=== PATIENT | female | born 1950 | race Caucasian/White ===

== ENCOUNTER → 2017-06-09 | Outpatient (CLI) | payer MEDICARE, MEDICAID, SELFPAY | PROVIDERS: Visit Provider Nurse Practitioner | DX: E78.5 Hyperlipidemia, unspecified (principal) | CPT/HCPCS: 36415; 80053; 80061 ==

== ENCOUNTER → 2017-09-16 09:47 | Outpatient (CLI) | payer MEDICARE, MEDICAID, SELFPAY ==
--- NOTE | 2017-09-16 09:55 | MM_ITS ---
MM Dig screening mamm BI w/CAD CAD Screening ORDERING PHYSICIAN : Kinza Bennett PATIENT AGE: 67 years GENDER: Female COMPARISON: Previous mammograms: April 2010, August 2011 digital mammogram comparisons. Also 2008 in 2008 film screen study INDICATION: 67-year-old. No hormones no new complaints noncontributory family history. TECHNIQUE: Standard CC and MLO images were obtained. R2 CAD reviewed. FINDINGS: RIGHT BREAST:] new Small 6 mm transverse x 7.8 mm length mm nodular density likely located at 5:30 o'clock position inferiorly on the MLO view. And just medial to central line on cc view. Recommend spot view cc 90 and MLO view of this area as well is ultrasound. LEFT BREAST:Of breast itself Stable with no significant new findings. Follow-up in one year. Slight Enlarged axillary lymph nodes bilaterally since 2012, most notable on left: . requires clinical correlation of boyd sites here and elsewhere. For example left axilla a elongated 'peanut shaped'left axillary node measures up to 2.7 cm length today. Whereas in 2012 and measured 1.8 cm in length. However Similar configuration fatty hilum. . A larger 2.9 cm length node is seen deeper at the left axilla on today's study but but appears to maintain a fatty hilum with upper normal thickness cortex . The right axilla the visualized node measures only 16 mm length but but has increased in size from 13 mm length on prior 2012 study. Slight progression of axillary nodes over time may merely reflect benign features but warrant clinical correlation. It would suggest ultrasound survey axillary nodes since the patient is returning. IMPRESSION: 1. Right breast.: Small new nodular density appears to be 5:30 position right breast. Warrant spot views and ultrasound 2. Bilateral breast ultrasound recommended to specifically include survey and cortical measurements of the moderate enlarging axillary lymph nodes versus 2012 mammogram 3.. Left breast itself is stable, with no new areas of concern at the breast itself otherwise seen. Only the larger axillary nodes observed BI-RADS Category: 0 Need Additional Imaging Evaluaiton. RECOMMENDED FOLLOW-UP: IMM - IMMEDIATE FOLLOW-UP RECOMMENDED Spot views right breast, along with bilateral breast ultrasound,. Particular attention axillary nodes to be included (A letter has been sent to the patient regarding results of the study.) In
--- NOTE | 2017-09-16 09:56 | XR_ITS ---
XR DEXA axial skeleton HISTORY: ITS.REASON: OSTEOPENIA ORDERING PHYSICIAN: Kinza Bennett PATIENT AGE: 67 years COMPARISON: None FINDINGS: The L1 L4 density has a T score of 2.2 The BMD measured at the left femoral neck is 0.914 g/cm squared with a T score of -0.9 . This is considered normal according to the World Health Organization criteria. Fracture risk is low. IMPRESSION: Normal bone density. Recommend follow-up exam August 2019
== END ==
PROVIDERS: Family Provider Family Medicine; PCP Family Medicine; Visit Provider Family Medicine
DX: Z12.31 Encounter for screening mammogram for malignant neoplasm of breast (principal); M85.89 Other specified disorders of bone density and structure, multiple sites
CPT/HCPCS: 77067; 77080

== ENCOUNTER → 2017-10-01 12:42 | Outpatient (CLI) | payer MEDICARE, MEDICAID, SELFPAY | PROVIDERS: Family Provider Family Medicine; PCP Family Medicine; Visit Provider Family Medicine | DX: R92.8 Other abnormal and inconclusive findings on diagnostic imaging of breast (principal) | CPT/HCPCS: 77065 ==

== ENCOUNTER → 2017-10-06 10:17 | Outpatient (CLI) | payer MEDICARE, MEDICAID, SELFPAY ==
--- NOTE | 2017-10-01 12:45 | MM_ITS ---
... Exam 1: MM Dig mamm DX unilat RT CAD, --Performed October 01, 2017. ... Exam 2.:.... Bilateral breast ultrasound --performed October 06, 2017 ... US breast RT complete, US breast LT complete... ORDERING PHYSICIAN : Kinza Bennett PATIENT AGE: 67 years GENDER: Female INDICATION: New small density right breast as seen on recent September 2017 screening mammogram Bilateral breast ultrasound performed due to more prominent axillary lymph nodes bilaterally COMPARISON: Previous mammograms: September 17 2011 and October 01, 2017 TECHNIQUE: . Spot view cc and MLO view with Full breast 90 degrees viewPerformed October 01, 2017. RIGHT BREAST DIAGNOSTIC MAMMOGRAM:. Spot views: We again see a small round density towards 5-5 30 position of the right breast. It measures up to 5 mm x 6 mm size. . A small stable punctate benign-appearing calcification is seen at the inferior margin of this this subtle ovoid density. On ultrasound was as a subsequent performed on 10/06/2017-reveal a small cyst appears to account for this ovoid density described above. Also on mammography there is a slight second tiny area of nodularity extending anterior from this feature described above yielding snowman shaped. This additional satellite density was only questionably seen on subsequent ultrasound. Given this and Given that the overall this area slightly more prominent on mammography than ultrasound,, and with this tiny calcification at its inferior margin,--given these features would suggest follow-up right mammogram with right breast ultrasound in 6 months.... The axilla region not included on today's right breast images is monitored by Dr. Sparrow ====IMPRESSION: A 6 mm ovoid area at 5:00 right breast most likely due to a cyst as seen on ultrasound subsequent performed on 10/06/2017 . Question slight additional t tiny additional bilobed area of nodularity extending anteriorly from this density on mammography that was only question seen on subsequent ultrasound. Would suggest follow-up right mammogram and right breast ultrasound 6 months BILATERAL BREAST ULTRASOUND Including Axillary Survey: Procedure:. ultrasound survey imaging entire right and left breast, including axillary survey performed ==RIGHT BREAST ULTRASOUND.... Including axillary survey There is a small debris filled cyst with slight irregular margin at 5:00..... This measures up to 5.2 mm size on ultrasound. On one of the images there is question of a small tiny vague cystic area seen just adjacent, which may account for its slight bilobed appearance on mammography. Survey right axilla demonstrates few benign axillary lymph nodes largest measuring 2.1 cm length. With normal appearing thin cortex.& Normal Fatty hilum at these visualized, image nodes. ==LEFT BREAST ULTRASOUND... Including axilla survey No cyst or solid nodule seen within the left breast itself. No areas of concern at the breast. The recent screening mammogram showed interval enlargement of axillary nodes here versus 2012 in 2009 The largest axillary lymph node visualized on today's measures up to 3.2 cm in length 1.2 cm AP. I am slightly concerned that the cortex measures 5.4 mm. This is slightly generous but there is a fatty hilum. I would note that larger axillary nodes of versus 2012 2009 2007 mammogram. This is most evident on the left.. This is a nonspecific finding but with this I would suggest at least CXR to correlate. Palpation of other areas including neck, supraclavicular and groin to evaluate for any abnormal adenopathy, along with palpation of abdomen to check spleen suggested. ...... IMPRESSION / SUMMARY...... Mammography & ultrasound: 1. DIAGNOSTIC RIGHT MAMMOGRAM performed on
== END ==
PROVIDERS: Family Provider Family Medicine; PCP Family Medicine; Visit Provider Family Medicine
DX: R92.8 Other abnormal and inconclusive findings on diagnostic imaging of breast (principal)
CPT/HCPCS: 76641; 77065

== ENCOUNTER → 2017-10-27 15:49 | Outpatient (POV) | payer MEDICARE, MEDICAID, SELFPAY | PROVIDERS: Family Provider Family Medicine; PCP Family Medicine | DX: Z00.00 Encounter for general adult medical examination without abnormal findings (principal) ==

== ENCOUNTER → 2018-01-04 07:27 | Outpatient (CLI) | payer MEDICARE, MEDICAID, SELFPAY ==
[2018-01-04 07:33] LABS: Microscopic, Urine URINE MICROSCOPIC (MICROSCOPIC)
[2018-01-04 08:17] LABS: Basophils # 0.2 K/mm3 (0-0.2); Basophils % 0.8 % (0.1-2.0); Eosinophils # 0.4 K/mm3 (0.0-0.4); Hematocrit 38.6 % (37.0-47.0); Hemoglobin 12.3 g/dL (12.2-16.2); Lymphocytes # 14.1 K/mm3 (0.7-4.5); Lymphocytes % 73.5 K/mm3 (10-50); Mean Corpuscular Hemoglobin 29.4 pg (27.0-31.2); Mean Platelet Volume 7.4 fl (7.4-10.4); Monocytes # 0.4 K/mm3 (0.1-1.0); Neutrophils # 4.2 K/mm3 (1.8-7.8); Neutrophils % 21.7 % (37.0-80.0); Platelet Count 169 K/mm3 (142-424); Red Cell Distribution Width 14.5 % (11.5-17.5); White Blood Count 19.2 K/mm3 (4.8-10.8)
[2018-01-04 08:33] LABS: MANUAL DIFFERENTIAL MANUAL DIFFERENTIAL (MANUAL DIFF)
[2018-01-04 08:57] LABS: Appearance,Urine CLEAR (Clear); Bilirubin,Urine Negative (Negative); Blood, Urine TRACE-L (Negative); Color,Urine YELLOW (Yellow); Glucose,Urine (UA) 2+ (Negative); Ketones,Urine Negative (Negative); Leukocyte Esterase,Urine Negative (Negative); Nitrate,Urine Negative (Negative); Protein,Urine 3+ (Negative); Specific Gravity, Urine 1.025 (1.005-1.030); Urobilinogen,Urine 0.2 EU/dl (0.2)
[2018-01-04 09:00] LABS: Creatinine,Urine Random 73 mg/dL (20-320); Total Protein,Urine Random 213.3 mg/dL (0.0-11.9)
[2018-01-04 10:03] LABS: Bacteria,Urine Trace /lpf; RBC,Urine Occasional #/hpf (0-3)
[2018-01-04 10:15] LABS: Albumin Level 2.8 gm/dL (3.4-5.0); Blood Urea Nitrogen 38 mg/dL (7-18); Calcium 7.9 mg/dL (8.5-10.1); Carbon Dioxide 26 mmol/L (21.0-32.0); Chloride 105 mmol/L (98-107); Creatinine,Serum 1.66 mg/dL (0.55-1.02); Estimated Glomerular Filt Rate 31 ml/min (>60); GFR (African American) 37 ML/MIN (>60); Glucose 279 mg/dL (74-106); Phosphorous 2.6 mg/dL (2.4-4.9); Sodium 140 mmol/L (136-145)
[2018-01-04 14:13] LABS: Eosinophils % 2 % (0-3); Lymphocytes % 69 % (10-50); Monocytes % 5 % (2-9); Neutrophils % 22 % (42-76); Platelet Estimate Normal; RBC Morphology Normal; Total Cells Counted 100
[2018-01-06 09:10] LABS: Parathyroid Hormone Intact 71 pg/mL (15-65); Vitamin D 25 Hydroxy 12.8 ng/mL (30.0-100.0)
== END ==
PROVIDERS: Visit Provider Internal Medicine Nephrology
DX: N18.3 Chronic kidney disease, stage 3 (moderate) (principal); R80.9 Proteinuria, unspecified; N25.81 Secondary hyperparathyroidism of renal origin
CPT/HCPCS: 36415; 80069; 81001; 82570; 82652; 83970; 84155; 85007; 85025

== ENCOUNTER → 2018-05-18 07:37 | Outpatient (CLI) | payer MEDICARE, MEDICAID, SELFPAY ==
[2018-05-18 08:08] LABS: Basophils # 0.1 K/mm3 (0-0.2); Basophils % 0.8 % (0.1-2.0); Eosinophils # 0.5 K/mm3 (0.0-0.4); Eosinophils % 3.4 % (0.1-12.0); Hematocrit 37.9 % (37.0-47.0); Lymphocytes # 10.6 K/mm3 (0.7-4.5); Lymphocytes % 70.1 % (10-50); Mean Corpuscular HGB Conc 31.7 g/dL (31.8-35.4); Mean Corpuscular Hemoglobin 30.2 pg (27.0-31.2); Mean Corpuscular Volume 95.3 fl (81-99); Mean Platelet Volume 7.1 fl (7.4-10.4); Monocytes # 0.3 K/mm3 (0.1-1.0); Monocytes % 1.8 % (1.7-9.3); Neutrophils # 3.6 K/mm3 (1.8-7.8); Platelet Count 150 K/mm3 (142-424); Red Blood Count 3.98 M/mm3 (4.20-5.40); Red Cell Distribution Width 14.8 % (11.5-17.5); White Blood Count 15.1 K/mm3 (4.8-10.8)
[2018-05-18 08:18] LABS: MANUAL DIFFERENTIAL MANUAL DIFFERENTIAL (MANUAL DIFF)
[2018-05-18 09:40] LABS: Lymphocytes % 61 % (10-50); Monocytes % 2 % (2-9); Neutrophils % 27 % (42-76); Platelet Estimate Normal; Total Cells Counted 100
== END ==
PROVIDERS: Visit Provider Internal Medicine Hematology & Oncology
DX: C91.10 Chronic lymphocytic leukemia of B-cell type not having achieved remission (principal)
CPT/HCPCS: 36415; 85007; 85025

== ENCOUNTER → 2018-07-14 07:15 | Outpatient (CLI) | payer MEDICARE, MEDICAID, SELFPAY ==
[2018-07-14 13:36] LABS: Alanine Aminotransferase 55 U/L (12-78); Albumin Level 3.1 gm/dL (3.4-5.0); Alkaline Phosphatase 73 U/L (46-116); Aspartate Amino Transferase 25 U/L (15-37); Bilirubin,Direct 0.1 mg/dL (0.0-0.2); Bilirubin,Indirect 0.3 mg/dL (0.0-0.9); Bilirubin,Total 0.4 mg/dL (0.2-1.0); Chol/HDL Ratio 2.7 (1-3.5); Cholesterol 118 mg/dL (140-200); HDL Cholesterol 43 mg/dL (29-89); LDL Cholesterol 48 mg/dL (0-130); Triglycerides 135 mg/dL (30-200); VLDL Cholesterol 27 mg/dL (0-40)
== END ==
PROVIDERS: Visit Provider Nurse Practitioner
DX: E78.5 Hyperlipidemia, unspecified (principal)
CPT/HCPCS: 36415; 80061; 80076

== ENCOUNTER → 2018-09-13 07:22 | Outpatient (CLI) | payer MEDICARE, MEDICAID, SELFPAY ==
[2018-09-13 07:26] LABS: Microscopic, Urine URINE MICROSCOPIC (MICROSCOPIC)
[2018-09-13 07:52] LABS: Basophils # 0.2 K/mm3 (0-0.2); Basophils % 0.9 % (0.1-2.0); Eosinophils # 0.5 K/mm3 (0.0-0.4); Eosinophils % 2.9 % (0.1-12.0); Hematocrit 40.8 % (37.0-47.0); Hemoglobin 12.9 g/dL (12.2-16.2); Lymphocytes # 12.7 K/mm3 (0.7-4.5); Lymphocytes % 72.4 % (10-50); Mean Corpuscular HGB Conc 31.5 g/dL (31.8-35.4); Mean Corpuscular Hemoglobin 29.6 pg (27.0-31.2); Mean Corpuscular Volume 93.9 fl (81-99); Mean Platelet Volume 7.2 fl (7.4-10.4); Monocytes # 0.3 K/mm3 (0.1-1.0); Monocytes % 1.6 % (1.7-9.3); Neutrophils # 3.9 K/mm3 (1.8-7.8); Neutrophils % 22.2 % (37.0-80.0); Platelet Count 158 K/mm3 (142-424); Red Blood Count 4.35 M/mm3 (4.20-5.40); Red Cell Distribution Width 14.9 % (11.5-17.5); White Blood Count 17.6 K/mm3 (4.8-10.8)
[2018-09-13 08:07] LABS: MANUAL DIFFERENTIAL MANUAL DIFFERENTIAL (MANUAL DIFF)
[2018-09-13 08:18] LABS: Appearance,Urine CLEAR (Clear); Bilirubin,Urine Negative (Negative); Blood, Urine Negative (Negative); Color,Urine YELLOW (Yellow); Glucose,Urine (UA) Negative (Negative); Ketones,Urine Negative (Negative); Leukocyte Esterase,Urine Negative (Negative); Nitrate,Urine Negative (Negative); Protein,Urine 2+ (Negative); Urobilinogen,Urine 0.2 EU/dl (0.2)
[2018-09-13 08:27] LABS: Creatinine,Urine Random 96 mg/dL (20-320); Total Protein,Urine Random 86.1 mg/dL (0.0-11.9)
[2018-09-13 09:01] LABS: Bacteria,Urine Trace /lpf; Mucus,Urine 1+ /lpf; RBC,Urine Occasional #/hpf (0-3); WBC,Urine Occasional #/hpf (0-3)
[2018-09-13 09:27] LABS: Albumin Level 3.2 gm/dL (3.4-5.0); Anion Gap 11.8 mEq/L (5-15); Blood Urea Nitrogen 36 mg/dL (7-18); Carbon Dioxide 29 mmol/L (21.0-32.0); Chloride 109 mmol/L (98-107); Creatinine,Serum 1.69 mg/dL (0.55-1.02); Estimated Glomerular Filt Rate 30 ml/min (>60); GFR (African American) 36 ML/MIN (>60); Glucose 147 mg/dL (74-106); Phosphorous 4.1 mg/dL (2.4-4.9); Potassium 4.8 mmoL/L (3.5-5.1); Sodium 145 mmol/L (136-145)
[2018-09-13 10:48] LABS: Eosinophils % 1 % (0-3); Lymphocytes % 68 % (10-50); Monocytes % 2 % (2-9); Neutrophils % 20 % (42-76); Platelet Estimate Normal; Total Cells Counted 100
[2018-09-14 08:45] LABS: Vitamin D 25 Hydroxy 24.9 ng/mL (30.0-100.0)
[2018-09-15 12:57] LABS: Parathyroid Hormone Intact 67 pg/mL (15-65)
== END ==
PROVIDERS: Visit Provider Internal Medicine Nephrology
DX: N25.81 Secondary hyperparathyroidism of renal origin (principal); R80.9 Proteinuria, unspecified; N18.9 Chronic kidney disease, unspecified
CPT/HCPCS: 36415; 80069; 81001; 82570; 82652; 83970; 84155; 85007; 85025

== ENCOUNTER → 2018-11-24 07:42 | Outpatient (CLI) | payer MEDICARE, MEDICAID, SELFPAY ==
[2018-11-24 08:10] LABS: Basophils # 0.1 K/mm3 (0-0.2); Basophils % 0.7 % (0.1-2.0); Eosinophils # 0.5 K/mm3 (0.0-0.4); Eosinophils % 2.7 % (0.1-12.0); Hematocrit 37.3 % (37.0-47.0); Lymphocytes # 11.5 K/mm3 (0.7-4.5); Lymphocytes % 69.7 % (10-50); Mean Corpuscular HGB Conc 32.2 g/dL (31.8-35.4); Mean Corpuscular Volume 90.1 fl (81-99); Monocytes # 0.4 K/mm3 (0.1-1.0); Monocytes % 2.4 % (1.7-9.3); Neutrophils % 24.4 % (37.0-80.0); Platelet Count 175 K/mm3 (142-424); Red Blood Count 4.14 M/mm3 (4.20-5.40); Red Cell Distribution Width 14.6 % (11.5-17.5); White Blood Count 16.4 K/mm3 (4.8-10.8)
[2018-11-24 08:18] LABS: MANUAL DIFFERENTIAL MANUAL DIFFERENTIAL (MANUAL DIFF)
[2018-11-24 12:54] LABS: Eosinophils % 1 % (0-3); Lymphocytes % 67 % (10-50); Monocytes % 3 % (2-9); Neutrophils % 29 % (42-76); Total Cells Counted 100
[2018-11-24 12:55] LABS: Platelet Estimate Normal; RBC Morphology Normal
== END ==
PROVIDERS: Visit Provider Internal Medicine Hematology & Oncology
DX: C91.90 Lymphoid leukemia, unspecified not having achieved remission (principal)
CPT/HCPCS: 36415; 85007; 85025

== ENCOUNTER → 2019-02-15 07:14 | Outpatient (CLI) | payer MEDICARE, MEDICAID, SELFPAY ==
[2019-02-15 07:16] LABS: Microscopic, Urine URINE MICROSCOPIC (MICROSCOPIC)
[2019-02-15 07:30] LABS: Appearance,Urine CLEAR (Clear); Bilirubin,Urine Negative (Negative); Blood, Urine TRACE-L (Negative); Color,Urine YELLOW (Yellow); Glucose,Urine (UA) Negative (Negative); Ketones,Urine Negative (Negative); Leukocyte Esterase,Urine Negative (Negative); Nitrate,Urine Negative (Negative); Protein,Urine 2+ (Negative); Specific Gravity, Urine 1.025 (1.005-1.030); Urobilinogen,Urine 0.2 EU/dl (0.2)
[2019-02-15 07:39] LABS: Bacteria,Urine Trace /lpf; Creatinine,Urine Random 93 mg/dL (20-320); RBC,Urine Occasional #/hpf (0-3); Total Protein,Urine Random 82.1 mg/dL (0.0-11.9)
[2019-02-15 09:29] LABS: Albumin Level 3.4 gm/dL (3.4-5.0); Anion Gap 11.3 mEq/L (5-15); Blood Urea Nitrogen 38 mg/dL (7-18); Calcium 9.1 mg/dL (8.5-10.1); Carbon Dioxide 29 mmol/L (21.0-32.0); Chloride 108 mmol/L (98-107); Creatinine,Serum 1.78 mg/dL (0.55-1.02); Estimated Glomerular Filt Rate 28 ml/min (>60); GFR (African American) 34 ML/MIN (>60); Glucose 176 mg/dL (74-106); Potassium 4.3 mmoL/L (3.5-5.1); Sodium 144 mmol/L (136-145)
== END ==
PROVIDERS: Visit Provider Internal Medicine Nephrology
DX: R80.9 Proteinuria, unspecified (principal); N18.3 Chronic kidney disease, stage 3 (moderate)
CPT/HCPCS: 36415; 80069; 81001; 82570; 84155

== ENCOUNTER → 2019-03-08 12:17 | Outpatient (POV) | payer MEDICARE, MEDICAID, SELFPAY | DX: Z00.00 Encounter for general adult medical examination without abnormal findings (principal) ==

== ENCOUNTER → 2019-05-26 07:34 | Outpatient (CLI) | payer MEDICARE, MEDICAID, SELFPAY ==
[2019-05-26 07:54] LABS: Basophils # 0.1 K/mm3 (0-0.2); Basophils % 0.8 % (0.1-2.0); Eosinophils # 0.4 K/mm3 (0.0-0.4); Eosinophils % 2.3 % (0.1-12.0); Hemoglobin 12.8 g/dL (12.2-16.2); Lymphocytes # 11.4 K/mm3 (0.7-4.5); Lymphocytes % 68.5 % (10-50); Mean Corpuscular HGB Conc 30.6 g/dL (31.8-35.4); Mean Corpuscular Volume 97.8 fl (81-99); Mean Platelet Volume 7.9 fl (7.4-10.4); Monocytes # 0.3 K/mm3 (0.1-1.0); Monocytes % 1.8 % (1.7-9.3); Neutrophils # 4.5 K/mm3 (1.8-7.8); Neutrophils % 26.6 % (37.0-80.0); Platelet Count 145 K/mm3 (142-424); Red Blood Count 4.29 M/mm3 (4.20-5.40); White Blood Count 16.7 K/mm3 (4.8-10.8)
[2019-05-26 08:04] LABS: MANUAL DIFFERENTIAL MANUAL DIFFERENTIAL (MANUAL DIFF)
[2019-05-26 09:10] LABS: Alanine Aminotransferase 80 U/L (12-78); Albumin Level 3.2 gm/dL (3.4-5.0); Albumin/Globulin Ratio 1.3 (1.1-1.8); Alkaline Phosphatase 83 U/L (46-116); Anion Gap 14.7 mEq/L (5-15); Aspartate Amino Transferase 63 U/L (15-37); Bilirubin,Total 0.3 mg/dL (0.2-1.0); Blood Urea Nitrogen 39 mg/dL (7-18); Calcium 8.7 mg/dL (8.5-10.1); Carbon Dioxide 27 mmol/L (21.0-32.0); Chloride 108 mmol/L (98-107); Creatinine,Serum 1.89 mg/dL (0.55-1.02); Estimated Glomerular Filt Rate 26 ml/min (>60); GFR (African American) 32 ML/MIN (>60); Globulin 2.5 gm/dl (1.3-3.2); Glucose 176 mg/dL (74-106); Potassium 5.7 mmoL/L (3.5-5.1); Sodium 144 mmol/L (136-145); Total Protein,Serum 5.7 gm/dL (6.4-8.2)
[2019-05-26 09:32] LABS: Lymphocytes % 62 % (10-50); Monocytes % 7 % (2-9); Neutrophils % 26 % (42-76); Total Cells Counted 100
[2019-05-26 09:33] LABS: Acanthocytes 1+; Anisocytosis 1+; Hypochromasia 1+; Platelet Estimate Normal; Poikilocytosis 1+; Stomatocytes 1+
== END ==
PROVIDERS: Visit Provider Internal Medicine Hematology & Oncology
DX: C91.90 Lymphoid leukemia, unspecified not having achieved remission (principal)
CPT/HCPCS: 36415; 80053; 85007; 85025

== ENCOUNTER → 2020-07-16 07:40 | Outpatient (CLI) | payer MEDICARE, MEDICAID, SELFPAY ==
[2020-07-16 07:45] LABS: Microscopic, Urine URINE MICROSCOPIC (MICROSCOPIC)
[2020-07-16 09:05] LABS: Appearance,Urine CLEAR (Clear); Bilirubin,Urine Negative (Negative); Blood, Urine TRACE-L (Negative); Color,Urine YELLOW (Yellow); Glucose,Urine (UA) Negative (Negative); Ketones,Urine Negative (Negative); Leukocyte Esterase,Urine Negative (Negative); Nitrate,Urine Negative (Negative); PH,Urine 5.5 (5.0-8.5); Protein,Urine 1+ (Negative); Urobilinogen,Urine 0.2 EU/dl (0.2)
[2020-07-16 09:14] LABS: Creatinine,Urine Random 67 mg/dL (Not Estab.)
[2020-07-16 09:23] LABS: Basophils # 0.2 K/mm3 (0-0.2); Eosinophils # 0.4 K/mm3 (0.0-0.4); Eosinophils % 1.8 % (0.1-12.0); Hematocrit 42.5 % (37.0-47.0); Hemoglobin 13.6 g/dL (12.2-16.2); Lymphocytes # 19.1 K/mm3 (0.7-4.5); Lymphocytes % 78.4 % (10-50); Mean Corpuscular HGB Conc 32.1 g/dL (31.8-35.4); Mean Corpuscular Volume 96.8 fl (81-99); Mean Platelet Volume 8.1 fl (7.4-10.4); Monocytes # 0.4 K/mm3 (0.1-1.0); Monocytes % 1.7 % (1.7-9.3); Neutrophils # 4.2 K/mm3 (1.8-7.8); Neutrophils % 17.2 % (37.0-80.0); Platelet Count 158 K/mm3 (142-424); Red Cell Distribution Width 15.4 % (11.5-17.5); White Blood Count 24.4 K/mm3 (4.8-10.8)
[2020-07-16 09:26] LABS: MANUAL DIFFERENTIAL MANUAL DIFFERENTIAL (MANUAL DIFF)
[2020-07-16 09:53] LABS: Albumin Level 3.9 g/dl (3.5-5.0); Blood Urea Nitrogen 39 mg/dl (7-17); Calcium 9.3 mg/dl (8.4-10.2); Carbon Dioxide 28 mmol/L (22.0-30.0); Chloride 104 mmol/L (98-107); Estimated Glomerular Filt Rate 28 ml/min (>60); GFR (African American) 34 ML/MIN (>60); Glucose 84 mg/dl (74-100); Phosphorous 4.9 mg/dl (2.5-4.5); Sodium 140 mmol/L (136-145)
[2020-07-16 10:07] LABS: Intact Parathyroid Hormone 105.7 pg/mL (7.5-53.5)
[2020-07-16 10:11] LABS: 25-OH Vitamin D, Total 35.6 ng/mL (30-100)
[2020-07-16 11:45] LABS: Lymphocytes % 69 % (10-50); Monocytes % 10 % (2-9); Neutrophils % 20 % (42-76); Platelet Estimate Normal; RBC Morphology Normal; Total Cells Counted 100
== END ==
PROVIDERS: Visit Provider Internal Medicine Nephrology
DX: N18.4 Chronic kidney disease, stage 4 (severe) (principal)
CPT/HCPCS: 36415; 80069; 81001; 82306; 82570; 83970; 84155; 85007; 85025

== ENCOUNTER → 2020-11-18 10:36 | Outpatient (CLI) | payer MEDICARE, MEDICAID, SELFPAY ==
[2020-11-18 11:25] LABS: Creatinine,Urine Random 76 mg/dL (Not Estab.)
[2020-11-18 11:51] LABS: Albumin Level 3.7 g/dl (3.5-5.0); Anion Gap 8.4 mEq/L (5-15); Blood Urea Nitrogen 46 mg/dl (7-17); Calcium 8.6 mg/dl (8.4-10.2); Carbon Dioxide 27 mmol/L (22.0-30.0); Chloride 110 mmol/L (98-107); Estimated Glomerular Filt Rate 26 ml/min (>60); GFR (African American) 32 ML/MIN (>60); Glucose 159 mg/dl (74-100); Phosphorous 3.9 mg/dl (2.5-4.5); Potassium 4.4 mmoL/L (3.5-5.1); Sodium 141 mmol/L (136-145)
== END ==
PROVIDERS: Visit Provider Internal Medicine Nephrology
DX: N18.4 Chronic kidney disease, stage 4 (severe) (principal)
CPT/HCPCS: 36415; 80069; 82306; 82570; 84155

== ENCOUNTER → 2020-11-25 11:55 | Outpatient (POV) | payer MEDICARE, MEDICAID, SELFPAY | PROVIDERS: Visit Provider Internal Medicine Nephrology | DX: Z00.00 Encounter for general adult medical examination without abnormal findings (principal) ==

== ENCOUNTER → 2021-01-08 09:22 | Outpatient (CLI) | payer MEDICARE, MEDICAID, SELFPAY ==
[2021-01-08 09:43] LABS: Eosinophils # 0.7 K/mm3 (0.0-0.4)
[2021-01-08 09:50] LABS: MANUAL DIFFERENTIAL MANUAL DIFFERENTIAL (MANUAL DIFF)
[2021-01-08 09:59] LABS: Basophils % 2.9 % (0.1-2.0); Eosinophils % 2.6 % (0.1-12.0); Hematocrit 36.5 % (37.0-47.0); Hemoglobin 11.9 g/dL (12.2-16.2); Lymphocytes # 21.3 K/mm3 (0.7-4.5); Lymphocytes % 76.2 % (10-50); Mean Corpuscular HGB Conc 32.6 g/dL (31.8-35.4); Mean Corpuscular Hemoglobin 30.5 pg (27.0-31.2); Mean Corpuscular Volume 93.7 fl (81-99); Mean Platelet Volume 7.6 fl (7.4-10.4); Monocytes # 0.4 K/mm3 (0.1-1.0); Monocytes % 1.4 % (1.7-9.3); Neutrophils # 4.7 K/mm3 (1.8-7.8); Neutrophils % 16.9 % (37.0-80.0); Platelet Count 149 K/mm3 (142-424)
[2021-01-08 10:00] LABS: Basophils # 0.8 K/mm3 (0-0.2)
[2021-01-08 10:25] LABS: Eosinophils % 2 % (0-3); Lymphocytes % 81 % (10-50); Monocytes % 1 % (2-9); Neutrophils % 12 % (42-76); Total Cells Counted 100
[2021-01-08 10:26] LABS: Platelet Estimate Normal
[2021-01-08 10:27] LABS: RBC Morphology Normal
== END ==
PROVIDERS: Visit Provider Internal Medicine Hematology & Oncology
DX: C91.10 Chronic lymphocytic leukemia of B-cell type not having achieved remission (principal)
CPT/HCPCS: 36415; 85007; 85025

== ENCOUNTER 2021-01-29 09:16 | Emergency (ER) | payer MEDICARE, MEDICAID, SELFPAY ==
[2021-01-29 10:03] VITALS: BP 143/67; PULSE 82; RESP 19; TEMP 36.8; O2SAT 98; BMI 32.5
--- NOTE | 2021-01-29 10:06 | HMH.EDUTC ---
[facility] [place] Clinical Impression: UTI (urinary tract infection) Qualifiers: Urinary tract infection type: site unspecified Hematuria presence: with hematuria Qualified Code(s): N39.0 - Urinary tract infection, site not specified; R31.9 - Hematuria, unspecified Disposition: Home, Self-Care Condition on Discharge: Good Instructions: DI for Urinary Tract Infection (UTI), Cefdinir Additional Instructions: *Increase fluids. Water not Soda or Tea *Start antibiotic immediately and be sure to take as ordered for the FULL length of time although you should start to see improvement over the next 48 hours *Be SURE to follow up anytime for new or worsening symptoms with your family doctor. AND in 48 hours for urine culture results with your family doctor, if you do not have a doctor then you may call back to the [facility] for urine culture results and further treatment. We do recommend that you choose and establish care with a Primary Care Physician. AND follow up with them in 10-14 days to repeat UA to ensure infection is resolved and blood no longer present *Be sure to let your PCP know that we sent urine cultures from the [facility] so they can follow up to ensure that you area the on the correct antibiotic Call your doctor office and make appointment for 48 hours (2 days from today) to follow up and get the results of your urine culture and further treatment Prescriptions: Cefdinir [Omnicef 300mg Capsule] 300 mg PO BID #14 cap Transmission Status: Pending to [id number] Referrals: Kinza Bennett [Primary Care Provider] - As needed Time of Disposition: 10:17 Medical Decision Making - Dirk Inquiry Pt receiving controlled substance: No Dirk was queried for this patient: No Vital Signs: 01/29/21 10:03 Temperature 98.2 F Temperature Source Oral Pulse Rate [Left] 82 Respiratory Rate 19 Blood Pressure [Right Arm] 143/67 H Blood Pressure Mean [Right Arm] 92 02 Sat by Pulse Oximetry 98 - Lab Data Lab results reviewed: Yes: I reviewed the patient's lab results. Orders (Tests/Meds): ORDERS Category Date Time Status Urine Culture Stat Micro 01/29/21 10:06 Ordered Medical Decision Narrative: Medication dosed per pharmacy [facility] [place] - General Stated complaint: possible uti Time Seen by Provider: 01/29/21 10:07 Mode of Arrival: Ambulatory Source of Information: Patient Limitations: No Limitations Description of Symptoms (Recalled from Triage Doc. by RN): pt c/o urinary frequency since yesterday. pt thinks she has a uti. HEENT Symptoms (Recalled from RN notes): No Resp Symptoms (Recalled from RN notes): No Skin Symptoms (Recalled from RN notes): No MS Symptoms (Recalled from RN notes): No Functional Status (Recalled from RN notes): na - History of Present Illness Provider Complaint: Patient states that she has been having feeling of urgency and frequency since yesterday States that she feels like she may have a UTI again States that she had UTI in December and took Cipro but doesnt feel like it cleared it all the way - Related Data Home Medications Medication Instructions Recorded Confirmed Doxazosin Mesylate [Doxazosin 1mg 1 mg PO DAILY 11/23/17 04/24/18 Tab] Insulin Aspart [Novolog Flexpen] 10 - 14 units SQ TID 11/23/17 11/29/17 Metoprolol Succinate 25 mg PO BID 11/23/17 04/24/18 Pravastatin Sodium 80 mg PO DAILY 11/23/17 04/24/18 calcitrioL [Calcitriol 0.25mcg 0.25 mg PO WEEKLY 11/23/17 04/24/18 Capsule] lisinopriL [Lisinopril 30mg Tablet] 30 mg PO BID 11/23/17 04/24/18 Ezetimibe [Zetia] 10 mg PO HS 04/24/18 04/24/18 Insulin Degludec [Tresiba 32 unit SQ BID 04/24/18 04/24/18 Flextouch U-100] Previous Rx's Medication Instructions Recorded prednisoLONE acetate [Pred Forte 1 - 2 drops EYE-BOTH QID #1 04/24/18 1% opth solution 5mL] drops.susp Cefdinir [Omnicef 300mg Capsule] 300 mg PO BID #14 cap 01/29/21 Allergies Allergy/AdvReac Type Severity Reaction Status Date / Time
[2021-01-29 10:23] VITALS: BP 140/72; PULSE 88; RESP 19; TEMP 36.8
[2021-01-29 12:05] LABS: Apearance,Urine Clear (Clear); Bilirubin,Urine Negative (Negative); Blood, Urine 3+ (Negative); Color,Urine Yellow (Yellow); Glucose,Urine (UA) Negative (Negative); Ketones,Urine Negative (Negative); PH,Urine 5.5 (5.0-8.5); Protein,Urine 1+ (Negative); Specific Gravity, Urine 1.025 (1.005-1.030)
[2021-01-29 12:06] LABS: UTC Leukocyte Esterase,Urine 2+ (Negative); UTC Nitrate,Urine Negative (Negative); Urobilinogen,Urine 0.2 EU/dl (0.2)
== END 2021-01-29 10:26 | disposition home or self-care (01) ==
PROVIDERS: Emergency Provider Nurse Practitioner; PCP Family Medicine
DX: N30.01 Acute cystitis with hematuria (principal); B95.61 Methicillin susceptible Staphylococcus aureus infection as the cause of diseases classified elsewhere; E10.9 Type 1 diabetes mellitus without complications; I10 Essential (primary) hypertension; E78.5 Hyperlipidemia, unspecified; Z79.899 Other long term (current) drug therapy
CPT/HCPCS: G0463; 81003; 87086; 87088; 87186; 99202

== ENCOUNTER → 2021-04-21 09:59 | Outpatient (CLI) | payer MEDICARE, MEDICAID, SELFPAY ==
[2021-04-21 10:30] LABS: Creatinine,Urine Random 93 mg/dL (Not Estab.)
[2021-04-21 11:06] LABS: Albumin Level 3.5 g/dl (3.5-5.0); Anion Gap 12.6 mEq/L (5-15); Blood Urea Nitrogen 37 mg/dl (7-17); Calcium 8.6 mg/dl (8.4-10.2); Carbon Dioxide 26 mmol/L (22.0-30.0); Chloride 109 mmol/L (98-107); Estimated Glomerular Filt Rate 32 ml/min (>60); GFR (African American) 38 ML/MIN (>60); Glucose 128 mg/dl (74-100); Phosphorous 3.6 mg/dl (2.5-4.5); Potassium 4.6 mmoL/L (3.5-5.1); Sodium 143 mmol/L (136-145)
[2021-04-21 11:19] LABS: Microalbumin/Creatinine Ratio 994.4
== END ==
PROVIDERS: Visit Provider Internal Medicine Nephrology
DX: N18.4 Chronic kidney disease, stage 4 (severe) (principal)
CPT/HCPCS: 36415; 80069; 82043; 82570

== ENCOUNTER → 2021-05-26 11:04 | Outpatient (POV) | payer MEDICARE, MEDICAID, SELFPAY | PROVIDERS: Visit Provider Internal Medicine Nephrology | DX: Z00.00 Encounter for general adult medical examination without abnormal findings (principal) ==

== ENCOUNTER → 2021-07-08 10:15 | Outpatient (CLI) | payer MEDICARE, MEDICAID, SELFPAY ==
[2021-07-08 10:41] LABS: Basophils # 0.5 K/mm3 (0-0.2); Basophils % 1.8 % (0.1-2.0); Eosinophils # 0.5 K/mm3 (0.0-0.4); Eosinophils % 1.8 % (0.1-12.0); Hematocrit 38.6 % (37.0-47.0); Hemoglobin 12.2 g/dL (12.2-16.2); Lymphocytes # 21.5 K/mm3 (0.7-4.5); Mean Corpuscular HGB Conc 31.6 g/dL (31.8-35.4); Mean Corpuscular Hemoglobin 31.3 pg (27.0-31.2); Mean Corpuscular Volume 99.1 fl (81-99); Monocytes # 0.4 K/mm3 (0.1-1.0); Monocytes % 1.5 % (1.7-9.3); Platelet Count 145 K/mm3 (142-424); Red Cell Distribution Width 16.2 % (11.5-17.5); White Blood Count 27.9 K/mm3 (4.8-10.8)
[2021-07-08 11:01] LABS: MANUAL DIFFERENTIAL MANUAL DIFFERENTIAL (MANUAL DIFF)
[2021-07-08 13:23] LABS: Eosinophils % 2 % (0-3); Lymphocytes % 80 % (10-50); Neutrophils % 18 % (42-76); Platelet Estimate Normal; RBC Morphology Normal; Total Cells Counted 100
== END ==
PROVIDERS: Visit Provider Internal Medicine Hematology & Oncology
DX: C91.10 Chronic lymphocytic leukemia of B-cell type not having achieved remission (principal)
CPT/HCPCS: 36415; 85007; 85025

== ENCOUNTER 2021-09-12 09:15 | Emergency (ER) | payer MEDICARE, MEDICAID, SELFPAY ==
[2021-09-12 10:20] VITALS: BP 157/63; PULSE 78; RESP 18; TEMP 36.6; O2SAT 95; BMI 37.0
--- NOTE | 2021-09-12 10:39 | HMH.EDUTC ---
[facility] [place] Clinical Impression: UTI (urinary tract infection) Qualifiers: Urinary tract infection type: site unspecified Hematuria presence: with hematuria Qualified Code(s): N39.0 - Urinary tract infection, site not specified Chronic renal failure, stage 3 (moderate) Qualifiers: Chronic kidney disease stage 3 subtype: unspecified whether 3a or 3b Qualified Code(s): N18.30 - Chronic kidney disease, stage 3 unspecified Diabetes Qualifiers: Diabetes mellitus type: type 2 Diabetes mellitus mcc insulin use: unspecified mcc insulin use status Diabetes mellitus complication status: with kidney complications Diabetes mellitus complication detail: with chronic kidney disease Chronic kidney disease stage: stage 3 (moderate) Chronic kidney disease stage 3 subtype: unspecified whether 3a or 3b Qualified Code(s): E11.22 - Type 2 diabetes mellitus with diabetic chronic kidney disease Disposition: Home, Self-Care Condition on Discharge: Good Instructions: Urinary Tract Infection, Urine Culture, DI for Urinary Tract Infection (UTI) Additional Instructions: Drink plenty of fluids. Take tylenol or ibuprofen for pain or fever. Take the medications as directed. Follow up with your regular doctor. GO TO THE ER FOR ANY WORSENING SYMPTOMS We will culture the urine. That will tell what bacteria is causing your infection and which antibiotics will treat it best. Sometimes the first antibiotic we prescribe turns out to not work against different bacteria. So, make sure you follow up within 3 days if you are not getting better. Prescriptions: Ciprofloxacin HCl [Cipro 250mg Tab] 250 mg PO BID 7 Days #14 tab Transmission Status: Received by [id number] Referrals: Kinza Bennett [Primary Care Provider] - Time of Disposition: 11:06 Medical Decision Making - Medical Records Medical records reviewed: No: I reviewed the patient's medical records. - Dirk Inquiry Pt receiving controlled substance: No Vital Signs: 09/12/21 10:20 09/12/21 11:12 Temperature 97.8 F 97.8 F Temperature Source Oral Pulse Rate 78 Pulse Rate [Right Brachial] 78 Respiratory Rate 18 18 Blood Pressure 157/63 H Blood Pressure [Right Arm] 157/63 H Blood Pressure Mean [Right Arm] 94 Blood Pressure Source [Right Arm] Automatic Cuff Blood Pressure Position [Right Arm] Sitting 02 Sat by Pulse Oximetry 95 Oxygen Delivery Method Room Air - Lab Data Lab results reviewed: Yes: I reviewed the patient's lab results. Lab Results 09/12/21 10:46: Urine Color Yellow, Urine Appearance Clear, Urine pH 5.5, Ur Specific [place] 1.030, Urine Protein 1+, Urine Glucose (UA) 100, Urine Ketones Negative, Urine Blood Trace, Urine Nitrate Negative, Urine Bilirubin Negative, Urine Urobilinogen 0.2, Ur Leukocyte Esterase Trace Orders (Tests/Meds): ORDERS Category Date Time Status Urine Culture Stat Micro 09/12/21 10:30 Results [facility] [place] - General Stated complaint: possible uti Time Seen by Provider: 09/12/21 10:39 Mode of Arrival: Ambulatory Source of Information: Patient Limitations: No Limitations Description of Symptoms (Recalled from Triage Doc. by RN): PATIENT C/O URINARY FREQUENCY AND PRESSURE AT END OF URINATION X 5 DAYS HEENT Symptoms (Recalled from RN notes): No Resp Symptoms (Recalled from RN notes): No Skin Symptoms (Recalled from RN notes): No MS Symptoms (Recalled from RN notes): No Functional Status (Recalled from RN notes): WNL - History of Present Illness Provider Complaint: She c/o dysuria for the past 3 days. She has a history of getting uti's occasionally. 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 - Related Data Home Medications Medication Instructions Recorded Confirmed Doxazosin Mesylate [Doxazosin 1mg 1 mg PO DAILY 11/23/17 04/24/18 Tab] Insulin Aspart [Novolog Flexpen] 10 - 14 units SQ TID 11/23/17 11/29/17 Metoprolol Succinate 25 mg PO BID 11/23/17 09/12/21 Pravastatin Sodiu
[2021-09-12 11:12] VITALS: BP 157/63; PULSE 78; RESP 18; TEMP 36.6; O2SAT 95
[2021-09-12 14:23] LABS: Apearance,Urine Clear (Clear); Bilirubin,Urine Negative (Negative); Blood, Urine Trace (Negative); Color,Urine Yellow (Yellow); Glucose,Urine (UA) 100 (Negative); Ketones,Urine Negative (Negative); PH,Urine 5.5 (5.0-8.5); Protein,Urine 1+ (Negative); Urobilinogen,Urine 0.2 EU/dl (0.2)
[2021-09-12 14:24] LABS: UTC Leukocyte Esterase,Urine Trace (Negative); UTC Nitrate,Urine Negative (Negative)
== END 2021-09-12 11:17 | disposition home or self-care (01) ==
PROVIDERS: Emergency Provider Nurse Practitioner Family; PCP Family Medicine
DX: N30.00 Acute cystitis without hematuria (principal); N18.30 Chronic kidney disease, stage 3 unspecified; E11.22 Type 2 diabetes mellitus with diabetic chronic kidney disease; I10 Essential (primary) hypertension; E78.5 Hyperlipidemia, unspecified
CPT/HCPCS: 81003; 87086; 87088; 87186; 99213; G0463

== ENCOUNTER → 2021-12-31 09:29 | Outpatient (CLI) | payer MEDICARE, MEDICAID, SELFPAY ==
[2021-12-31 09:57] LABS: Basophils # 0.3 K/mm3 (0-0.2); Basophils % 1.2 % (0.1-2.0); Eosinophils # 0.3 K/mm3 (0.0-0.4); Eosinophils % 1.5 % (0.1-12.0); Hematocrit 36.3 % (37.0-47.0); Hemoglobin 11.3 g/dL (12.2-16.2); Lymphocytes # 16.2 K/mm3 (0.7-4.5); Lymphocytes % 77.4 % (10-50); Mean Corpuscular HGB Conc 31.2 g/dL (31.8-35.4); Mean Corpuscular Hemoglobin 32.7 pg (27.0-31.2); Mean Corpuscular Volume 104.8 fl (81-99); Mean Platelet Volume 8.3 fl (7.4-10.4); Monocytes # 0.3 K/mm3 (0.1-1.0); Monocytes % 1.5 % (1.7-9.3); Neutrophils # 3.9 K/mm3 (1.8-7.8); Neutrophils % 18.4 % (37.0-80.0); Platelet Count 128 K/mm3 (142-424); Red Blood Count 3.46 M/mm3 (4.20-5.40); Red Cell Distribution Width 16.6 % (11.5-17.5); White Blood Count 20.9 K/mm3 (4.8-10.8)
[2021-12-31 09:59] LABS: MANUAL DIFFERENTIAL MANUAL DIFFERENTIAL (MANUAL DIFF)
[2021-12-31 10:12] LABS: Lymphocytes % 78 % (10-50); Macrocytosis 1+; Monocytes % 2 % (2-9); Neutrophils % 20 % (42-76); Total Cells Counted 100
[2021-12-31 10:13] LABS: Anisocytosis 1+; Hypochromasia 1+; Platelet Estimate Normal
[2021-12-31 10:22] LABS: Albumin Level 3.3 g/dl (3.5-5.0); Anion Gap 10.3 mEq/L (5-15); Blood Urea Nitrogen 42 mg/dl (7-17); Calcium 8.6 mg/dl (8.4-10.2); Carbon Dioxide 26 mmol/L (22.0-30.0); Chloride 112 mmol/L (98-107); Estimated Glomerular Filt Rate 26 ml/min (>60); GFR (African American) 32 ML/MIN (>60); Glucose 145 mg/dl (74-100); Phosphorous 4.6 mg/dl (2.5-4.5); Potassium 5.3 mmoL/L (3.5-5.1); Sodium 143 mmol/L (136-145)
[2021-12-31 10:33] LABS: Intact Parathyroid Hormone 211.4 pg/mL (7.5-53.5)
[2021-12-31 10:36] LABS: 25-OH Vitamin D, Total 37.2 ng/mL (30-100)
[2021-12-31 10:49] LABS: Creatinine,Urine Random 112 mg/dL (Not Estab.)
== END ==
PROVIDERS: PCP Internal Medicine Hematology & Oncology; Visit Provider Internal Medicine Nephrology
DX: N18.32 Chronic kidney disease, stage 3b (principal); C91.10 Chronic lymphocytic leukemia of B-cell type not having achieved remission
CPT/HCPCS: 36415; 80069; 82043; 82306; 82570; 83970; 85007; 85025

== ENCOUNTER → 2022-01-05 10:39 | Outpatient (POV) | payer MEDICARE, MEDICAID, SELFPAY | PROVIDERS: Visit Provider Internal Medicine Nephrology | DX: Z00.00 Encounter for general adult medical examination without abnormal findings (principal) ==

== ENCOUNTER → 2022-02-17 08:00 | Outpatient (CLI) | payer MEDICARE, MEDICAID, SELFPAY ==
[2022-02-17 09:24] LABS: Alanine Aminotransferase 35 U/L (12-78); Albumin Level 3.3 g/dl (3.5-5.0); Albumin/Globulin Ratio 1.7 (1.1-1.8); Alkaline Phosphatase 69 U/L (38-126); Anion Gap 8.7 mEq/L (5-15); Aspartate Amino Transferase 31 U/L (14-36); Blood Urea Nitrogen 48 mg/dl (7-17); Calcium 8.8 mg/dl (8.4-10.2); Carbon Dioxide 25 mmol/L (22.0-30.0); Chloride 113 mmol/L (98-107); Chol/HDL Ratio 4.7 (1-3.5); Cholesterol 142 mg/dl (140-200); Estimated Glomerular Filt Rate 28 ml/min (>60); GFR (African American) 33 ML/MIN (>60); Globulin 1.9 g/dL (1.3-3.2); Glucose 85 mg/dl (74-100); HDL Cholesterol 30 mg/dl (40-60); Potassium 4.7 mmoL/L (3.5-5.1); Sodium 142 mmol/L (136-145); Total Protein,Serum 5.2 g/dl (6.3-8.2); Triglycerides 360 mg/dl (30-150); VLDL Cholesterol 72 mg/dL (0-40)
[2022-02-17 09:25] LABS: Hemoglobin A1C 8.3 % (4.0-6.0)
[2022-02-17 09:31] LABS: Bilirubin,Total < 0.1 mg/dl (0.2-1.3)
[2022-02-17 09:54] LABS: Thyroid Stimulating Hormone 5.17 uIU/mL (0.465-4.68)
[2022-02-19 01:56] LABS: Direct LDL Cholesterol 22 mg/dL (100-129)
== END ==
PROVIDERS: PCP Family Medicine; Visit Provider Internal Medicine Endocrinology, Diabetes & Metabolism
DX: E10.65 Type 1 diabetes mellitus with hyperglycemia (principal); Z79.4 Long term (current) use of insulin
CPT/HCPCS: 36415; 80053; 80061; 83036; 84443

== ENCOUNTER → 2022-05-07 10:14 | Outpatient (CLI) | payer MEDICARE, MEDICAID, SELFPAY ==
[2022-05-07 11:53] LABS: Iron 121 ug/dL (37-170)
[2022-05-07 12:04] LABS: Total Iron Binding Capacity 317 ug/dL (265-497)
[2022-05-07 12:19] LABS: Vitamin B12 > 1000 pg/mL (239-931)
[2022-05-07 12:29] LABS: Ferritin 117 ng/ml (11.1-264)
[2022-05-08 18:09] LABS: Haptoglobin 160 mg/dL (42-346)
[2022-05-10 09:26] LABS: Methylmalonic Acid 310 nmol/L (0-378)
== END ==
PROVIDERS: PCP Family Medicine; Visit Provider Internal Medicine Hematology & Oncology
DX: C91.10 Chronic lymphocytic leukemia of B-cell type not having achieved remission (principal)
CPT/HCPCS: 36415; 82131; 82607; 82728; 83010; 83540; 83550; 86880

== ENCOUNTER → 2022-07-22 12:09 | Outpatient (CLI) | payer MEDICARE, MEDICAID, SELFPAY ==
[2022-07-22 12:41] LABS: Basophils # 0.2 K/mm3 (0-0.2); Basophils % 0.9 % (0.1-2.0); Eosinophils # 0.3 K/mm3 (0.0-0.4); Eosinophils % 1.4 % (0.1-12.0); Hematocrit 25.9 % (37.0-47.0); Hemoglobin 8.5 g/dL (12.2-16.2); Lymphocytes # 17.9 K/mm3 (0.7-4.5); Lymphocytes % 77.3 % (10-50); Mean Corpuscular HGB Conc 32.7 g/dL (31.8-35.4); Mean Corpuscular Hemoglobin 34.6 pg (27.0-31.2); Mean Corpuscular Volume 105.8 fl (81-99); Mean Platelet Volume 8.8 fl (7.4-10.4); Monocytes # 0.3 K/mm3 (0.1-1.0); Monocytes % 1.3 % (1.7-9.3); Neutrophils # 4.4 K/mm3 (1.8-7.8); Platelet Count 175 K/mm3 (142-424); Red Blood Count 2.44 M/mm3 (4.20-5.40); White Blood Count 23.2 K/mm3 (4.8-10.8)
[2022-07-22 12:44] LABS: Red Cell Distribution Width 25.6 % (11.5-17.5)
[2022-07-22 12:46] LABS: MANUAL DIFFERENTIAL MANUAL DIFFERENTIAL (MANUAL DIFF)
[2022-07-22 12:57] LABS: Anisocytosis 1+; Eosinophils % 1 % (0-3); Hypochromasia 1+; Lymphocytes % 73 % (10-50); Macrocytosis 1+; Monocytes % 2 % (2-9); Neutrophils % 24 % (42-76); Ovalocytes 1+; Platelet Estimate Normal; Total Cells Counted 100
[2022-07-22 13:13] LABS: Albumin Level 3.6 g/dl (3.5-5.0); Anion Gap 8.9 mEq/L (5-15); Blood Urea Nitrogen 49 mg/dl (7-17); Calcium 9.1 mg/dl (8.4-10.2); Carbon Dioxide 24 mmol/L (22.0-30.0); Chloride 112 mmol/L (98-107); Estimated Glomerular Filt Rate 22 ml/min (>60); GFR (African American) 27 ML/MIN (>60); Glucose 153 mg/dl (74-100); Phosphorous 4.4 mg/dl (2.5-4.5); Potassium 4.9 mmoL/L (3.5-5.1); Sodium 140 mmol/L (136-145)
[2022-07-22 13:26] LABS: Intact Parathyroid Hormone 80.1 pg/mL (7.5-53.5)
[2022-07-22 13:27] LABS: 25-OH Vitamin D, Total 36.5 ng/mL (30-100)
== END ==
PROVIDERS: PCP Family Medicine; Visit Provider Internal Medicine Nephrology
DX: N18.4 Chronic kidney disease, stage 4 (severe) (principal); I10 Essential (primary) hypertension; N25.0 Renal osteodystrophy; E21.3 Hyperparathyroidism, unspecified; R80.9 Proteinuria, unspecified
CPT/HCPCS: 36415; 80069; 82306; 83970; 85007; 85025

== ENCOUNTER → 2022-08-06 10:53 | Outpatient (CLI) | payer MEDICARE, MEDICAID, SELFPAY ==
[2022-08-06 11:01] LABS: Microscopic, Urine URINE MICROSCOPIC (MICROSCOPIC)
[2022-08-06 11:39] LABS: Basophils # 0.1 K/mm3 (0-0.2); Basophils % 0.9 % (0.1-2.0); Eosinophils # 0.2 K/mm3 (0.0-0.4); Eosinophils % 1.6 % (0.1-12.0); Hematocrit 30.6 % (37.0-47.0); Hemoglobin 9.9 g/dL (12.2-16.2); Lymphocytes # 8.5 K/mm3 (0.7-4.5); Lymphocytes % 67.3 % (10-50); Mean Corpuscular HGB Conc 32.2 g/dL (31.8-35.4); Mean Corpuscular Hemoglobin 33.2 pg (27.0-31.2); Mean Platelet Volume 8.6 fl (7.4-10.4); Monocytes # 0.2 K/mm3 (0.1-1.0); Monocytes % 1.5 % (1.7-9.3); Neutrophils # 3.6 K/mm3 (1.8-7.8); Neutrophils % 28.7 % (37.0-80.0); Platelet Count 174 K/mm3 (142-424); Red Blood Count 2.97 M/mm3 (4.20-5.40); Red Cell Distribution Width 24.5 % (11.5-17.5); White Blood Count 12.6 K/mm3 (4.8-10.8)
[2022-08-06 11:44] LABS: MANUAL DIFFERENTIAL MANUAL DIFFERENTIAL (MANUAL DIFF)
[2022-08-06 12:09] LABS: Appearance,Urine CLEAR (Clear); Bilirubin,Urine Negative (Negative); Blood, Urine 3+ (Negative); Color,Urine YELLOW (Yellow); Glucose,Urine (UA) Negative (Negative); Ketones,Urine Negative (Negative); Leukocyte Esterase,Urine TRACE (Negative); Nitrate,Urine Negative (Negative); Protein,Urine 2+ (Negative); Urobilinogen,Urine 0.2 EU/dl (0.2)
[2022-08-06 12:33] LABS: Creatinine,Urine Random 93 mg/dL (Not Estab.)
[2022-08-06 12:34] LABS: Albumin Level 3.5 g/dl (3.5-5.0); Chloride 111 mmol/L (98-107); Potassium 5.4 mmoL/L (3.5-5.1); Sodium 140 mmol/L (136-145)
[2022-08-06 12:36] LABS: Blood Urea Nitrogen 62 mg/dl (7-17); Estimated Glomerular Filt Rate 24 ml/min (>60); GFR (African American) 30 ML/MIN (>60)
[2022-08-06 12:37] LABS: Anion Gap 13.4 mEq/L (5-15); Calcium 8.2 mg/dl (8.4-10.2); Carbon Dioxide 21 mmol/L (22.0-30.0); Glucose 191 mg/dl (74-100); Phosphorous 4.7 mg/dl (2.5-4.5)
[2022-08-06 13:06] LABS: Bacteria,Urine 1+ /lpf; RBC,Urine 20-50 #/hpf (0-3)
[2022-08-06 19:30] LABS: Eosinophils % 2 % (0-3); Lymphocytes % 68 % (10-50); Monocytes % 1 % (2-9); Neutrophils % 26 % (42-76); Total Cells Counted 100
[2022-08-06 19:31] LABS: Anisocytosis 2+; Macrocytosis 1+; Microcytosis 1+; Platelet Estimate Normal
[2022-08-06 19:32] LABS: Poikilocytosis 2+; Polychromasia 1+; Schistocytes 1+; Stomatocytes 1+
== END ==
PROVIDERS: PCP Family Medicine; Visit Provider Internal Medicine Nephrology
DX: N18.4 Chronic kidney disease, stage 4 (severe) (principal); B96.29 Other Escherichia coli [E. coli] as the cause of diseases classified elsewhere; R82.90 Unspecified abnormal findings in urine
CPT/HCPCS: 36415; 80069; 81001; 82570; 84155; 85007; 85025; 87086; 87088; 87186

== ENCOUNTER → 2022-09-02 10:42 | Outpatient (CLI) | payer MEDICARE, MEDICAID, SELFPAY ==
[2022-09-02 11:34] LABS: Basophils # 0.1 K/mm3 (0-0.2); Basophils % 1.6 % (0.1-2.0); Eosinophils # 0.1 K/mm3 (0.0-0.4); Hematocrit 29.5 % (37.0-47.0); Hemoglobin 9.1 g/dL (12.2-16.2); Lymphocytes # 3.8 K/mm3 (0.7-4.5); Lymphocytes % 67.4 % (10-50); Mean Corpuscular HGB Conc 30.8 g/dL (31.8-35.4); Mean Corpuscular Hemoglobin 33.3 pg (27.0-31.2); Mean Corpuscular Volume 108.3 fl (81-99); Mean Platelet Volume 8.8 fl (7.4-10.4); Monocytes # 0.2 K/mm3 (0.1-1.0); Monocytes % 4.1 % (1.7-9.3); Neutrophils # 1.4 K/mm3 (1.8-7.8); Neutrophils % 25.8 % (37.0-80.0); Platelet Count 173 K/mm3 (142-424); Red Blood Count 2.73 M/mm3 (4.20-5.40); Red Cell Distribution Width 21.7 % (11.5-17.5); White Blood Count 5.6 K/mm3 (4.8-10.8)
[2022-09-02 11:36] LABS: MANUAL DIFFERENTIAL MANUAL DIFFERENTIAL (MANUAL DIFF)
[2022-09-02 13:59] LABS: Lymphocytes % 64 % (10-50); Monocytes % 6 % (2-9); Neutrophils % 30 % (42-76); Total Cells Counted 50
[2022-09-02 14:01] LABS: Anisocytosis 1+; Macrocytosis 2+; Platelet Estimate Normal
== END ==
PROVIDERS: PCP Family Medicine; Visit Provider Internal Medicine Hematology & Oncology
DX: C91.10 Chronic lymphocytic leukemia of B-cell type not having achieved remission (principal)
CPT/HCPCS: 36415; 85007; 85025

== ENCOUNTER → 2023-02-19 10:25 | Outpatient (CLI) | payer MEDICARE, MEDICAID, SELFPAY ==
[2023-02-19 10:55] LABS: Basophils % 0.9 % (0.1-2.0); Eosinophils # 0.1 K/mm3 (0.0-0.4); Eosinophils % 2.9 % (0.1-12.0); Hematocrit 37.4 % (37.0-47.0); Hemoglobin 12.5 g/dL (12.2-16.2); Lymphocytes # 1.2 K/mm3 (0.7-4.5); Lymphocytes % 24.2 % (10-50); Mean Corpuscular HGB Conc 33.3 g/dL (31.8-35.4); Mean Corpuscular Hemoglobin 31.6 pg (27.0-31.2); Mean Corpuscular Volume 95.1 fl (81-99); Mean Platelet Volume 9.9 fl (7.4-10.4); Monocytes # 0.3 K/mm3 (0.1-1.0); Monocytes % 5.2 % (1.7-9.3); Neutrophils # 3.3 K/mm3 (1.8-7.8); Neutrophils % 66.9 % (37.0-80.0); Platelet Count 136 K/mm3 (142-424); Red Blood Count 3.94 M/mm3 (4.20-5.40); Red Cell Distribution Width 14.7 % (11.5-17.5); White Blood Count 4.9 K/mm3 (4.8-10.8)
[2023-02-19 11:26] LABS: Albumin Level 3.2 g/dl (3.5-5.0); Anion Gap 13.5 mEq/L (5-15); Blood Urea Nitrogen 55 mg/dl (7-17); Calcium 8.2 mg/dl (8.4-10.2); Carbon Dioxide 22 mmol/L (22.0-30.0); Chloride 108 mmol/L (98-107); Estimated Glomerular Filt Rate 23 ml/min (>60); GFR (African American) 28 ML/MIN (>60); Glucose 214 mg/dl (74-100); Phosphorous 4.3 mg/dl (2.5-4.5); Potassium 4.5 mmoL/L (3.5-5.1); Sodium 139 mmol/L (136-145)
[2023-02-19 11:38] LABS: Creatinine,Urine Random 104 mg/dL (Not Estab.); Intact Parathyroid Hormone 204.1 pg/mL (7.5-53.5)
[2023-02-19 11:43] LABS: 25-OH Vitamin D, Total 36.7 ng/mL (30-100)
[2023-02-19 19:27] LABS: Microalbumin/Creatinine Ratio 1169.3
== END ==
PROVIDERS: PCP Family Medicine; Visit Provider Internal Medicine Nephrology
DX: N18.4 Chronic kidney disease, stage 4 (severe) (principal); N25.0 Renal osteodystrophy; I10 Essential (primary) hypertension; R80.1 Persistent proteinuria, unspecified
CPT/HCPCS: 36415; 80069; 82043; 82306; 82570; 83970; 85025

== ENCOUNTER 2023-05-18 13:00 | Outpatient (RCR) | payer MEDICARE, MEDICAID, SELFPAY | END 2023-06-23 14:08 | disposition home or self-care (01) | LOC: PT 13:00 | PROVIDERS: PCP Family Medicine; Visit Provider Family Medicine | DX: M54.32 Sciatica, left side (principal) | CPT/HCPCS: 97010; 97014; 97110; 97140; 97163; G0283 ==

== ENCOUNTER 2023-07-23 08:20 | Outpatient (CLI) | payer MEDICARE, MEDICAID, SELFPAY ==
[2023-07-23 09:09] LABS: Creatinine,Urine Random 125 mg/dL (Not Estab.)
[2023-07-23 09:42] LABS: Alanine Aminotransferase 36 U/L (12-78); Albumin Level 3.1 g/dl (3.5-5.0); Albumin/Globulin Ratio 1.7 (1.1-1.8); Alkaline Phosphatase 63 U/L (38-126); Anion Gap 9.2 mEq/L (5-15); Aspartate Amino Transferase 37 U/L (14-36); Bilirubin,Total 0.5 mg/dl (0.2-1.3); Blood Urea Nitrogen 42 mg/dl (7-17); Calcium 8.3 mg/dl (8.4-10.2); Carbon Dioxide 25 mmol/L (22.0-30.0); Chloride 112 mmol/L (98-107); Chol/HDL Ratio 3.4 (1-3.5); Cholesterol 122 mg/dl (140-200); Estimated Glomerular Filt Rate 23 ml/min (>60); GFR (African American) 28 ML/MIN (>60); Globulin 1.8 g/dL (1.3-3.2); Glucose 132 mg/dl (74-100); HDL Cholesterol 36 mg/dl (40-60); Potassium 4.2 mmoL/L (3.5-5.1); Sodium 142 mmol/L (136-145); Total Protein,Serum 4.9 g/dl (6.3-8.2); Triglycerides 170 mg/dl (30-150); VLDL Cholesterol 34 mg/dL (0-40)
[2023-07-23 09:53] LABS: Direct LDL Cholesterol 51.55 mg/dL (100-129)
[2023-07-23 11:29] LABS: Microalbumin/Creatinine Ratio 1841.1
== END 2023-07-23 23:59 ==
LOC: LAB 08:21
PROVIDERS: PCP Family Medicine; Visit Provider Internal Medicine Endocrinology, Diabetes & Metabolism
DX: E10.65 Type 1 diabetes mellitus with hyperglycemia (principal)
CPT/HCPCS: 36415; 80053; 80061; 82043; 82570; 84443

== ENCOUNTER 2023-08-26 10:52 | Outpatient (CLI) | payer MEDICARE, MEDICAID, SELFPAY ==
[2023-08-26 11:02] LABS: Microscopic, Urine URINE MICROSCOPIC (MICROSCOPIC)
[2023-08-26 11:23] LABS: Hematocrit 36.5 % (37.0-47.0); Hemoglobin 11.8 g/dL (12.2-16.2); Mean Corpuscular HGB Conc 32.2 g/dL (31.8-35.4); Mean Corpuscular Hemoglobin 33.4 pg (27.0-31.2); Mean Corpuscular Volume 103.6 fl (81-99); Platelet Count 171 K/mm3 (142-424); Red Blood Count 3.52 M/mm3 (4.20-5.40); Red Cell Distribution Width 14.3 % (11.5-17.5); White Blood Count 5.9 K/mm3 (4.8-10.8)
[2023-08-26 11:27] LABS: Appearance,Urine CLEAR (Clear); Bilirubin,Urine Negative (Negative); Blood, Urine Negative (Negative); Color,Urine YELLOW (Yellow); Glucose,Urine (UA) Negative (Negative); Ketones,Urine Negative (Negative); Leukocyte Esterase,Urine TRACE (Negative); Nitrate,Urine Negative (Negative); Protein,Urine 2+ (Negative); Specific Gravity, Urine >= 1.030 (1.005-1.030); Urobilinogen,Urine 0.2 EU/dl (0.2)
[2023-08-26 11:44] LABS: Creatinine,Urine Random 113 mg/dL (Not Estab.)
[2023-08-26 11:56] LABS: Chloride 110 mmol/L (98-107); Potassium 4.3 mmoL/L (3.5-5.1); Sodium 135 mmol/L (136-145)
[2023-08-26 11:58] LABS: Blood Urea Nitrogen 59 mg/dl (7-17); Estimated Glomerular Filt Rate 20 ml/min (>60); GFR (African American) 24 ML/MIN (>60)
[2023-08-26 11:59] LABS: Anion Gap 4.3 mEq/L (5-15); Calcium 8.4 mg/dl (8.4-10.2); Carbon Dioxide 25 mmol/L (22.0-30.0); Glucose 142 mg/dl (74-100); Phosphorous 5.4 mg/dl (2.5-4.5)
[2023-08-26 13:55] LABS: Bacteria,Urine 1+ /lpf
== END 2023-08-26 23:59 ==
PROVIDERS: PCP Family Medicine; Visit Provider Internal Medicine Nephrology
DX: N18.4 Chronic kidney disease, stage 4 (severe) (principal); R82.90 Unspecified abnormal findings in urine; B96.89 Other specified bacterial agents as the cause of diseases classified elsewhere
CPT/HCPCS: 36415; 80069; 81001; 82570; 84155; 85014; 85018; 85048; 85049; 87086

== ENCOUNTER 2023-08-30 16:08 | Outpatient (POV) | payer MEDICARE, MEDICAID, SELFPAY | END 2023-08-30 23:59 | disposition home or self-care (01) | LOC: SC 16:09 | PROVIDERS: Visit Provider Internal Medicine Nephrology | DX: Z00.00 Encounter for general adult medical examination without abnormal findings (principal) ==

== ENCOUNTER 2023-10-27 10:20 | Outpatient (CLI) | payer MEDICARE, MEDICAID, SELFPAY ==
[2023-10-27 10:27] LABS: Microscopic, Urine URINE MICROSCOPIC (MICROSCOPIC)
[2023-10-27 10:52] LABS: Hematocrit 35.4 % (37.0-47.0); Hemoglobin 11.3 g/dL (12.2-16.2); Mean Corpuscular HGB Conc 31.9 g/dL (31.8-35.4); Mean Corpuscular Hemoglobin 31.8 pg (27.0-31.2); Mean Corpuscular Volume 99.7 fl (81-99); Platelet Count 143 K/mm3 (142-424); Red Blood Count 3.55 M/mm3 (4.20-5.40); Red Cell Distribution Width 15.1 % (11.5-17.5); White Blood Count 8.1 K/mm3 (4.8-10.8)
[2023-10-27 10:56] LABS: Appearance,Urine CLEAR (Clear); Bilirubin,Urine Negative (Negative); Blood, Urine Negative (Negative); Color,Urine YELLOW (Yellow); Glucose,Urine (UA) Negative (Negative); Ketones,Urine Negative (Negative); Leukocyte Esterase,Urine Negative (Negative); Nitrate,Urine Negative (Negative); Protein,Urine 2+ (Negative); Specific Gravity, Urine >= 1.030 (1.005-1.030); Urobilinogen,Urine 0.2 EU/dl (0.2)
[2023-10-27 11:10] LABS: Creatinine,Urine Random 122 mg/dL (Not Estab.)
[2023-10-27 11:16] LABS: Bacteria,Urine Trace /lpf
[2023-10-27 12:05] LABS: Intact Parathyroid Hormone 139.3 pg/mL (7.5-53.5)
[2023-10-27 12:51] LABS: Albumin Level 3.2 g/dl (3.5-5.0); Anion Gap 12.2 mEq/L (5-15); Blood Urea Nitrogen 48 mg/dl (7-17); Calcium 8.4 mg/dl (8.4-10.2); Carbon Dioxide 24 mmol/L (22.0-30.0); Chloride 110 mmol/L (98-107); Estimated Glomerular Filt Rate 21 ml/min (>60); GFR (African American) 25 ML/MIN (>60); Glucose 71 mg/dl (74-100); Phosphorous 4.4 mg/dl (2.5-4.5); Potassium 4.2 mmoL/L (3.5-5.1); Sodium 142 mmol/L (136-145)
== END 2023-10-27 23:59 | disposition home or self-care (01) ==
LOC: LAB 10:21
PROVIDERS: PCP Family Medicine; Visit Provider Internal Medicine Nephrology
DX: N18.4 Chronic kidney disease, stage 4 (severe) (principal)
CPT/HCPCS: 36415; 80069; 81001; 82306; 82570; 83970; 84156; 85014; 85018; 85048; 85049

== ENCOUNTER 2023-11-01 15:32 | Outpatient (POV) | payer MEDICARE, MEDICAID, SELFPAY | END 2023-11-01 23:59 | disposition home or self-care (01) | LOC: SC 15:33 | PROVIDERS: Visit Provider Internal Medicine Nephrology | DX: Z00.00 Encounter for general adult medical examination without abnormal findings (principal) ==

== ENCOUNTER 2024-01-17 10:09 | Outpatient (CLI) | payer MEDICARE, MEDICAID, SELFPAY ==
[2024-01-17 10:20] LABS: Microscopic, Urine URINE MICROSCOPIC (MICROSCOPIC)
[2024-01-17 10:51] LABS: Appearance,Urine SL CLOUDY (Clear); Bilirubin,Urine Negative (Negative); Blood, Urine Negative (Negative); Color,Urine YELLOW (Yellow); Glucose,Urine (UA) Negative (Negative); Ketones,Urine TRACE (Negative); Leukocyte Esterase,Urine 1+ (Negative); Nitrate,Urine POSITIVE (Negative); Protein,Urine 3+ (Negative); Specific Gravity, Urine >= 1.030 (1.005-1.030); Urobilinogen,Urine 0.2 EU/dl (0.2)
[2024-01-17 11:03] LABS: Hematocrit 33.8 % (37.0-47.0); Hemoglobin 10.7 g/dL (12.2-16.2); Mean Corpuscular HGB Conc 31.7 g/dL (31.8-35.4); Mean Corpuscular Volume 100.9 fl (81-99); Platelet Count 156 K/mm3 (142-424); Red Blood Count 3.35 M/mm3 (4.20-5.40); Red Cell Distribution Width 15.6 % (11.5-17.5); White Blood Count 5.3 K/mm3 (4.8-10.8)
[2024-01-17 11:27] LABS: Anion Gap 10.4 mEq/L (5-15); Blood Urea Nitrogen 55 mg/dl (7-17); Calcium 8.4 mg/dl (8.4-10.2); Carbon Dioxide 22 mmol/L (22.0-30.0); Chloride 112 mmol/L (98-107); Estimated Glomerular Filt Rate 17 ml/min (>60); GFR (African American) 21 ML/MIN (>60); Glucose 166 mg/dl (74-100); Phosphorous 4.3 mg/dl (2.5-4.5); Potassium 4.4 mmoL/L (3.5-5.1); Sodium 140 mmol/L (136-145)
[2024-01-17 11:36] LABS: WBC,Urine 20-50 #/hpf (0-3)
[2024-01-17 11:37] LABS: Amorphous Sediment,Urine 1+ /lpf; Bacteria,Urine 4+ /lpf
[2024-01-17 11:39] LABS: Creatinine,Urine Random 166 mg/dL (Not Estab.)
== END 2024-01-17 23:59 | disposition home or self-care (01) ==
LOC: LAB 10:10
PROVIDERS: PCP Family Medicine; Visit Provider Internal Medicine Nephrology
DX: N18.4 Chronic kidney disease, stage 4 (severe) (principal); N39.0 Urinary tract infection, site not specified; B96.20 Unspecified Escherichia coli [E. coli] as the cause of diseases classified elsewhere
CPT/HCPCS: 36415; 80069; 81001; 82570; 84156; 85014; 85018; 85048; 85049; 87086; 87088; 87186

== ENCOUNTER 2024-01-18 13:00 | Outpatient (RCR) | payer MEDICARE, MEDICAID, SELFPAY | END 2024-02-08 14:50 | disposition home or self-care (01) | LOC: PT 13:00 | PROVIDERS: Visit Provider Podiatrist Foot & Ankle Surgery | DX: M79.672 Pain in left foot (principal); M25.675 Stiffness of left foot, not elsewhere classified | CPT/HCPCS: 97014; 97110; 97140; 97163; 97164; 97530; G0283 ==

== ENCOUNTER 2024-01-21 08:27 | Outpatient (POV) | payer MEDICARE, MEDICAID, SELFPAY | END 2024-01-21 23:59 | disposition home or self-care (01) | LOC: SC 08:28 | PROVIDERS: Visit Provider Internal Medicine Nephrology | DX: Z00.00 Encounter for general adult medical examination without abnormal findings (principal) ==

== ENCOUNTER 2025-03-29 08:20 | Outpatient (CLI) | payer MEDICARE, MEDICAID, SELFPAY ==
--- NOTE | 2025-03-29 | US_ITS ---
PROCEDURE: US TRANSVAGINAL CLINICAL INDICATION: POST-MENAPAUSEL COMPARISON: No exams were available for comparison FINDINGS: Transvaginal sonographic images of the pelvis were obtained. UTERUS: 8.4cm x 4.1cm retroverted and axial with a combined endometrial thickness of 22.4mm. There is a hyperechoic area that appears like endometrium at the fundus with the uterus measuring up to 22 mm in thickness. There is a fibroid measuring 3.7 cm x 3.9 cm x 3.9 cm. LEFT OVARY: Not visualized RIGHT OVARY: Not visualized There is a small amount of fluid in the right adnexa. Both ovaries are not visualized and likely atrophic. There is a moderate amount of fluid in the cul-de-sac. IMPRESSION: 1. The uterus is retroverted and axial making it difficult to see the endometrium. 2. There is an area that appears to be endometrium measuring up to 22 mm in thickness and would suggest a gynecology consult and endometrial sampling given the patient's age. 3. There is a 3.9 cm fibroid within the uterus. 4. The ovaries were not visualized and are likely atrophic. 5. There is a small amount of free fluid in the right adnexa and a moderate amount of free fluid in the cul-de-sac. Dictated by: Mickey Cordova MD 03/30/2025 05:25 Mickey Cordova MD in OV 03/30/2025 05:25
== END 2025-03-29 23:59 | disposition home or self-care (01) ==
LOC: RAD 08:21
PROVIDERS: PCP Family Medicine; Visit Provider Family Medicine
DX: D25.9 Leiomyoma of uterus, unspecified (principal); N85.4 Malposition of uterus; R93.89 Abnormal findings on diagnostic imaging of other specified body structures
CPT/HCPCS: 76830

== ENCOUNTER 2025-05-11 17:19 | Emergency (ER) | payer MEDICARE, MEDICAID, SELFPAY ==
--- OUTSIDE RECORDS SUMMARY | 2024-10-19 08:30 | XMS_ITS ---
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 :1950 A ge:74 Y S ex:Female Date:10/19/2024 Address:[address] [place] [address] Pcp:Kinza Bennett MD Subjective: * Chief Complaints: * 1 . NEPH FOLLOW UP. * Medical History: Objective: * Vitals: Assessment: Plan: * Treatment: * * Electronic signature of ANUSHA SANCHEZ MD on 05/11/2025 at 05:31 PM EST Sign off status: Pending * Provider: Laurie SANCHEZ M.D., F.A.C.P. Date: 0 10/19/2024 Generated for Khari yun/Queta/Corysmitting on: 1 07/11/2024 05:31 PM EST
--- OUTSIDE RECORDS SUMMARY | 2025-03-15 03:00 | XMS_ITS ---
Author Organization [facility] [place] [address] Care Team Providers Care Anesthesiology Technologist Name Role Phone Kinza Bennett MD Primary Care Provider MAZIN Mckeon Unavailable [phone] REASON FOR VISIT NEPH 2 MO FU- NEEDS WELLNESS Encounters Encounter Location Date Provider Diagnosis [facility] [place] [address] [address] 03/15/2025 MAZIN SANCHEZ Plan Of Treatment Next Appt Details Provider Name:MAZIN RAPP, 05/16/2025 02:15:00 PM, [address], [place], [address], Progress Notes * BELINDA BORRERONEDOB:1950 (75 yo F)Acc No.[id number]:03/15/2025 Patient: Salina SHAHNICHELLE Provider: Laurie SANCHEZ M.D., F.A.C.P. :1950 A ge:75 Y S ex:Female Date:03/15/2025 Address:[address] [place], [place] [id number] Pcp:Kinza Bennett MD Subjective: * Chief Complaints: * 1 . NEPH 2 MO FU- NEEDS WELLNESS. * Medical History: Objective: * Vitals: Assessment: Plan: * Treatment: * * Electronic signature of ANUSHA SANCHEZ MD on 05/11/2025 at 05:31 PM EST Sign off status: Pending * Provider: Laurie SANCHEZ M.D., F.A.C.P. Date: 0 03/15/2025 Generated for Khari yun/Queta/Kings on: 1 07/11/2024 05:31 PM EST
--- OUTSIDE RECORDS SUMMARY | 2025-03-15 13:08 | XMS_ITS | Continuity of Care Document ---
Author Organization [facility] Phone Care Team Providers Care Electroencephalograph Technician Name Role Phone RUPINDER SANDERS Primary Care MARYJANE MAYORGA Unavailable CORIN HUMPHREYS Surgeon MARYJANE MAYORGA Admitting MARYJANE MAYORGA Primary Attending ALLERGIES AND ADVERSE REACTIONS ALLERGIES AND ADVERSE REACTIONS Code System Allergy Substance Adverse Reaction Date Reaction (Severity) Comment Status Reported By Updated By No Known Allergies [id number] on December 08, 2024 1:23:09 PM [facility] FAMILY HISTORY RELATION: Father Status: Cause of : Unknown Age at : Unknown SNOMED-CT Diagnosis Age At Onset Information not available RELATION: Mother Status: Cause of : Unknown Age at : Unknown SNOMED-CT Diagnosis Age At Onset [id number] Chronic obstructive pulmonary di sease RELATION: Brother Status: LIVING SNOMED-CT Diagnosis Age At Onset [id number] CVA (cerebrovascular accident) d uring surgery RESULTS Patient: GISSELL STEWARD Date of : [birth year] 50 9 LABORATORY RESULTS Information is not available LABORATORY NARRATIVE RESULTS Information is not available RADIOLOGY RESULTS ORDER 100: TUNNEL CATH REMOV AL IN IR (LOINC: 17250-4) ORDER DATE: March 13, 2025 12:20:00 PM UT PERFORMING LAB: [address] [id number] Final Result Date: March 13, 2025 8:20:54 PM [facility] (TECH: [id number]) [address] [address] (Phone) IMAGING REPORT Name: NICHELLE BORRERO : 1950 Age: 75 Years Patient Type: Outpatient Sex: F Exam Description: TUNNEL CATH REMOVAL IN IR Exam Reason: Z97.8 presence of other specified devices Order Date/Time: 03/13/2025 10:38:38 AM Dictated By: Corin Humphreys MD Ordering Physician: MARYJANE MAYORGA Attending Physician: MARYJANE MAYORGA PROCEDURE: REMOVAL OF TUNNELED CATHETER ATTENDING PHYSICIAN: Dr. Corin Humphreys MD PHYSICIAN PSYCHIATRIC CLINICIAN: Pedro Luis Valencia PA-C Procedure was performed by Pedro Luis Valencia PA-C under the supervision of Dr. Corin Humphreys MD. INDICATION: Functioning graft, dialysis catheter no longer needed COMPLICATIONS: None PROCEDURE: The patient was identified. A formal time out was performed. The existing catheter was identified and the overlying bandages were removed. The sutures securing the catheter to the skin were no longer within the skin. The catheter and skin were cleaned and sterilized with ChloraPrep applicator. The skin and tunneled site was anesthetized with 1% lidocaine to the level of the cuff. The cuff and catheter were removed without complications via blunt dissection using curved Neetu forceps. A sterile dressing was applied. Hemostasis was obtained with direct pressure at the insertion site in the right IJ above the clavicle. PAGE 1 OF 2 Name: NICHELLE BORRERO : 1950 Age: 75 Years Patient Type: Outpatient Sex: F Exam Description: TUNNEL CATH REMOVAL IN IR Exam Reason: Z97.8 presence of other specified devices Order Date/Time: 03/13/2025 10:38:38 AM The patient tolerated the procedure well. There were no immediate postprocedural complications. IMPRESSION: Successful removal of existing tunneled right jugular venous dialysis catheter. Reviewed, Interpreted and Dictated by Corin Humphreys MD Transcribed by BARBI Avery Authenticated and Electronically signed by: Corin Humphreys MD 03/13/2025 04:20 PM EDT PAGE 2 OF 2 PATHOLOGY NARRATIVE RESULTS Information is not available MICROBIOLOGY RESULTS No Micro Labs/Results Exist for Patient BLOOD ADMIN RESULTS Information is not available MEDICATIONS HOME MEDICATIONS Status RXNORM NDC Medication Dose Route Frequency Dates Comments Reported By Updated By Drug Treatment Unknown DISCHARGE MEDICATIONS Status RXNORM NDC Medication Dose Route Frequency Dates Dis pense Data Comments Physician Updated By No Discharge Medication Info rmation Available INPATIENT MEDICATIONS Status RXNORM NDC Medication Dose Route Frequency Rat e Quantity Dates Indication Dispense Data Comments [facility]ician [facility] [id number] lidocaine (XYLOCAINE) 1% SOLN 20.0 ML IV PUSH ONE TIME ONLY Start: 2024 11:28: 00 AM [facility] End: 2024 11:28: 00 AM [facility] TIERRA WESLEY DO INTERFAC ED on 2024 11:27:00 AM [facility] SOCIAL HISTORY SOCIAL HISTORY - Smoking Status SNOMED-CT Social History Element Description Effective Dates Offered Cessation Comment Updated By [id number] Historical Tobacco smoking status Never Smoked [id number] on December 08, 2024 1:37:33 PM [facility] SOCIAL HISTORY - Gender Sex: Female SOCIAL HISTORY - Status : status i nformation is not available Intention in Next Year: intention information is not available SOCIAL HISTORY - Assessments Code System Description Status Date Value of Assessment Updated By Comment Assessment Information is no t available SOCIAL HISTORY - [place] Affiliation [place] information is not av ailable SOCIAL HISTORY - Legal Sex Legal Sex information is not available SOCIAL HISTORY - Sexual Behavior Sexual Orientation Gender Identity SNOMED-CT Description SNO MED -CT Description Activity Level No of Partners Partner Type UpdatedBy Information is not available SOCIAL HISTORY - Occupation Occupation information is no t available VITAL SIGNS PATIENT VITAL SIGNS This section displays the mo st recent value for each vital sign as of March 15, 2025 6:08:46 PM UTC Loinc Code Vital Sign Activity Date Result Updated By [id number] Diastolic blood pressure Septemb er 2024 2:12:00 PM UTC 73.0 mm[Hg] 8867-4 Heart rate March 13 2:12:00 PM UTC 87 /min 57366-7 Oxygen saturation in Arterial blood by Pulse oximetry March 13, 2025 2:12:00 PM UTC 99.0 % 9279-1 Respiratory rate March 13 2:12:00 PM UTC 18 /min 8480-6 [facility]stolic [facility] 2:12:00 PM UTC 171.0 mm[Hg] PEDIATRIC GROWTH CHART - VITAL SIGNS This section displays Head C ircumference Percentile, Weight for Length Percentile and BMI Percentile Loinc Code Pediatric Measure Age (Months) Result Updat ed By No Pediatric Growth Chart Pe rcentile Information Available. HEALTH CONCERNS Problems Concern Status Health Concern problem infor mation not available. Smoking Status Status Years Used Consumed packs p er day Health Concern smoking histo ry information not available. Family History Concern Status Health Concern family histor y information not available. MEDICAL EQUIPMENT MEDICAL EQUIPMENT Device Status Quantity Dates Procedure Comments Updated By [facility] CHRONIC CATHETER KIT GRACIELA: Assigning Authority: FDA ACTIVE 1 Implanted: August 25, 2024 INSERTION DIALYSIS CATHETER [id number] on August 25, 2024 5:42:26 PM UTC [place] [employer] Vascular Graft GRACIELA: Assigning Authority: FDA ACTIVE 1 Implanted: February 05, 2025 [id number] on February 05, 2025 7:06:44 PM [place] ENCOUNTERS ENCOUNTER INFORMATION Reason for Visit TUNNELED CENTRAL GABRIELLE OUS Admission March 13, 2025 12:08:00 PM U TC [address] [address] Discharge March 13, 2025 4:08:00 PM UT C DISCHARGED TO HOME OR SELF CARE ENCOUNTER DIAGNOSES Notes information is not demario ilable. Code System Diagnosis Onset Date Diagnosis information is not available. ABSTRACT DIAGNOSES Code System Diagnosis Updated By Abatement Date Z97.8 ICD10 PRESENCE OF OTHE R SPECIFIED DEVICES [id number] on March 15, 2025 6:08:11 PM UT Z97.8 ICD10 PRESENCE OF OTHE R SPECIFIED DEVICES [id number] on March 15, 2025 6:08:11 PM UT CARE TEAM Care Electroencephalograph Technician Role RUPINDER SANDERS Primary Care MARYJANE MAYORGA Referring CORIN HUMPHREYS Surgeon MARYJANE MAYORGA Admitting MARYJANE MAYORGA Primary Attending CARE TEAM CARE field crop harvest contractor Role on Team Location Telecom Status Start Date End Dion e Updated By JULIANN COOMBS MD Surgeon normal March 13, 2025 12:08:00 PM UT March 13, 2025 4:08:00 PM UT [id number] on March 15, 2025 6:08:18 PM UT MARILYN Tesfaye MD PCP normal March 08, 2025 4:10:14 PM UT March 13, 2025 4:00:00 AM UT [id number] on March 15, 2025 6:08:18 PM UT TIERRA WESLEY DO Referring normal March 08, 2025 4:10:14 PM UT March 13, 2025 4:00:00 AM UT [id number] on March 15, 2025 6:08:18 PM [facility] TIERRA WESLEY DO Attending normal March 08, 2025 4:10:14 PM UT March 13, 2025 4:00:00 AM UT [id number] on March 15, 2025 6:08:18 PM [facility] TIERRA WESLEY DO Admitting normal March 08, 2025 4:10:14 PM [facility] March 13, 2025 4:00:00 AM UT [id number] on March 15, 2025 6:08:18 PM [facility]
--- OUTSIDE RECORDS SUMMARY | 2025-05-03 03:00 | XMS_ITS ---
Author Organization [facility] [place] [address] Care Team Providers Care Alarm Signal Operator Name Role Phone Kinza Bennett MD Primary Care Provider MAZIN Mckeon Unavailable [phone] Razia Bray [phone] REASON FOR VISIT NEPH FOLLOW UP Encounters Encounter Location Date Provider Diagnosis [facility] [place] [address] [place] [address] 05/03/2025 Razia Bray Plan Of Treatment Next Appt Details Provider Name:MAZIN RAPP, 05/16/2025 02:15:00 PM, [address], [place], [address], Progress Notes * BELINDA BORRERONEDOB:1950 (75 yo F)Acc No.[id number]:05/03/2025 Patient: Salina VELOZNICHELLE MYRES Provider: Prashanth Bray :1950 A ge:75 Y S ex:Female Date:05/03/2025 Address:[address] [place], [place] [id number] Pcp:Kinza Bennett MD Subjective: * Chief Complaints: * 1 . NEPH FOLLOW UP. * Medical History: Objective: * Vitals: Assessment: Plan: * Treatment: * * Electronic signature of DEANN Proctor on 05/11/2025 at 05:30 PM EST Sign off status: Pending * Provider: Prashanth Bray Date: 07/03/2024 Generated for Khari Haney/Kings on: 07/11/2024 05:30 PM EST
--- OUTSIDE RECORDS SUMMARY | 2025-05-11 17:31 | XMS_ITS | Encounter Summary ---
Author Organization Healthcare Address [address] [place] [address] Care Team Providers Care Skin Care Consultant Name Role Phone Kinza Bennett MD Primary Care Provider [phone] Encounter Details Date Type Department Care Team (Late st Contact Info) Description 09/05/2024 Lab Requisition [facility] Lab [address] [place] [address] Marilu Doe PA [address] [place], [place] [id number] Encounter for general adult medical examination without abnormal findings Social History Tobacco Use Types Packs/Day Years Used Date Smoking Tobacco: Never Passive Smoke Exposure: Never Smokeless Tobacco: Never Alcohol Use Standard Drinks/Week Comments Never 0 (1 standard drink = 0.6 oz pur e alcohol) PHQ-2 Answer Date Recorded Patient Health Questionnaire-2 Score 0 11/01/2023 Comments Unknown Sex and Gender Information Value Date Recorded Sex Assigned at Not on file Legal Sex Female 8:12 PM EDT Gender Identity Not on file Sexual Orientation Not on file documented as of this encounter Plan of Treatment Not on file documented as of this encounter Procedures Procedure Name Priority Date/Time Associated Diagnosis Comments TOTAL PROTEIN, PLEURAL FLUID Routine 09/05/2024 5:01 PM EDT Encounter for general adult medical examination without abnormal findings LACTATE DEHYDROGENASE, PLEURAL FLUID Routine 09/05/2024 5:01 PM EDT Encounter for general adult medical examination without abnormal findings GLUCOSE, PLEURAL FLUID Routine 09/05/2024 5:01 PM EDT Encounter for general adult medical examination without abnormal findings documented in this encounter Results * Total Protein, Pleural Fluid (09/05/2024 5:01 PM EDT) Total Protein, Fluid 1.2 g/dL 09/05/2024 10:12 PM EDT [facility] Pleural Fluid 09/05/2024 5:0 1 PM EDT 09/05/2024 7:55 PM EDT Narrative [facility] - 09/05/2024 10:12 PM EDT This test was developed and its performance characteristics determined by [facility]. The U.S. Food and Drug Administration has not approved or cleared this test. However, FDA clearance or approval is not currently required for clinical use. The results are not intended to be used as the sole means for clinical diagnosis or patient management decisions. us Marilu [facility] BODY FLUIDS AND STOOLS O RDERABLES Final Result [facility] [address] [place] [address] * Lactate Dehydrogenase, Pleural Fluid (09/05/2024 5:01 PM EDT) LDH, Fluid 224 U/L 09/05/2024 10:12 PM EDT [facility] Pleural Fluid 09/05/2024 5:0 1 PM EDT 09/05/2024 7:55 PM EDT [facility] - 09/05/2024 10:12 PM EDT No established reference interval. Results should be interpreted in comparison to the concentration in blood and in conjunction with the clinical context. Pleural fluid LDH and total protein measurements are used for differentiation of exudates and transudates. Light's criteria can be used to identify most pleural exudative effusions if one or more of the following criteria are present: (1) pleural kirwp-hi-hjjnm protein ratio of >0.5, (2) pleural bfuoa-cv-tepoy LDH ratio of >0.6, or (3) a pleural fluid LDH activity that is >2/3 the upper limit of a normal serum LDH activity. Light's criteria may misclassify ~25% of transudates as exudates in heart failure. These can be identified by calculating a jorbk-hv-yrthniq albumin gradient (>1.2 g/dL) and/or a nqywl-nf-hasyf protein gradient (>3.1 g/dL). us Marilu [facility] BODY FLUIDS AND STOOLS O RDERABLES Final Result Performing Organization Address [facility] de Phone Number [facility] [address] [place] [address] * Glucose, body fluid (09/05/2024 5:01 PM EDT) Glucose, Fluid 193 mg/dL 09/05/2024 10:12 PM EDT [facility] Pleural Fluid 09/05/2024 5:0 1 PM EDT 09/05/2024 7:55 PM EDT Narrative [facility] - 09/05/2024 10:12 PM EDT Pleural No established reference interval. Results should be interpreted in comparison to the concentration in blood and in conjunction with the clinical context. Normal pleural fluid glucose is similar to serum concentrations. Pleural fluid transudates and most exudates usually have glucose concentrations of >60 mg/dL. Pleural fluid exudates with glucose concentrations <60 mg/dL have been associated with conditions such as para-pneumonic effusion, tuberculosis, malignancy, empyema, and/or rheumatoid disease. us Marilu [facility] BODY FLUIDS AND STOOLS O RDERABLES Final Result Performing Organization Address [facility] de Phone Number [facility] [address] [place] [address] documented in this encounter Visit Diagnoses Diagnosis Encounter for general adult medical examination without abnormal findings documented in this encounter Additional Health Concerns Assessment Noted Time A fall risk assessment has been complete d for the patient 11/01/2023 3:41 PM EDT A Body Mass Index follow-up plan has been documented for the patient 01/31/2024 9:03 PM EDT documented as of this encounter Care Teams Skin Care Consultant Relationship Specialty Start Date End Date Kinza Bennett MD [address] [place] [address] [address] [place] [address] PCP - General 11/01/20 documented as of this encounter
--- OUTSIDE RECORDS SUMMARY | 2025-05-11 17:31 | XMS_ITS | Clinical Summary ---
Author Organization Healthcare Address [address] [place] [address] Care Team Providers Care Electric Distribution Checker Name Role Phone Kinza Bennett MD Primary Care Provider [phone] Allergies Active Allergy Reactions Criticality Noted Date Comments Atorvastatin Other - please docum ent in the comment field Low 08/21/2005 Ezetimibe Nausea 07/19/2020 Dapagliflozin Diarrhea Low 01/31/2024 Niacin Unknown - Patient st ates they do not know rxn details Low 09/18/2010 Pravastatin Other - please docum ent in the comment field Medium 06/02/2019 Medications calcium carbonate-vitami n D 600-400 MG-UNIT tablet Take 1 tablet by mouth 1 (one) time each day. 1 Active rosuvastatin (Crestor) 10 MG tablet Take 1 tablet (10 mg) by mouth 1 (one) time each day. 1 Active ezetimibe (Zetia) 10 MG tablet Take 1 tablet (10 mg) by mouth 1 (one) time each day. 1 Active fluticasone (Flonase) 50 MCG/ACT nasal spray Administer 1 spray into each nostril 1 (one) time each day. 1 Active insulin aspart (NovoLOG FLEXPEN) 100 UNIT/ML injection Take by mouth every 6 (six) hours. 1 Active Icosapent Ethyl (Vascepa) 1 g capsule Take by mouth every 6 (six) hours. 1 Active insulin degludec (Tresiba FlexTouch) 100 UNIT/ML injection Take by mouth every 6 (six) hours. 1 Active cholecalciferol (Vitamin D-3) 50 MCG (1999 UT) capsule Take 1 capsule (50 mcg) by mouth 1 (one) time each day. 1 Active Calquence 100 MG tablet 2 (two) times a day. 3 Active Fiasp FlexTouch 100 UNIT/ML injection 4 Active doxazosin (Cardura) 1 MG tabletIndication s:CKD (chronic kidney disease) stage 4, GFR 15-29 ml/min (CMS/HCC),Essent ial hypertension Take 1 tablet (1 mg) by mouth 2 (two) times a day. 180 tablet 3 4 Active lisinopril 20 MG tabletIndication s:Essential hypertension,Per sistent proteinuria Take 1.5 tablets (30 mg) by mouth 1 (one) time each day. 90 tablet 3 4 Active dapagliflozin (Farxiga) 5 MG tabletIndication s:Persistent proteinuria,CKD (chronic kidney disease) stage 4, GFR 15-29 ml/min (CMS/HCC) Take 1 tablet (5 mg) by mouth 1 (one) time each day. 90 tablet 3 4 Active Additional Information Patient not taking.Reported on 01/21/2024 Continuous Glucose [employer] ([employer] G7 [employer]) device USE DIRECTED 01/03/20 2 4 Active metoprolol tartrate (Lopressor) 25 MG tablet TAKE 1 TABLET TWICE A DAY 180 tablet 3 4 Active hydroCHLOROthiaz antonio (Microzide) 12.5 MG capsule TAKE 1 CAPSULE DAILY 90 capsule 3 4 Active Active Problems Problem Noted Date Diagnosed Date Mixed hyperlipidemia 07/25/2020 Overview (05/22/2021): Last Assessment & Plan: Continue statin and ezetimibe. She will have recent lipid panel faxed to us. Diabetes mellitus 07/19/2020 Hypertension 07/19/2020 CKD (chronic kidney disease) stage 4, GFR 15-29 ml/min 07/04/2020 Immunizations Immunization Administration Dates Next Due Hep A, Adult 02/08/2019,01/02/2019,06/01/2018 Influenza Vaccine, Quadrival ent, Adjuvanted 04/18/2021 Influenza, Unspecified 04/18/2021 Influenza, high-dose, quadrivalent 04/09,04/02/2022,04/18/2020,04/04,04/04/2019,03/24/2018,04/09/2017 ,04/09/2016,04/09/2016,03/18/2015 Influenza, injectable, quadrivalent 04/19/2014 Influenza, seasonal, injectable 04/15/2010,03/19,04/02/2008 Influenza, seasonal, injecta ble, preservative free 04/11/2013 Influenza, trivalent, adjuvanted 04/09/2017 Moderna COVID-19 Vaccine (Re d Cap) 12+ years 08/15/2020,07/18/2020 Pneumococcal Conjugate PCV 13 04/09/2016 Pneumococcal Polysaccharide PPV23 09/03/2017,06/2011,04/20/2007 Td (adult) 04/20/2007 Tdap 04/02/2022 Zoster, live 04/16/2014 Family History Medical History Relation Name Comments Heart disease Father COPD Mother Relation Name Status Comments Father Mother Social History Tobacco Use Types Packs/Day Years Used Date Smoking Tobacco: Never Passive Smoke Exposure: Never Smokeless Tobacco: Never Tobacco Cessation:Counseling Given: Not Answered Alcohol Use Standard Drinks/Week Comments Never 0 (1 standard drink = 0.6 oz pur e alcohol) PHQ-2 Answer Date Recorded Patient Health Questionnaire-2 Score 0 11/01/2023 Comments Unknown Sex and Gender Information Value Date Recorded Sex Assigned at Not on file Legal Sex Female 8:12 PM EDT Gender Identity Not on file Sexual Orientation Not on file Last Filed Vital Signs Vital Sign Reading Time Taken Comments Blood Pressure 156/73 01/21/2024 8:45 AM EDT Pulse 69 01/21/2024 8:45 AM EDT Temperature - - Respiratory Rate 16 11/01/2023 3:35 PM EDT Oxygen Saturation 96% 01/21/2024 8:45 AM EDT Inhaled Oxygen Concentration - - Weight 90.7 kg (200 lb) 01/21/2024 8:45 AM EDT Height 165.1 cm (5' 5 ) 11/25/2020 12:09 PM EDT Body Mass Index 33.28 11/25/2020 12:09 PM EDT Plan of Treatment Health Maintenance Due Date Last Done Comments [facility]-Bone Density Scan 1950 [facility]-Hepatitis C Screening 1950 [facility]-Medicare Annual Wellness (AWV) 1950 [facility]-/Child/Adol SDOH Screenings 1950 Diabetes: Dental Exam 01/25/1960 [facility]- SDOH Screenings 01/25/1968 [facility]-Adult SDOH Screenings 01/25/1968 CT Colonography 1995 Colonoscopy 1995 FIT-DNA 1995 FIT 1995 FOBT 1995 Sigmoidoscopy 1995 [facility]-Colorectal Cancer Screening 1995 [facility]-Zoster Vaccines (2 of 3) 06/11/2014 04/16/2014 [facility]-Diabetes: Hemoglobin A1C 08/07/2024 02/08/2024, 07/29/2023 [facility]-Depression Screening 10/31/2024 11/01/2023 [id number] Vaccine ( season) 2025 04/24/2025, 03/10/2022, 10/07/2021, Additional history exists [facility]-DTaP,Tdap,and Td Vaccines (2 - Td or Tdap) 04/02/2032 04/02/2022, 04/20/2007 [facility]-Pneumococcal Vaccine: 50+ Years Completed 09/03/2017, 04/09/2016, 06/21/2011, Additional history exists [facility]-Breast Cancer Screening Discontinued 12/24/2017, 0 12/24/2017 [facility]-Hepatitis A Vaccines Aged Out 019, 01/02/2019, 06/01/2018 No longer eligible based on patient's age to complete this topic [facility]-Obesity Intervention Completed 024, 11/01/2023, 08/30/2023 [facility]-Influenza Vaccine Completed 03/20/2025 , 04/11/2024, 04/09/2023, Additional history exists [facility]-RSV Vaccine: 60+ Years or Completed 04/12/2025 HPV Vaccines Aged Out No longer eligi ble based on patient's age to complete this topic [facility]-HIB Vaccines Aged Out No longer e ligible based on patient's age to complete this topic [facility]-IPV Vaccines Aged Out No longer e ligible based on patient's age to complete this topic [facility]-Rotavirus Vaccines Aged Out No lo nger eligible based on patient's age to complete this topic Insurance Care Teams Electric Distribution Checker Relationship Specialty Start Date End Date Kinza Bennett MD [address] [place] [address] [address] [place] [address] PCP - General 11/01/20
--- OUTSIDE RECORDS SUMMARY | 2025-05-11 17:31 | XMS_ITS | Encounter Summary ---
[facility] Organization [facility] Address [address] [place] [address] Care Team Providers Care Pediatric Physician Name Role Phone Kinza Bennett MD Primary Care Provider + Reason for Visit * Reason Onset Date Comments MEDICAL RECORDS 05/03/2025 Encounter Details Date Type Department Care Team (Late st Contact Info) Description 05/03/2025 Telephone [facility] [address] [address] Lester Fine MD [address] [facility] [address] [place] [address] MEDICAL RECORDS Social History Tobacco Use Types Packs/Day Years Used Date Smoking Tobacco: Never Smokeless Tobacco: Never Alcohol Use Standard Drinks/Week Comments No 0 (1 standard drink = 0.6 oz pur e alcohol) PHQ-2 Answer Date Recorded Retired Total Score 0 12/04/2019 Abuse Screen Answer Date Recorded Unsafe at Home or Work/School Not on file Feels Threatened by Someone? Not on file 04/2023 Does Anyone Keep You from Co ntacting Others or Doint Things Outside the Home? Not on file 03/31/2023 Physical Sign of Abuse Present Not on file 1 Housing Stability Answer Date Recorded Current Living Arrangements Not on file 03/21 Potentially Unsafe Housing Conditions Not on michelle e 03/31/2023 Family and Community Support Answer Dion e Recorded Help with Day-to-Day Activities Not on file 03/31/2023 Lonely or Isolated Not on file 03/31/2023 Employment Answer Date Recorded Do you want help finding or keeping work or a carlos b? Not on file 03/31/2023 Disabilities Answer Date Recorded Concentrating, Remembering, or Making Decisions Difficulty Not on file 03/31/2023 Doing Errands Independently Difficulty Not on fi le 03/31/2023 Education Answer Date Recorded Help with school or training? Not on file Preferred Language Not on file 03/31/2023 Comments No Sex and Gender Information Value Date Recorded Sex Assigned at Not on file Legal Sex Female 9:59 AM EST Gender Identity Not on file Sexual Orientation Not on file documented as of this encounter Miscellaneous Notes * Telephone Encounter - Ashleigh Villalba MA - 05/03/2025 1:35 PM EST Please see previous messages. This cannot be completed until patients appointment on 05/24/2025 dueto not being since in over a year. * Telephone Encounter - Belinda Sanchez RegSched Rep - 05/03/2025 1:25 PM EST [facility] received a fax that requires your attention. The document has been indexed to the patient???s chart for your review. Reason for sending: DIABETIC SUPPLIES- PATIENT REQUEST Documents Description: MEDICATION 05/01/25 Name of Sender: [employer] Date Indexed: 05/03/25 Notes (if needed): FAX BACK CATIE documented in this encounter Plan of Treatment Upcoming Encounters Date Type Department Care Team (Late st Contact Info) Description 05/24/2025 10:45 AM EST Office Visit [facility] [address] [phone] Jostin Collins MD [address] [id number] documented as of this encounter Visit Diagnoses Not on filedocumented in this encounter Care Teams Pediatric Physician Relationship Specialty Start Date End Date Kinza Bennett MD [address] [place] [id number] PCP - General Family Medicine 05/27/16 documented as of this encounter
--- OUTSIDE RECORDS SUMMARY | 2025-05-11 17:31 | XMS_ITS | Clinical Summary ---
Author Organization [employer] ([place], [place], [place], [place], [place]) Address [address] [place] [address] Care Team Providers Care Gum Puller Name Role Phone Suman Hankins MD Unavailable [phone] Kinza Bennett MD Primary Care Provider [phone] Allergies Active Allergy Reactions Criticality Noted Date Comments Atorvastatin Low 08/21/2005 Other reaction(s): Other Ezetimibe Nausea Only 07/19/2020 Niacin Low 09/18/2010 Other reaction(s): Unknown Pravastatin Other (See Comments) Medium 06/02/2019 Other reaction(s): Myalgias (Muscle Pain) Medications doxazosin (CARDURA) 1 MG tablet Take 2 tablets (2 mg total) by mouth 2 (two) times daily. 04/19/2022 Active metoprolol tartrate (LOPRESSOR) 25 MG tablet Take 1 tablet (25 mg total) by mouth 2 (two) times daily. 04/19/2022 Active rosuvastatin (CRESTOR) 10 MG tablet Take 1 tablet (10 mg total) by mouth nightly. 02/25/2022 Active acalabrutinib maleate 100 mg Tab Take 1 tablet (100 mg total) by mouth 2 (two) times daily. Active ezetimibe (ZETIA) 10 mg tablet Take 1 tablet (10 mg total) by mouth daily. 07/03/2023 Active Fiasp FlexTouch U-100 Insulin 100 unit/mL (3 mL) InPn Inject subcutaneous ly. 07/21/2023 Active sodium bicarbonate 650 mg tablet Take 1 tablet (650 mg total) by mouth 4 (four) times daily. 05/26/2024 Active colchicine (COLCRYS) 0.6 mg tablet Take 0.5 tablets (0.3 mg total) by mouth daily. Active torsemide (DEMADEX) 20 MG tablet Take 1 tablet (20 mg total) by mouth daily. Active Active Problems Problem Noted Date Diagnosed Date Leukemia 07/06/2022 Anemia 06/27/2022 Encounters Date Type Department Care Team Description 02/08/2025 Telephone [facility] - [address] [place] [phone] Lobo Moody RN calquence from Last 3 Months Family History Medical History Relation Name Comments Lung cancer Brother Relation Name Status Comments Brother Social History Tobacco Use Types Packs/Day Years Used Date Smoking Tobacco: Never Smokeless Tobacco: Never Tobacco Cessation:Counseling Given: Not Answered Alcohol Use Standard Drinks/Week Comments Never 0 (1 standard drink = 0.6 oz pur e alcohol) Family and Community Support Answer Dion e Recorded Help with Day to Day Activities Not on file 07/01/2023 Feeling Lonely or Isolated Not on file 07/01 Educational Attainment Answer Date Lester rded Speak language other than Lithuanian at home Not on file 07/01/2023 Want help with school or training Not on file 07/01/2023 Substance Use Answer Date Recorded Used prescription meds for non-medical reasons N ot on file 07/01/2023 Used illegal drugs past 12 months Not on file 07/01/2023 Comments No Sex and Gender Information Value Date Recorded Sex Assigned at Not on file Legal Sex Female 5:20 PM CDT Gender Identity Not on file Sexual Orientation Not on file Last Filed Vital Signs Vital Sign Reading Time Taken Comments Blood Pressure 125/68 01/11/2025 11:04 AM EDT Pulse 73 01/11/2025 11:04 AM EDT Temperature 36.3 C (97.3 F) 01/11/2025 11:04 AM EDT Respiratory Rate 18 01/11/2025 11:04 AM EDT Oxygen Saturation 95% 01/11/2025 11:04 AM EDT Inhaled Oxygen Concentration - - Weight 86.2 kg (190 lb) 11/06/2024 10:46 AM EDT Height 162.6 cm (5' 4 ) 01/11/2025 11:04 AM EDT Body Mass Index 32.61 11/06/2024 10:46 AM EDT Plan of Treatment Upcoming Encounters Date Type Department Care Team (Late st Contact Info) Description 05/31/2025 11:00 AM EST Office Visit [facility] - [address] [place] [address] Suman Hankins MD [address] [facility] [address] [place] [address] Health Maintenance Due Date Last Done Comments CT Colonography 1950 Colonoscopy 1950 Colorectal Cancer Screening 1950 DXA SCAN 1950 FOBT/FIT 1950 Fit-DNA (Cologuard) 1950 Sigmoidoscopy 1950 Depression Screening (12+) 1962 Hepatitis C Screening 01/25/1968 Medicare Initial AWV G0438 11/20/2002 Shingles Vaccine (Zoster) (2 of 2) 06/11/2014 04/16/2014 Falls Risk Screening 06/21/2024 Respiratory Syncytial Virus (RSV) Adult or (1 - 1-dose 75+ series) 2025 COVID-19 VACCINE (6 - 2024-2 6 season) 2025 03/10/2022, 10/07/2021, 02/20/2021, Additional history exists Influenza Vaccine (#1) 2025 3, 04/02/2022, 04/18/2021, Additional history exists Tobacco Cessation Counseling and Screening (12+) 01/11/2026 01/11/2025 DTAP/TDAP/TD VACCINES (3 - T d or Tdap) 04/02/2032 04/02/2022, 04/20/2007 Pneumococcal 50+ years Completed 8, 04/09/2016, 06/21/2011, Additional history exists Breast Cancer Screening Discontinued 12/24/2017 Insurance [place] MED[place]ARE PART A B Advance Directives For more information, please contact: [phone] * DNR - Limited Additional Intervention (Latest Code Status on File) Date Activated Date Inactivated Comments 06/27/2022 4:33 AM 06/28/2022 5:06 PM If no pulse: N O intervention If has pulse: NO Intubation. May use BiPAP/CPAP Call [employer] Care Teams Gum Puller Relationship Specialty Start Date End Date Kinza Bennett MD [address] [facility] [address] [place] [address] PCP - General Family Medicine 11/06/24 Suman Hankins MD [address] [facility] [address] [place] [address] Medical Oncologist Hematology and Oncology 05/13/22
--- OUTSIDE RECORDS SUMMARY | 2025-05-11 17:31 | XMS_ITS | Referral Summary ---
Author Organization [email or web address] ([place], [place], [place], [place], [place]) Address [address] [place] [address] Care Team Providers Care Anesthesiologist Name Role Phone Suman Hankins MD Unavailable [phone] Kinza Bennett MD Primary Care Provider [phone] Encounters Date Type Department Care Team Description 02/08/2025 Telephone [facility] - [address] [place] [address] Lobo Moody, GAMALIEL lamb from Last 3 Months Allergies Active Allergy Reactions Criticality Noted Date [...] Date Diagnosed Date Leukemia 07/06/2022 Anemia 06/27/2022 Social History Tobacco Use Types Packs/Day Years [...] Date Lester rded Speak language other than Honduran at home Not on file 07/01/2023 Want [...] Description 05/31/2025 11:00 AM EST Office Visit [facility] - [address] [place] [address] Suman Hankins MD [address] [facility] [address] [place] [address] Insurance [place] MED[place]ARE PART A B Advance Directives For more information, please contact: [phone] * DNR - Limited Additional Intervention (Latest Code Status on File) Date Activated Date Inactivated Comments 06/27/2022 4:33 AM 06/28/2022 5:06 PM If no pulse: N O intervention If has pulse: NO Intubation. May use BiPAP/CPAP Call [employer] Care Teams Anesthesiologist Relationship Specialty Start Date End Date Kinza Bennett MD [address] [facility] [address] [place] [address] PCP - General Family Medicine 11/06/24 Suman Hankins MD [address] [place] [address] Medical Oncologist Hematology and Oncology 05/13/22
--- OUTSIDE RECORDS SUMMARY | 2025-05-11 17:31 | XMS_ITS | Patient Health Record ---
Author Organization [facility] [place] Address [address] [place] [address] Care Team Providers Care Research Clerk Name Role Phone Kinza Bennett MD Primary Care Provider MAZIN Mckeon Unavailable [phone] MILTON, MARIBELL Unavailable [phone] Razia Bray Unavailable [phone] Jenni Barber Unavailable [phone] Results Component Value Reference Range Notes CBC With Differential/Platel et Reviewed date:07/12/2024 10:21:31 AM Interpretation: Performing Lab:[facility] [place], [address] [facility] [place], Phone - [phone], Director - Martha Notes/Report: WBC 6.7 3.4-10.8 x10E3/uL RBC 3.49 3.77-5.28 x10E6/uL Hemoglobin 10.5 11.1-15.9 g/dL Hematocrit 33.6 34.0-46.6 % MCV 96 79-97 fL MCH 30.1 26.6-33.0 pg MCHC 31.3 31.5-35.7 g/dL RDW 13.6 11.7-15.4 % Platelets 139 150-450 x10E3/uL Neutrophils 64 Not Estab. % Lymphs 25 Not Estab. % Monocytes 7 Not Estab. % Eos 3 Not Estab. % Basos 1 Not Estab. % Neutrophils (Absolute) 4.2 1.4-7.0 x10E3/uL Lymphs (Absolute) 1.7 0.7-3.1 x10E3/uL Monocytes(Absolute) 0.5 0.1-0.9 x10E3/uL Eos (Absolute) 0.2 0.0-0.4 x10E3/uL Baso (Absolute) 0.1 0.0-0.2 x10E3/uL Immature Granulocytes 0 Not Estab. % Immature Grans (Abs) 0.0 0.0-0.1 x10E3/uL Comp. Metabolic Panel (14) Reviewed date:07/12/2024 10:21:31 AM Interpretation: Performing Lab:[facility] [place], [address] [facility], Phone - [phone], Director - [facility] Notes/Report: Glucose 95 70-99 mg/dL BUN 51 8-27 mg/dL Creatinine 3.11 0.57-1.00 mg/dL eGFR 15 >59 mL/min/1.73 BUN/Creatinine Ratio 16 12-28 Sodium 145 134-144 mmol/L Potassium 4.4 3.5-5.2 mmol/L Chloride 108 96-106 mmol/L Carbon Dioxide, Total 24 20-29 mmol/L Calcium 8.5 8.7-10.3 mg/dL Protein, Total 4.8 6.0-8.5 g/dL Albumin 3.5 3.8-4.8 g/dL Globulin, Total 1.3 1.5-4.5 g/dL Bilirubin, Total 0.2 0.0-1.2 mg/dL Alkaline Phosphatase 67 44-121 IU/L AST (SGOT) 15 0-40 IU/L ALT (SGPT) 19 0-32 IU/L Comp. Metabolic Panel (14) Reviewed date:07/12/2024 10:08:14 AM Interpretation: Performing Lab:[facility] [place], [address] [facility], Phone - [phone], Director - [facility] Notes/Report: Glucose 156 70-99 mg/dL BUN 56 8-27 mg/dL Creatinine 3.86 0.57-1.00 mg/dL eGFR 12 >59 mL/min/1.73 BUN/Creatinine Ratio 15 12-28 Sodium 147 134-144 mmol/L Potassium 4.1 3.5-5.2 mmol/L Chloride 112 96-106 mmol/L Carbon Dioxide, Total 20 20-29 mmol/L Calcium 8.5 8.7-10.3 mg/dL Protein, Total 4.7 6.0-8.5 g/dL Albumin 3.3 3.8-4.8 g/dL Globulin, Total 1.4 1.5-4.5 g/dL Bilirubin, Total 0.2 0.0-1.2 mg/dL Alkaline Phosphatase 72 44-121 IU/L AST (SGOT) 20 0-40 IU/L ALT (SGPT) 24 0-32 IU/L CBC With Differential/Platel et Reviewed date:07/12/2024 10:08:14 AM Interpretation: Performing Lab:[facility] [place], [address] [facility], Phone - [phone], Director - Martha Notes/Report: WBC 9.5 3.4-10.8 x10E3/uL RBC 3.56 3.77-5.28 x10E6/uL Hemoglobin 10.8 11.1-15.9 g/dL Hematocrit 34.7 34.0-46.6 % MCV 98 79-97 fL MCH 30.3 26.6-33.0 pg MCHC 31.1 31.5-35.7 g/dL RDW 13.1 11.7-15.4 % Platelets 151 150-450 x10E3/uL Neutrophils 70 Not Estab. % Lymphs 21 Not Estab. % Monocytes 6 Not Estab. % Eos 2 Not Estab. % Basos 1 Not Estab. % Neutrophils (Absolute) 6.7 1.4-7.0 x10E3/uL Lymphs (Absolute) 2.0 0.7-3.1 x10E3/uL Monocytes(Absolute) 0.6 0.1-0.9 x10E3/uL Eos (Absolute) 0.2 0.0-0.4 x10E3/uL Baso (Absolute) 0.1 0.0-0.2 x10E3/uL Immature Granulocytes 0 Not Estab. % Immature Grans (Abs) 0.0 0.0-0.1 x10E3/uL Comp. Metabolic Panel (14) Reviewed date:08/03/2024 08:39:18 AM Interpretation: Performing Lab:[facility] [place], [address] [facility], [place], Phone - [phone], Director - Martha Notes/Report: Glucose 107 70-99 mg/dL BUN 72 8-27 mg/dL Creatinine 4.76 0.57-1.00 mg/dL eGFR 9 >59 mL/min/1.73 BUN/Creatinine Ratio 15 12-28 Sodium 147 134-144 mmol/L Potassium 4.0 3.5-5.2 mmol/L Chloride 110 96-106 mmol/L Carbon Dioxide, Total 23 20-29 mmol/L Calcium 8.4 8.7-10.3 mg/dL Protein, Total 4.8 6.0-8.5 g/dL Albumin 3.1 3.8-4.8 g/dL Globulin, Total 1.7 1.5-4.5 g/dL Bilirubin, Total 0.2 0.0-1.2 mg/dL Alkaline Phosphatase 73 44-121 IU/L AST (SGOT) 20 0-40 IU/L ALT (SGPT) 26 0-32 IU/L CBC With Differential/Platel et Reviewed date:08/03/2024 08:35:03 AM Interpretation: Performing Lab:[facility] [place], [address] [facility] [place] [place], Phone - [phone], Director - Martha Notes/Report: WBC 6.7 3.4-10.8 x10E3/uL RBC 3.38 3.77-5.28 x10E6/uL Hemoglobin 10.1 11.1-15.9 g/dL Hematocrit 33.3 34.0-46.6 % MCV 99 79-97 fL MCH 29.9 26.6-33.0 pg MCHC 30.3 31.5-35.7 g/dL RDW 13.2 11.7-15.4 % Platelets 160 150-450 x10E3/uL Neutrophils 61 Not Estab. % Lymphs 28 Not Estab. % Monocytes 6 Not Estab. % Eos 4 Not Estab. % Basos 1 Not Estab. % Neutrophils (Absolute) 4.1 1.4-7.0 x10E3/uL Lymphs (Absolute) 1.9 0.7-3.1 x10E3/uL Monocytes(Absolute) 0.4 0.1-0.9 x10E3/uL Eos (Absolute) 0.3 0.0-0.4 x10E3/uL Baso (Absolute) 0.1 0.0-0.2 x10E3/uL Immature Granulocytes 0 Not Estab. % Immature Grans (Abs) 0.0 0.0-0.1 x10E3/uL Hemoglobin A1c Reviewed date:08/02/2024 01:46:40 PM Interpretation: Performing Lab:[facility] [address], Phone - [phone], Director - [facility] Notes/Report: Hemoglobin A1c 6.9 4.8-5.6 % . Prediabetes: 5.7 - 6.4 Diabetes: >6.4 Glycemic control for adults with diabetes: <7.0 Anti-GBM Antibodies Reviewed date:07/12/2024 10:09:46 AM Interpretation: Performing Lab:[facility] [address], Phone - [phone], Director - [facility] Notes/Report: and Drug Administration. by [facility]. It has not been cleared or approved by the Food was developed and its performance characteristics determined Test(s) 997006-Pdgp-Xudfqxl Ab by IFA (RDL) Anti-GBM Antibodies <0.2 0.0-0.9 units HOMA 12 Plus Profile (RDL) Reviewed date:07/12/2024 10:09:46 AM Interpretation: Performing Lab:[facility] [address], Phone - [phone], Director - [facility] Notes/Report: and Drug Administration. by [facility]. It has not been cleared or approved by the Food was developed and its performance characteristics determined Test(s) 005768-Jcal-Aszjqdq Ab by IFA (RDL) and Drug Administration. by [facility]. It has not been cleared or approved by the Food was developed and its performance characteristics determined Test(s) 543407-Ovcc-Yodqibw Ab by IFA (RDL) Anti-Nuclear Ab by IFA (RDL) Negative Negative Anti-Ro (SS-A) Ab (RDL) <20 <20 Units ANCA Profile Reviewed date:07/12/2024 10:09:46 AM Interpretation: Performing Lab:[facility] [address], Phone - [phone], Director - [facility] Notes/Report: Test(s) 906145-Tcsa-Cogcfiu Ab by IFA (RDL) was developed and its performance characteristics determined by [facility]. It has not been cleared or approved by the Food and Drug Administration. Anti-MPO Antibodies <0.2 0.0-0.9 units Anti-PR3 Antibodies <0.2 0.0-0.9 units Cytoplasmic (C-ANCA) <1:20 Neg:<1:20 titer Perinuclear (P-ANCA) <1:20 Neg:<1:20 titer The presence of positive fluorescence exhibiting P-ANCA or C-ANCA patterns alone is not specific for the diagnosis of Jolanta's Granulomatosis (WG) or microscopic polyangiitis. Decisions about treatment should not be based solely on ANCA IFA results. The International ANCA Group Consensus recommends follow up testing of positive sera with both CT-3 and MPO-ANCA enzyme immunoassays. As many as 5% serum samples are positive only by EIA. Ref. AM J Clin Pathol 1999;111:507-513. Atypical pANCA <1:20 Neg:<1:20 titer The atypical pANCA pattern has been observed in a significant percentage of patients with ulcerative colitis, primary sclerosing cholangitis and autoimmune hepatitis. C4+C3 Reviewed date:07/12/2024 10:09:46 AM Interpretation: Performing Lab:[facility] [address], Phone - [phone], Director - [facility] Notes/Report: Test(s) 972049-Beew-Epfhfxp Ab by IFA (RDL) was developed and its performance characteristics determined by [facility]. It has not been cleared or approved by the Food and Drug Administration. Complement C3, Serum 127 82-167 mg/dL Complement C4, Serum 22 12-38 mg/dL PDF Report Reviewed date:07/12/2024 10:09:46 AM Interpretation: Performing Lab:[facility] [address], Phone - [phone], Director - [facility] Notes/Report: Test(s) 148546-Dcru-Fdfzrtm Ab by IFA (RDL) was developed and its performance characteristics determined by [facility]. It has not been cleared or approved by the Food and Drug Administration. PDF Report1 [facility] Comp. Metabolic Panel (14) Reviewed date:07/12/2024 10:09:46 AM Interpretation: Performing Lab:[facility] [address], Phone - [phone], Director - [facility] Notes/Report: Test(s) 861759-Itdv-Nbzgyjj Ab by IFA (RDL) was developed and its performance characteristics determined by [facility]. It has not been cleared or approved by the Food and Drug Administration. Glucose 89 70-99 mg/dL BUN 67 8-27 mg/dL Creatinine 3.21 0.57-1.00 mg/dL eGFR 15 >59 mL/min/1.73 BUN/Creatinine Ratio 21 12-28 Sodium 142 134-144 mmol/L Potassium 4.8 3.5-5.2 mmol/L Chloride 110 96-106 mmol/L Carbon Dioxide, Total 17 20-29 mmol/L Calcium 8.5 8.7-10.3 mg/dL Protein, Total 5.1 6.0-8.5 g/dL Albumin 3.6 3.8-4.8 g/dL Globulin, Total 1.5 1.5-4.5 g/dL Bilirubin, Total <0.2 0.0-1.2 mg/dL Alkaline Phosphatase 68 44-121 IU/L AST (SGOT) 16 0-40 IU/L ALT (SGPT) 20 0-32 IU/L Protein Elec + Interp, Serum Reviewed date:07/12/2024 10:09:46 AM Interpretation: Performing Lab:[facility] [place], [address] [facility], Phone - [phone], Director - [facility] Notes/Report: Test(s) 130703-Afmu-Eevocjj Ab by IFA (RDL) was developed and its performance characteristics determined by [facility]. It has not been cleared or approved by the Food and Drug Administration. Albumin 3.0 2.9-4.4 g/dL Obrtn-7-Wptuxtdm 0.2 0.0-0.4 g/dL Rncem-4-Kdkolxee 0.8 0.4-1.0 g/dL Beta Globulin 0.8 0.7-1.3 g/dL Gamma Globulin 0.2 0.4-1.8 g/dL M-Ignacio Not Observed Not Observed g/dL Globulin, Total 2.1 2.2-3.9 g/dL A/G Ratio 1.4 0.7-1.7 Please note: Protein electrophoresis scan will follow via computer, mail, or medical coding specialist delivery. P E Interpretation, S The SPE pattern reflects hypogammaglobulinemia. Lowered gamma globulin levels may be found with monoclonal gammopathies, B-cell deficiency states, protein losing diseases, or may be transient in children. Serum immunofixation and examination of the urine for Bence Bhagat protein may be indicated if warranted by the clinical picture. PDF . Anti-PLA2R Reviewed date:07/12/2024 10:09:46 AM Interpretation: Performing Lab:[facility] [address], Phone - [phone], Director - [facility] Notes/Report: Test(s) 156142-Ztbi-Xsizcdm Ab by IFA (RDL) was developed and its performance characteristics determined by [facility]. It has not been cleared or approved by the Food and Drug Administration. Anti-PLA2R <1.8 0.0-19.9 RU/mL Negative <14.0 Borderline 14.0 - 19.9 Positive >19.9 Microalb/Creat Ratio, Rand Ur Reviewed date:07/12/2024 10:09:46 AM Interpretation: Performing Lab:[facility] [place] [id number] [facility], Phone - [phone], Director - [facility] Notes/Report: Test(s) 542413-Keqz-Clncybl Ab by IFA (RDL) was developed and its performance characteristics determined by [facility]. It has not been cleared or approved by the Food and Drug Administration. Albumin, Urine 1447.7 Not Estab. ug/mL Results confirmed on dilution. Alb/Creat Ratio 1338 0-29 mg/g creat Normal: 0 - 29 Moderately increased: 30 - 300 Severely increased: >300 Free K+L Lt Chains,Qn,S Reviewed date:07/12/2024 10:09:46 AM Interpretation: Performing Lab:[facility] [place] [id number] [facility], Phone - [phone], Director - [facility] Notes/Report: Test(s) 545487-Lsuk-Xyqerpe Ab by IFA (RDL) was developed and its performance characteristics determined by [facility]. It has not been cleared or approved by the Food and Drug Administration. Free Turah Lt Chains,S 25.4 3.3-19.4 mg/L Free Lambda Lt Chains,S 17.2 5.7-26.3 mg/L Turah/Lambda Ratio,S 1.48 0.26-1.65 Anti-dsDNA Antibodies Reviewed date:07/12/2024 10:09:46 AM Interpretation: Performing Lab:[facility] [address], Phone - [phone], Director - [facility] Notes/Report: Test(s) 756584-Otfj-Dywrdxz Ab by IFA (RDL) was developed and its performance characteristics determined by [facility]. It has not been cleared or approved by the Food and Drug Administration. Anti-DNA (DS) Ab Qn <1 0-9 IU/mL Negative <5 Equivocal 5 - 9 Positive >9 Vitamin D, 25-Hydroxy Reviewed date:07/12/2024 10:09:46 AM Interpretation: Performing Lab:[facility] [address], Phone - [phone], Director - [facility] Notes/Report: Test(s) 896557-Kznq-Jnyivru Ab by IFA (RDL) was developed and its performance characteristics determined by [facility]. It has not been cleared or approved by the Food and Drug Administration. Vitamin D, 25-Hydroxy 27.7 30.0-100.0 ng/mL Vitamin D deficiency has been defined by the [place] [employer] and an Endocrine Society practice guideline as a level of serum 25-OH vitamin D less than 20 ng/mL (1,2). The Endocrine Society went on to further define vitamin D insufficiency as a level between 21 and 29 ng/mL (2). 1. IOM ([place] of [employer]). 2010. Dietary reference intakes for calcium and D. [place]: The National Academies Press. 2. Liat MF, Ronaldo NC, Alin THOMPSON, et al. Evaluation, treatment, and prevention of vitamin D deficiency: an Endocrine Society clinical practice guideline. JCEM. 2010; 96(7):1911-30. PTH, Intact Reviewed date:07/12/2024 10:09:46 AM Interpretation: Performing Lab:[facility] [address], Phone - [phone], Director - [facility] Notes/Report: Test(s) 630637-Dklz-Rdfzmsw Ab by IFA (RDL) was developed and its performance characteristics determined by [facility]. It has not been cleared or approved by the Food and Drug Administration. PTH, Intact 92 15-65 pg/mL Sedimentation Rate-Westergre n Reviewed date:07/12/2024 10:09:46 AM Interpretation: Performing Lab:[facility] [place], [address] [place] [address], Phone - [phone], Director - [facility] Notes/Report: Test(s) 099141-Idfo-Hgiwayu Ab by IFA (RDL) was developed and its performance characteristics determined by [facility]. It has not been cleared or approved by the Food and Drug Administration. Sedimentation Rate-Westergren 15 0-40 mm/hr CBC With Differential/Platel et Reviewed date:07/12/2024 10:09:46 AM Interpretation: Performing Lab:[facility] [place], [address] [facility], Phone - [phone], Director - [facility] Notes/Report: Test(s) 555446-Cayp-Duavvim Ab by IFA (RDL) was developed and its performance characteristics determined by [facility]. It has not been cleared or approved by the Food and Drug Administration. WBC 7.1 3.4-10.8 x10E3/uL Effective May 22, 2024 profile 999638 WBC will be made non-orderable as a stand-alone order code. RBC 3.57 3.77-5.28 x10E6/uL Hemoglobin 10.7 11.1-15.9 g/dL Hematocrit 34.1 34.0-46.6 % MCV 96 79-97 fL MCH 30.0 26.6-33.0 pg MCHC 31.4 31.5-35.7 g/dL RDW 14.4 11.7-15.4 % Platelets 145 150-450 x10E3/uL Neutrophils 68 Not Estab. % Lymphs 22 Not Estab. % Monocytes 7 Not Estab. % Eos 2 Not Estab. % Basos 1 Not Estab. % Neutrophils (Absolute) 4.9 1.4-7.0 x10E3/uL Lymphs (Absolute) 1.6 0.7-3.1 x10E3/uL Monocytes(Absolute) 0.5 0.1-0.9 x10E3/uL Eos (Absolute) 0.2 0.0-0.4 x10E3/uL Baso (Absolute) 0.1 0.0-0.2 x10E3/uL Immature Granulocytes 0 Not Estab. % Immature Grans (Abs) 0.0 0.0-0.1 x10E3/uL Ferritin, Serum Reviewed date:07/12/2024 10:09:46 AM Interpretation: Performing Lab:[facility], Phone - [phone], [facility] Notes/Report: Test(s) 378944-Hlpd-Gcqjjfn Ab by IFA (RDL) was developed and its performance characteristics determined by [facility]. It has not been cleared or approved by the Food and Drug Administration. Ferritin 319 15-150 ng/mL C-Reactive Protein, Quant Reviewed date:07/12/2024 10:09:46 AM Interpretation: Performing Lab:[facility], Phone - [phone], [facility] Notes/Report: Test(s) 058941-Riuo-Udgeewj Ab by IFA (RDL) was developed and its performance characteristics determined by [facility]. It has not been cleared or approved by the Food and Drug Administration. C-Reactive Protein, Quant <1 0-10 mg/L TSH Reviewed date:07/12/2024 10:09:46 AM Interpretation: Performing Lab:[facility] [address], Phone - [phone], [facility] Notes/Report: Test(s) 643143-Qmlk-Poyffjz Ab by IFA (RDL) was developed and its performance characteristics determined by [facility]. It has not been cleared or approved by the Food and Drug Administration. TSH 4.080 0.450-4.500 uIU/mL Urinalysis, Complete Reviewed date:07/12/2024 10:09:46 AM Interpretation: Performing Lab:[facility] [address], Phone - [phone], [facility] Notes/Report: Test(s) 427443-Dpoj-Xqeyjwt Ab by IFA (RDL) was developed and its performance characteristics determined by [facility]. It has not been cleared or approved by the Food and Drug Administration. Test(s) 979705-Zymk-Yqltvxh Ab by IFA (RDL) was developed and its performance characteristics determined by [facility]. It has not been cleared or approved by the Food and Drug Administration. Specific Waterflow 1.017 1.005-1.030 pH 5.5 5.0-7.5 Urine-Color Yellow Yellow Appearance Clear Clear WBC Esterase Trace Negative Protein 3+ Negative/Trace Glucose Negative Negative Ketones Negative Negative Occult Blood Negative Negative Bilirubin Negative Negative Urobilinogen,Semi-Qn 0.2 0.2-1.0 mg/dL Nitrite, Urine Negative Negative Microscopic Examination See below: Micr oscopic was indicated and was performed. WBC 11-30 0 - 5 /hpf RBC None seen 0 - 2 /hpf Epithelial Cells (non renal) 0-10 0 - 10 /hpf Casts None seen None seen /lpf Bacteria Few None seen/Few Prot+CreatU (Random) Reviewed date:07/12/2024 10:09:46 AM Interpretation: Performing Lab:[facility], Phone - [phone], Director - [facility] Notes/Report: Test(s) 883713-Ngev-Ylbzumj Ab by IFA (RDL) was developed and its performance characteristics determined by [facility]. It has not been cleared or approved by the Food and Drug Administration. Creatinine, Urine 108.2 Not Estab. mg/dL Protein,Total,Urine 220.2 Not Estab. mg/dL Results confirmed on dilution. Protein/Creat Ratio 2035 0-200 mg/g creat Immunofixation, Serum Reviewed date:07/12/2024 10:09:46 AM Interpretation: Performing Lab:[facility] [place] [address] [facility], Phone - [phone], Director - [facility] Notes/Report: Test(s) 521322-Uxqg-Iudwkha Ab by IFA (RDL) was developed and its performance characteristics determined by [facility]. It has not been cleared or approved by the Food and Drug Administration. Immunofixation Result, Serum No monoclonality det ected. Immunoglobulin G, Qn, Serum 820 907-3877 mg/d L Result confirmed on concentration. Immunoglobulin A, Qn, Serum 46 64-422 mg/dL Result confirmed on concentration. Immunoglobulin M, Qn, Serum 16 26-217 mg/dL Result confirmed on concentration. Iron and TIBC Reviewed date:07/12/2024 10:09:46 AM Interpretation: Performing Lab:[facility] [address], Phone - [phone], Director - [facility] Notes/Report: Test(s) 069372-Gmtl-Ekrtfim Ab by IFA (RDL) was developed and its performance characteristics determined by [facility]. It has not been cleared or approved by the Food and Drug Administration. Iron Bind.Cap.(TIBC) 262 250-450 ug/dL UIBC 199 118-369 ug/dL Iron 63 27-139 ug/dL Iron Saturation 24 15-55 % LDH Reviewed date:07/12/2024 10:09:46 AM Interpretation: Performing Lab:[facility] [address], Phone - [phone], Director - [facility] Notes/Report: Test(s) 548067-Jety-Hglwzrp Ab by IFA (RDL) was developed and its performance characteristics determined by [facility]. It has not been cleared or approved by the Food and Drug Administration. LDH 201 119-226 IU/L Uric Acid, Serum Reviewed date:07/12/2024 10:09:46 AM Interpretation: Performing Lab:[facility] [address], Phone - [phone], Director - [facility] Notes/Report: Test(s) 629003-Xlcn-Incdpsg Ab by IFA (RDL) was developed and its performance characteristics determined by [facility]. It has not been cleared or approved by the Food and Drug Administration. Uric Acid 8.1 3.1-7.9 mg/dL Therapeutic ta rget for gout patients: <6.0 Vitamin B12 and Folate Reviewed date:07/12/2024 10:09:46 AM Interpretation: Performing Lab:[facility] [address], Phone - [phone], Director - [facility] Notes/Report: Test(s) 199847-Esxq-Rloipjk Ab by IFA (RDL) was developed and its performance characteristics determined by [facility]. It has not been cleared or approved by the Food and Drug Administration. Vitamin B12 552 535-0732 pg/mL Folate (Folic Acid), Serum 10.3 >3.0 ng/mL A serum folate concentration of less than 3.1 ng/mL is considered to represent clinical deficiency. Comp. Metabolic Panel (14) Reviewed date:08/15/2024 03:45:21 PM Interpretation: Performing Lab:[facility], [address] [place] [address], Phone - [phone], [facility]/Report: Glucose 111 70-99 mg/dL BUN 69 8-27 mg/dL Creatinine 4.66 0.57-1.00 mg/dL eGFR 9 >59 mL/min/1.73 BUN/Creatinine Ratio 15 12-28 Sodium 146 134-144 mmol/L Potassium 3.8 3.5-5.2 mmol/L Chloride 110 96-106 mmol/L Carbon Dioxide, Total 22 20-29 mmol/L Calcium 7.9 8.7-10.3 mg/dL Protein, Total 4.3 6.0-8.5 g/dL Albumin 3.1 3.8-4.8 g/dL Globulin, Total 1.2 1.5-4.5 g/dL Bilirubin, Total 0.2 0.0-1.2 mg/dL Alkaline Phosphatase 67 44-121 IU/L AST (SGOT) 19 0-40 IU/L ALT (SGPT) 27 0-32 IU/L Microalb/Creat Ratio, Randm Ur Reviewed date:08/15/2024 03:45:32 PM Interpretation: Performing Lab:[facility], [address] [place] [address], Phone - [phone], [facility] Notes/Report: Albumin, Urine 4383.5 Not Estab. ug/mL Results confirmed on dilution. Alb/Creat Ratio 5039 0-29 mg/g creat Normal: 0 - 29 Moderately increased: 30 - 300 Severely increased: >300 CBC With Differential/Platel et Reviewed date:08/15/2024 03:46:02 PM Interpretation: Performing Lab:[facility], [address] [place] [address], Phone - [phone], [facility] Notes/Report: WBC 6.1 3.4-10.8 x10E3/uL RBC 3.18 3.77-5.28 x10E6/uL Hemoglobin 9.5 11.1-15.9 g/dL Hematocrit 30.9 34.0-46.6 % MCV 97 79-97 fL MCH 29.9 26.6-33.0 pg MCHC 30.7 31.5-35.7 g/dL RDW 13.2 11.7-15.4 % Platelets 122 150-450 x10E3/uL Neutrophils 71 Not Estab. % Lymphs 20 Not Estab. % Monocytes 6 Not Estab. % Eos 2 Not Estab. % Basos 1 Not Estab. % Neutrophils (Absolute) 4.4 1.4-7.0 x10E3/uL Lymphs (Absolute) 1.3 0.7-3.1 x10E3/uL Monocytes(Absolute) 0.4 0.1-0.9 x10E3/uL Eos (Absolute) 0.1 0.0-0.4 x10E3/uL Baso (Absolute) 0.0 0.0-0.2 x10E3/uL Immature Granulocytes 0 Not Estab. % Immature Grans (Abs) 0.0 0.0-0.1 x10E3/uL Prot+CreatU (Random) Reviewed date:08/15/2024 03:45:43 PM Interpretation: Performing Lab:[facility] [place], [address] [facility] [place] [place], Phone - [phone], Director - Martha Notes/Report: Creatinine, Urine 87.0 Not Estab. mg/dL Protein,Total,Urine 681.5 Not Estab. mg/dL Results confirmed on dilution. Protein/Creat Ratio 7833 0-200 mg/g creat Reason For Referral No Information Medications Medication SIG (Take, Route, Frequency, Duration) Notes Start Date End Date Status Rosuvastatin Calcium 10 MG 1 tablet Orally Once a day; Duration: 90 days Active Sodium Bicarbonate 650 MG 2 tablets Orally twice daily; Duration: 90 days 05/26/2024 Active Calcium 600 MG 1 tablet with meals Orally Twice a day Active Doxazosin Mesylate 4 MG 1 tablet Orally Once a day; Duration: 90 days Needs appt for further fills after today Active Metoprolol Tartrate 25 MG 1 tablet with food Orally Twice a day; Duration: 90 days Active NovoLOG FlexPen 100 UNIT/ML 10 UNITS Subcutaneous 3 times a day; Duration: 90 days 01/26/2025 Active Vitamin D3 50 MCG (1999) 1 capsule Orally Once a day Active Basaglar KwikPen 100 UNIT/ML INJECT 40 UNITS SUBCUTANEOUSLY DAILY; Duration: 90 Active Calquence 100 MG 1 tablet Orally ever y 12 hrs Active Colchicine 0.6 MG HALF TABLET Orally daily Active Torsemide 20 MG 1 tablet Orally Once a day; Duration: 90 days Active Ezetimibe 10 MG 1 tablet Orally Once a day; Duration: 90 days Active Social History Tobacco Use: Social History Observation Description Date Details (start date - stop date) Never Smoker NA - NA Tobacco Control (Standard) Question Answer Notes Tobacco use: Nonsmoker AUDIT-C (Standard) Question Answer Notes Did you have a drink containing alcohol in the p ast year? No Points 0 Interpretation Negative Problems Problem Type SNOMED Code ICD Code Onset Dates Problem Status W/U Status Risk Notes Problem Hyperglycemia due to type 1 diabetes mellitus (989418452937060) Type 1 diabetes mellitus with hyperglycemia (E10.65) Active confirmed Problem Diabetic renal disease (638751163) Type 2 diabetes mellitus with diabetic chronic kidney disease (E11.22) Active confirmed Problem Hyperglycemia due to type 2 diabetes mellitus (046025772665640) Type 2 diabetes mellitus with hyperglycemia (E11.65) Active confirmed Problem Essential hypertension (46305127) Essential (primary) hypertension (I10) Active confirmed Problem Pleural effusion (72878131) Pleural effusion, not elsewhere classified (J90) Active confirmed Problem Chronic kidney disease stage 4 (773794251) Chronic kidney disease, stage 4 (severe) (N18.4) Active confirmed Problem Chronic kidney disease stage 5 (923279419) Chronic kidney disease, stage 5 (N18.5) Active confirmed Problem Mixed hyperlipidemia (560564121) Mixed hyperlipidemia (E78.2) Active confirmed Problem Hypertensive emergency (838634635652326) Hypertensive emergency (I16.1) Active confirmed Problem Vitamin D deficiency (81483367) Vitamin D deficiency (E55.9) Active confirmed Problem End-stage renal disease (00583163) End-stage renal disease (N18.6) Active confirmed Problem Diabetic renal disease (447549918) 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) Active confirmed Problem Chronic lymphoid leukemia, disease (57571694) CLL (chronic lymphocytic leukemia) (C91.10) Active confirmed Problem Anemia of chronic renal failure (31734845) Anemia associated with chronic renal failure (D63.1) Active confirmed Problem Dependence on hemodialysis (194602445) Dependence on hemodialysis (Z99.2) Active confirmed Problem 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) Active confirmed Vital Signs Heart Rate 103 /min 01/18/2025 Temperature 97.8 degrees Fahrenheit 01/18/2025 Respiratory Rate 18 /min 01/18/2025 Blood pressure diastolic 76 mm Hg 01/18/2025 Oximetry 90 % 01/18/2025 Height 66 in 01/18/2025 Blood pressure systolic 120 mm Hg 01/18/2025 Weight 170 lbs 01/18/2025 BMI 27.44 kg/m2 01/18/2025 Encounters Encounter Location Date Provider Diagnosis [facility] [place] [place] [address] 05/26/2024 REYNA FARHAN Chronic kidney disease, stage 4 (severe) N18.4 ; Benign essential hypertension I10 ; Hyperlipemia, mixed E78.2 ; Vitamin D deficiency E55.9 ; CLL (chronic lymphocytic leukemia) C91.10 ; Anemia associated with chronic renal failure D63.1 ; Isolated proteinuria R80.0 ; Type 1 diabetes mellitus with hyperglycemia E10.65 and Acute metabolic acidosis E87.21 [facility] [place] [place] [address] 06/05/2024 REYNA FARHAN Chronic kidney disease, stage 4 (severe) N18.4 ; Benign essential hypertension I10 ; Hyperlipemia, mixed E78.2 ; Vitamin D deficiency E55.9 ; CLL (chronic lymphocytic leukemia) C91.10 ; Anemia associated with chronic renal failure D63.1 ; Isolated proteinuria R80.0 and Type 1 diabetes mellitus with hyperglycemia E10.65 [facility] [place] [place] [address] 06/16/2024 REYNA FARHAN Chronic kidney disease, stage 4 (severe) N18.4 ; Benign essential hypertension I10 ; Hyperlipemia, mixed E78.2 ; Vitamin D deficiency E55.9 ; CLL (chronic lymphocytic leukemia) C91.10 ; Anemia associated with chronic renal failure D63.1 ; Isolated proteinuria R80.0 and Type 1 diabetes mellitus with hyperglycemia E10.65 [facility] [place] [address] 07/17/2024 MARIBELL ROSE Benign essential hypertension I10 ; Chronic kidney disease, stage 5 N18.5 ; Hyperlipemia, mixed E78.2 ; Vitamin D deficiency E55.9 ; CLL (chronic lymphocytic leukemia) C91.10 ; Anemia associated with chronic renal failure D63.1 ; Isolated proteinuria R80.0 and Type 1 diabetes mellitus with hyperglycemia E10.65 [facility] [place] [address] 08/07/2024 Jenni Barber Chronic kidney disease, stage 5 N18.5 ; Benign essential hypertension I10 ; CLL (chronic lymphocytic leukemia) C91.10 ; Anemia associated with chronic renal failure D63.1 and Type 1 diabetes mellitus with hyperglycemia E10.65 [facility] [place] [address] 08/17/2024 MAZIN QUISPE End stage renal disease N18.6 ; Type 2 diabetes mellitus with diabetic chronic kidney disease E11.22 ; Benign essential hypertension I10 ; Vitamin D deficiency E55.9 ; Hyperlipemia, mixed E78.2 and Anemia associated with chronic renal failure D63.1 [facility] [place] [address] 01/18/2025 MAZIN QUISPE Type II diabetes mellitus with nephropathy E11.21 ; Essential (primary) hypertension I10 ; Mixed hyperlipidemia E78.2 and End-stage renal disease N18.6 [facility] [place] [address] [place], [place] [id number] 05/31/2024 MARIBELL ROSE [facility] [place] [address] 12/28/2024 Razia Bray Acute metabolic acidosis E87.21 [facility] [place] [address] 12/28/2024 MAZIN QUISPE [facility] [place] [address], [place] [id number] 01/26/2025 MAZIN QUISPE [facility] [place] [address] [facility] [place] [id number] 01/26/2025 REZKALLA BUTROS [facility] [place] [address] [place], [place] [id number] 01/29/2025 REZKALLA BUTROS [facility] [place] [address] [place] [address] 01/30/2025 REZKALLA BUTROS [facility] [place] [address] [place], [place] [id number] 01/30/2025 REZKALLA BUTROS [facility] [place] [address] [facility] [address] [place], [place] [id number] 02/06/2025 REZKALLA BUTROS [facility] [place] [address] [place], [place] [id number] 02/14/2025 REZKALLA BUTROS [facility] [place] [address] [place], [place] [id number] 04/17/2025 REZKALLA BUTROS Assessments Encounter Date Diagnosis (ICD Code) Assessment Notes Treatment Notes Treatment Clinical Notes Section Notes 05/26/2024 Chronic kidney disease, stage 4 (severe) (ICD-10 - N18.4) discussed abt uremic symptoms and low k diet 06/05/2024 Chronic kidney disease, stage 4 (severe) (ICD-10 - N18.4) discussed abt uremic symptoms and low k diet 06/16/2024 Chronic kidney disease, stage 4 (severe) (ICD-10 - N18.4) discussed abt uremic symptoms and low k diet 07/17/2024 Benign essential hypertension (ICD-10 - I10) stable Discussed the precautions of HTN. Advised the patient to avoid smoking, alcohol consumption, salt ingestion, decongestants, and other stimulants. Diet and exercise are advised. Instructed pt to keep daily log of B/P readings 07/17/2024 Chronic kidney disease, stage 5 (ICD-10 - N18.5) we discussed in details stage Of CKD . we discussed the possible complications that can happen like (Anemia, HPT, hyperkalemia) we will cont. to monitor closely for these complications. some of them can be dangerous. advised to avoid NSAID it can cause worsening kidney function 08/07/2024 Chronic kidney disease, stage 5 (ICD-10 - N18.5) Lisinopril stopped. Increased doxazosin dose. Discussed limiting caffeine and pushing fluids. FU in [address] Quispe 08/07/2024 Benign essential hypertension (ICD-10 - I10) BP stable at visit. Discussed close monitoring 08/17/2024 Type 2 diabetes mellitus with diabetic chronic kidney disease (ICD-10 - E11.22) It is the most likely etiology behind CKD. I have a long discussion with pt. about target BG control and A1C and how controlling DM can slow down progression of kidney dx. and delay progression to ESRD . we discussed the benefits in other EOD also Pt. understand . 08/17/2024 End stage renal disease (ICD-10 - N18.6) Will plan for a direct admit for tunnelled cath and possible AVF to start HD 12/28/2024 Acute metabolic acidosis (ICD-10 - E87.21) 01/18/2025 Essential (primary) hypertension (ICD-10 - I10) 01/18/2025 Type II diabetes mellitus with nephropathy (ICD-10 - E11.21) 01/18/2025 Mixed hyperlipidemia (ICD-10 - E78.2) 08/17/2024 Benign essential hypertension (ICD-10 - I10) BP under good control with current regimen, discussed low salt diet, measuring BP some times. cont. current meds. 08/07/2024 CLL (chronic lymphocytic leukemia) (ICD-10 - C91.10) 07/17/2024 Hyperlipemia, mixed (ICD-10 - E78.2) recheck labs soon 06/16/2024 Benign essential hypertension (ICD-10 - I10) stable 06/05/2024 Benign essential hypertension (ICD-10 - I10) stable 05/26/2024 Benign essential hypertension (ICD-10 - I10) stable 05/26/2024 Hyperlipemia, mixed (ICD-10 - E78.2) will check labs 06/05/2024 Hyperlipemia, mixed (ICD-10 - E78.2) will check labs 06/16/2024 Hyperlipemia, mixed (ICD-10 - E78.2) recheck labs soon 08/07/2024 Anemia associated with chronic renal failure (ICD-10 - D63.1) 07/17/2024 Vitamin D deficiency (ICD-10 - E55.9) 08/17/2024 Vitamin D deficiency (ICD-10 - E55.9) 01/18/2025 End-stage renal disease (ICD-10 - N18.6) 08/17/2024 Hyperlipemia, mixed (ICD-10 - E78.2) 08/07/2024 Type 1 diabetes mellitus with hyperglycemia (ICD-10 - E10.65) a1c well controlled at 6.9% 07/17/2024 CLL (chronic lymphocytic leukemia) (ICD-10 - C91.10) dr mancia following 06/05/2024 Vitamin D deficiency (ICD-10 - E55.9) 06/16/2024 Vitamin D deficiency (ICD-10 - E55.9) 05/26/2024 Vitamin D deficiency (ICD-10 - E55.9) 05/26/2024 CLL (chronic lymphocytic leukemia) (ICD-10 - C91.10) dr mancia following 06/05/2024 CLL (chronic lymphocytic leukemia) (ICD-10 - C91.10) dr mancia following 07/17/2024 Anemia associated with chronic renal failure (ICD-10 - D63.1) stable 06/16/2024 CLL (chronic lymphocytic leukemia) (ICD-10 - C91.10) dr mancia following 08/17/2024 Anemia associated with chronic renal failure (ICD-10 - D63.1) HB stable 06/16/2024 Anemia associated with chronic renal failure (ICD-10 - D63.1) stable 07/17/2024 Isolated proteinuria (ICD-10 - R80.0) 06/05/2024 Anemia associated with chronic renal failure (ICD-10 - D63.1) will repeat work up 05/26/2024 Anemia associated with chronic renal failure (ICD-10 - D63.1) will repeat work up 05/26/2024 Isolated proteinuria (ICD-10 - R80.0) 06/05/2024 Isolated proteinuria (ICD-10 - R80.0) 06/16/2024 Isolated proteinuria (ICD-10 - R80.0) 07/17/2024 Type 1 diabetes mellitus with hyperglycemia (ICD-10 - E10.65) 06/16/2024 Type 1 diabetes mellitus with hyperglycemia (ICD-10 - E10.65) 06/05/2024 Type 1 diabetes mellitus with hyperglycemia (ICD-10 - E10.65) 05/26/2024 Type 1 diabetes mellitus with hyperglycemia (ICD-10 - E10.65) 05/26/2024 Acute metabolic acidosis (ICD-10 - E87.21) 07/17/2024 Other discussed abt dialysis initiation Plan Of Treatment Pending Test Test Name Order Date Vitamin B12 and Folate 04/21/2024 Uric Acid, Serum 04/21/2024 LDH 04/21/2024 Iron and TIBC 04/21/2024 Immunofixation, Serum 04/21/2024 Prot+CreatU (Random) 04/21/2024 Urinalysis, Complete 04/21/2024 TSH 04/21/2024 C-Reactive Protein, Quant 04/21/2024 Ferritin, Serum 04/21/2024 CBC With Differential/Platelet Sedimentation Rate-Westergren 04/21/2024 PTH, Intact 04/21/2024 Vitamin D, 25-Hydroxy 04/21/2024 Anti-dsDNA Antibodies 04/21/2024 Free K+L Lt Chains,Qn,S 04/21/2024 Microalb/Creat Ratio, Randm Ur 4 Anti-PLA2R 04/21/2024 Protein Elec + Interp, Serum 04/21/2024 Comp. Metabolic Panel (14) 04/21/2024 C4+C3 04/21/2024 ANCA Profile 04/21/2024 HOMA 12 Plus Profile (RDL) 04/21/2024 Anti-GBM Antibodies 04/21/2024 Next Appt Details Provider Name:MAZIN RAPP, 05/16/2025 02:15:00 PM, [address], [place], [address], Insurance Providers Payer Name Payer Address Payer Phone Subscriber Number Group Number Insured Name Patient Relationship to Insured Coverage Start Date Coverage End Date Medicare Part A [facility] [place] [address] [place] [address] [place] [address] [id number] NICHELLE BORRERO Self - patient is the insured [place] of [place] [address] [place] [address] [phone] [id number] NICHELLE BORRERO Self - patient is the insured Medical (General) History Medical History History ICD Code CLL - 2017 - dr Mancia - -CA LQUENCE (acalabrutinib) 1 tab bid htn hld - dm - CKD 4 - uncler etiology Surgical History Surgery Date(Month/Year) TUBAL 1978
--- OUTSIDE RECORDS SUMMARY | 2025-05-11 17:31 | XMS_ITS | Encounter Summary ---
Author Organization Healthcare Address [address] [place] [address] Care Team Providers Care Director Custom Name Role Phone Kinza Bennett MD Primary Care Provider [phone] Encounter Details Date Type Department Care Team (Late st Contact Info) Description 11/25/2024 Lab Requisition [facility] [address] [place] [address] Edilberto West, DO [address] [facility] [address] [place] [address] Encounter for general adult medical examination without [...] Diagnosis Comments TOTAL PROTEIN, PLEURAL FLUID Routine 11/25/2024 5:00 PM EDT Encounter for general adult medical examination without abnormal findings LACTATE DEHYDROGENASE, PLEURAL FLUID Routine 11/25/2024 5:00 PM EDT Encounter for general adult medical examination without abnormal findings GLUCOSE, PLEURAL FLUID Routine 11/25/2024 5:00 PM EDT Encounter for general adult medical examination without abnormal findings ALBUMIN, PLEURAL FLUID Routine 11/25/2024 5:00 PM EDT Encounter for general adult medical examination without abnormal findings documented in this encounter Results * Total Protein, Pleural Fluid (11/25/2024 5:00 PM EDT) Total Protein, Fluid 1.7 g/dL 11/25/2024 9:05 PM EDT [facility] Pleural Fluid 11/25/2024 5:0 0 PM EDT 11/25/2024 8:36 PM EDT Narrative [facility] - 11/25/2024 9:05 PM EDT This test was developed and its performance characteristics determined by [facility]. The U.S. Food and Drug Administration has not approved or cleared this test. However, FDA clearance or approval is not currently required for clinical use. The results are not intended to be used as the sole means for clinical diagnosis or patient management decisions. us Edilberto West DO LAB BODY FLUIDS AND STOOLS ORD ERABLES Final Result [facility] [address] [place] [address] * Albumin, body fluid (11/25/2024 5:00 PM EDT) Albumin, Pleural Fluid 1.2 g/dL 11/25/2024 9:05 PM EDT [facility] Pleural Fluid 11/25/2024 5:0 0 PM EDT 11/25/2024 8:36 PM EDT Narrative [facility] - 11/25/2024 9:05 PM EDT REPORTING RESULTS Reference Values: No established reference interval. Results should be interpreted in comparison to the concentration in blood and in conjunction with the clinical context. This test was developed and its performance characteristics determined by [facility]. The U.S. Food and Drug Administration has not approved or cleared this test; however, FDA clearance or approval is not currently required for clinical use. The results are not intended to be used as the sole means for clinical diagnosis or patient management decisions. Edilberto [email or web address] LAB BODY FLUIDS AND STOOLS ORD ERABLES Final Result Performing Organization Address [facility]/ZIP Co de Phone Number [facility] [address] [place] [address] * Lactate Dehydrogenase, Pleural Fluid (11/25/2024 5:00 PM EDT) LDH, Fluid 67 U/L 11/25/2024 9:05 PM EDT [facility] Pleural Fluid 11/25/2024 5:0 0 PM EDT 11/25/2024 8:36 PM EDT Narrative [facility] - 11/25/2024 9:05 PM EDT No established reference interval. Results should be interpreted in comparison to the concentration in blood and in conjunction with the clinical context. Pleural fluid LDH and total protein measurements are used for differentiation of exudates and transudates. Light's criteria can be used to identify most pleural exudative effusions if one or more of the following criteria are present: (1) pleural hzwzs-ic-ykbbn protein ratio of >0.5, (2) pleural exxiz-km-vxazl LDH ratio of >0.6, or (3) a pleural fluid LDH activity that is >2/3 the upper limit of a normal serum LDH activity. Light's criteria may misclassify ~25% of transudates as exudates in heart failure. These can be identified by calculating a nirtp-hp-zzklhby albumin gradient (>1.2 g/dL) and/or a netua-zm-ghpmd protein gradient (>3.1 g/dL). us Edilberto [employer] DO LAB BODY FLUIDS AND STOOLS ORD ERABLES Final Result Performing Organization Address [facility]/ZIP Co de Phone Number [facility] [address] [place] [address] * Glucose, body fluid (11/25/2024 5:00 PM EDT) Glucose, Fluid 189 mg/dL 11/25/2024 9:05 PM EDT [facility] Pleural Fluid 11/25/2024 5:0 0 PM EDT 11/25/2024 8:36 PM EDT Narrative [facility] - 11/25/2024 9:05 PM EDT Pleural No established reference interval. [...] tuberculosis, malignancy, empyema, and/or rheumatoid disease. us Edilberto West DO LAB BODY FLUIDS AND STOOLS ORD ERABLES Final Result [facility] [address] [place] [address] documented in this encounter Visit Diagnoses Diagnosis [...] documented as of this encounter Care Teams Director Custom Relationship Specialty Start Date End Date Kinza Bennett MD [address] [place] [address] [address] [place] [id number] PCP - General 11/01/20 documented as of this encounter
--- OUTSIDE RECORDS SUMMARY | 2025-05-11 17:31 | XMS_ITS | Data Portability ---
Author Organization [facility] [place] [facility] Address [address] [facility] [address] [place] [address] Assessment No assessment recorded. Plan of Treatment Reminders Order Date Submit Date Provider Last Modified By Organization Details Last Modified Time Details Appointments None recorded. Lab glucose, fingersti ck, blood 2018 019 [facility] , [address] [place] [address], [address], 9 10:07:57 hemoglobi n A1C, fingersti ck 2018 019 [facility] , [address] [place] [address], [address], 9 10:07:57 glucose, fingersti ck, blood 2017 018 [facility] , [address] [place] [address], [address], 8 11:13:40 hemoglobi n A1C, fingersti ck 2017 018 [facility] , [address] [place] [address], [address], 8 11:13:40 glucose, fingersti ck, blood 2017 018 [facility] , [address] [place] [address], [address], 8 11:56:15 hemoglobi n A1C, fingersti ck [address] [facility], [address] [place] [address], [address], 8 11:56:15 lipid panel, serum [address] [facility], [address] [place] [address], [address], 8 09:18:00 hepatic function panel, serum [address], [address] [place] [address], [address], 8 09:18:00 glucose, fingersti ck, blood [address] [facility], [address] [place] [address], [address], 7 10:03:17 hemoglobi n A1C, fingersti ck [address] [facility], [address] [place] [address], [address], 7 10:03:17 lipid panel, serum 2016 017 [facility], [address] [place] [address], [address], 7 14:04:56 CMP, serum or plasma 2016 017 [facility], [address] [place] [address], [address], 7 14:04:56 glucose, fingersti ck, blood [address] [facility] , [address] [place] [address], [address], 7 11:19:39 hemoglobi n A1C, fingersti ck 2016 017 [facility], [address] [facility], [place], [address], 7 11:19:39 Referral None recorded. Procedures None recorded. Surgeries None recorded. Imaging None recorded. Medication Orders Tresiba FlexTouch U-200 insulin 200 unit/mL (3 mL) subcutane ous pen 2018 019 INTERFACE [facility], [facility] [place], [address], 9 10:08:01 Novolog FlexPen U-100 Insulin aspart 100 unit/mL (3 mL) subcutane ous 2018 019 INTERFACE [facility], [facility], [address], 9 10:08:02 rosuvasta tin 10 mg tablet 2018 019 INTERFACE [facility], [facility], [address], 9 10:08:03 Zetia 10 mg tablet 2018 019 INTERFACE [facility], [facility], [address], 9 10:08:01 Novolog FlexPen U-100 Insulin aspart 100 unit/mL (3 mL) subcutane ous 2017 018 INTERFACE [facility], [facility], [address], 8 11:13:43 Lovaza 1 gram capsule 2017 018 [email or web address] [facility], [facility] [place], [address], 9 16:26:21 rosuvasta tin 10 mg tablet 2017 018 INTERFACE [facility], [facility] [place], [address], 8 12:36:53 Novolog FlexPen U-100 Insulin aspart 100 unit/mL (3 mL) subcutane ous 2017 018 INTERFACE [facility], [facility] [place], [address], 8 11:56:19 metoprolo l tartrate 25 mg tablet 2017 018 INTERFACE [facility], [facility] [place], [address], 8 11:56:17 Zetia 10 mg tablet 2017 018 INTERFACE [facility], [facility] [place], [address], 8 11:56:19 rosuvasta tin 20 mg tablet 2017 018 [facility], [facility] [place], [address], 9 12:57:22 Novolog FlexPen U-100 Insulin aspart 100 unit/mL (3 mL) subcutane ous 2016 017 INTERFACE [facility], [facility] [place], [address], 7 10:03:19 Novolog U-100 Insulin aspart 100 unit/mL subcutane ous solution 2016 017 [email or web address] [facility], [facility] [place], [address], 7 09:14:32 OneTouch Ultra Test strips 2016 017 INTERFACE [facility], [facility] [place], [address], 7 11:19:40 Toujeo SoloStar U-300 Insulin 300 unit/mL (1.5 mL) subcutane ous pen 2016 017 [email or web address] [facility], [facility] [place], [address], 8 16:50:28 Lovaza 1 gram capsule 2016 017 [email or web address] [facility], [facility] [place] [place], [address], 9 16:26:21 pravastat in 80 mg tablet 2016 017 [facility], [facility] [place] [place], [address], 8 11:50:00 Patient TargetsNo targets recorded. Patient Instructions Encounter Date Encounter Id Patient Instructions Last Modified By Organization Details Last Modified Time 05/27/2017 [id number] 1. MEDICATION INSTRUCTIONS: Toujeo 32 units am and 32 units pm. Novolog 10 units before breakfast, 14 units before lunch and 17 units before supper. 2. Monitor your blood glucose at least 4 times per day to include before meals and 2 hours after evening meal and any time you feel that your blood glucose might be low. 3. Goal Blood glucose: Fasting (before breakfast) 80-130. 2 hours after meals <180. Low is considered <70. Treat by drinking 6 oz of juice or 3 glucose tablets and recheck in 15 min, repeat if still <70. Sometimes you might feel low even when your BG is normal, so if possible check your BS first to make sure you do not overtreat. 4. Recommendation is to eat 3 meals daily and limit/restrict carbohydrates (Men: less than 60g per meal and less than 15g per snack; Women: less than 45g per meal and less than 15g per snack). 5. Try to be as active as tolerated. Being active will help with insulin sensitization/bloo d sugar control and will also help with weight loss if that is a goal. Goal activity should be: approximately 30 minutes per day, at least 5-7 days per week. Activity can be divided into 3- 10 minute sessions if needed. 6. Keep feet clean and dry. Use lotion on feet to prevent dryness but do NOT apply lotion between toes. Wear comfortable shoes and socks that fit appropriately and check your feet every day. NEVER go barefoot (not even at home). A foot exam by a disability specialist or other provider is recommended at least yearly and at other times if needed. 7. Recommend annual dilated eye exam. Please have results faxed to our office [phone]. 8. Recommend yearly dental exam (if indicated). 9. Stay up to date with yearly flu shot and immunizations as indicated (i.e. pneumonia, shingles, etc). 10. Follow up in 4 months. Always bring your blood glucose meter or written blood glucose readings to every Endocrinology appointment. Not available 05/27/2017 09:51:16 01/07/2018 [id number] diabetes foot health: care instructions Not available 01/07/2018 11:56:15 eating healthy foods: care instructions Not available 01/07/2018 12:17:54 1. MEDICATION INSTRUCTIONS: Toujeo 32 units am and 32 units pm. Novolog 10 units before breakfast, 14 units before lunch and 17 units before supper. 2. Monitor your blood glucose at least 4 times per day to include before meals and 2 hours after evening meal and any time you feel that your blood glucose might be low. 3. Goal Blood glucose: Fasting (before breakfast) 80-130. 2 hours after meals <180. Low is considered <70. Treat by drinking 6 oz of juice or 3 glucose tablets and recheck in 15 min, repeat if still <70. Sometimes you might feel low even when your BG is normal, so if possible check your BS first to make sure you do not overtreat. 4. Recommendation is to eat 3 meals daily and limit/restrict carbohydrates (Men: less than 60g per meal and less than 15g per snack; Women: less than 45g per meal and less than 15g per snack). 5. Try to be as active as tolerated. Being active will help with insulin sensitization/bloo d sugar control and will also help with weight loss if that is a goal. Goal activity should be: approximately 30 minutes per day, at least 5-7 days per week. Activity can be divided into 3- 10 minute sessions if needed. 6. Keep feet clean and dry. Use lotion on feet to prevent dryness but do NOT apply lotion between toes. Wear comfortable shoes and socks that fit appropriately and check your feet every day. NEVER go barefoot (not even at home). A foot exam by a disability specialist or other provider is recommended at least yearly and at other times if needed. 7. Recommend annual dilated eye exam. Please have results faxed to our office [phone]. 8. Recommend yearly dental exam (if indicated). 9. Stay up to date with yearly flu shot and immunizations as indicated (i.e. pneumonia, shingles, etc). 10. Follow up in 4 months. Always bring your blood glucose meter or written blood glucose readings to every Endocrinology appointment. Not available 01/07/2018 11:28:27 05/10/2018 [id number] hypoglycemia: ca re instructions Not available 05/10/2018 11:13:40 Starting a Weight-Loss Plan: Care Instructions Not available 05/10/2018 11:13:40 When You Want to Lose Weight: Care Instructions Not available 05/10/2018 11:13:40 eating healthy foods: care instructions Not available 05/10/2018 11:13:40 Total time spent qudi-ik-gxer with patient is over 25 minutes with > 50 % spent on counseling. Not available 05/10/2018 12:13:52 09/06/2018 [id number] When You Want to Lose Weight: Care Instructions Not available 09/06/2018 10:07:57 high blood pressure: care instructions Not available 09/06/2018 10:07:57 high cholesterol : care instructions Not available 09/06/2018 10:07:57 Total time spent [id number] with patient is over 25 minutes with > 50 % spent on counseling. Not available 09/06/2018 10:11:56 Reason for Referral None Reported. Results Created Date Observation Date Name Description Value Unit Range Abnormal Flag Note LastModifiedBy Organization Detail LastModifiedTime 09/07/1909/06/2018 hemog lobin A1C, finge rstic k hemoglobin A1C % 8.2 % 4.0 - 5.6 Not Available [facility] [address] [place] [address], [address], 09/06/2018 09:40:36 09/07/19 19 09/06/2018 gluco se, finge rstic k, blood glucose, fingerstick 126 mg/dL 70 - 100 Not Available [facility] [address] [place] [address], [address], 09/06/2018 09:40:13 05/10/20 18 05/10/2018 hemog lobin A1C, finge rstic k hemoglobin A1C % 8.1 % 4.0 - 5.6 Not Available [facility] [address] [place] [address], [address], 05/10/2018 10:43:49 05/10/20 18 05/10/2018 gluco se, finge rstic k, blood glucose, fingerstick 132 mg/dL 70 - 100 Not Available [facility] [address] [place] [address], [address], 05/10/2018 10:43:04 01/08/20 18 01/07/2018 hemog lobin A1C, finge rstic k hemoglobin A1C % 8.3 % 4.0 - 5.6 Not Available [facility] [address] [place] [address], [address], 01/07/2018 11:23:34 05/27/20 17 05/27/2017 hemog lobin A1C, finge rstic k hemoglobin A1C % 8.2 % 4.0 - 5.6 Not Available [facility] [address] [place], [address], 05/27/2017 09:19:17 05/27/20 17 05/27/2017 gluco se, finge rstic k, blood glucose, fingerstick 209 mg/dL 70 - 100 Not Available [facility] [place] [address] [place] [address], [address], 05/27/2017 09:18:53 01/29/20 17 01/28/2017 hemog lobin A1C, finge rstic k hemoglobin A1C % 7.6 % 4.0 - 5.6 Not Available [facility] [place] [address] [place] [address], [address], 01/28/2017 10:42:44 01/29/20 17 01/28/2017 gluco se, finge rstic k, blood glucose, fingerstick 170 mg/dL 70 - 100 Not Available [facility] [place] [address] [place] [address], [address], 01/28/2017 10:42:23 01/29/20 17 01/28/2017 lipid panel , serum HDL cholesterol 36 mg/dL 66-242 low Not Available [facility] [address] [place] [address], [address], 01/28/2017 09:40:18 01/29/2001/28/2017 lipid panel , serum triglyceride s 574 mg/dL 0-149 high TRIGL YCERI DE RANGE S MARANDA L: < 150 BORDE RLINE HIGH: 150 - 199 HIGH: 200 - 499 VERY HIGH: > OR = 500 Not Available [facility] [address] [place] [address], [address], 01/28/2017 09:40:18 01/29/20 17 01/28/2017 lipid panel , serum cholesterol 297 mg/dL 0-199 high FOZIA STERO L (TOTA L) RANGE S FREDRICK ABLE: < 200 BORDE RLINE : 200 - 239 HIGHE R RISK: > 239 Not Available [facility] [address] [place] [address], [address], 01/28/2017 09:40:18 01/29/20 17 01/28/2017 lipid panel , serum LDL cholesterol - mg/dL _(paris c) 0-99 abnormal Trigl yceri de resul t is > 400. LDL canno t be calcu lated . LDL FOZIA STERO L RANGE S OPTIM AL: < 100 NEAR/ ABOVE OPTIM AL: 100 - 129 BORDE RLINE HIGH: 130 - 159 HIGH: 160 - 189 VERY HIGH: > OR = 190 Not Available [facility] [address] [place] [address], [address], 01/28/2017 09:40:18 01/29/20 17 01/28/2017 CMP, serum or plasm a glucose 142 mg/dL 74-100 high Not Available [facility] [address] [place] [address], [address], 01/28/2017 09:40:19 01/29/20 17 01/28/2017 CMP, serum or plasm a blood urea nitrogen 40 mg/dL 6-20 high Not Available [facility] [address] [place] [address], [address], 01/28/2017 09:40:19 01/29/20 17 01/28/2017 CMP, serum or plasm a creatinine 1.46 mg/dL 0.50-0 .95 high Not Available [facility] [address] [place] [address], [address], 01/28/2017 09:40:19 01/29/20 17 01/28/2017 CMP, serum or plasm a BUN/creatini ne ratio 27 (calc ) 10-20 high Not Available [facility] [address] [place] [address], [address], 01/28/2017 09:40:19 01/29/20 17 01/28/2017 CMP, serum or plasm a GFR 43 >= 60 abnormal Not Available [facility] [address] [place], [address], 01/28/2017 09:40:19 01/29/2001/28/2017 CMP, serum or plasm a GFR non- 37 >= 60 abnormal NOT E NEW calcu latio n for GFR is based on the Natio nal Kidne y Found ation CKD-E PI equat ion and allow s for repor ting GFR value s great er than 60 mL/mi n/1.7 3 m2. This calcu latio n has not been valid ated for patie nts less than 18 yrs., pregn ant women and Hispa nics. Chron ic kidne y disea se is defin ed as kidne y damag e or GFR less than 60 mL/mi n/1.7 3 m2 for 3 month s or longe r. . Not Available [facility] [address] [place], [address], 01/28/2017 09:40:19 01/29/2001/28/2017 CMP, serum or plasm a sodium 143 mmol/ L 136-14 5 normal Not Available [facility] [address] [place], [address], 01/28/2017 09:40:19 01/29/2001/28/2017 CMP, serum or plasm a potassium 4.9 mmol/ L 3.4-5. 0 normal Not Available [facility] [address] [place], [address], 01/28/2017 09:40:19 01/29/2001/28/2017 CMP, serum or plasm a chloride 104 mmol/ L 98-107 normal Not Available [facility] [address] [place], [address], 01/28/2017 09:40:19 01/29/20 17 01/28/2017 CMP, serum or plasm a carbon dioxide 25 mmol/ L 20-32 normal Not Available [facility] [address] [place], [address], 01/28/2017 09:40:19 01/29/20 17 01/28/2017 CMP, serum or plasm a anion gap 14 (calc ) 7-25 normal NOTE: New refer ence range . Not Available [facility] [address] [place] [address], [address], 01/28/2017 09:40:19 01/29/20 17 01/28/2017 CMP, serum or plasm a calcium 9.1 mg/dL 8.6-10 .2 normal Not Available [facility] [address] [place] [address], [address], 01/28/2017 09:40:19 01/29/2001/28/2017 CMP, serum or plasm a total protein 6.2 g/dL 6.4-8. 3 low Not Available [facility] [address] [place] [address], [address], 01/28/2017 09:40:19 01/29/2001/28/2017 CMP, serum or plasm a albumin 3.7 g/dL 3.5-5. 2 normal Not Available [facility] [address] [place] [address], [address], 01/28/2017 09:40:19 01/29/2001/28/2017 CMP, serum or plasm a globulin 2.5 g/dL_ (calc ) 1.5-4. 5 normal Not Available [facility] [address] [place] [address], [address], 01/28/2017 09:40:19 01/29/2001/28/2017 CMP, serum or plasm a albumin/glob ulin ratio 1.5 (calc ) 1.1-2. 5 normal Not Available [facility] [address] [place] [address], [address], 01/28/2017 09:40:19 01/29/2001/28/2017 CMP, serum or plasm a bilirubin, total 0.2 mg/dL 0.1-1. 2 normal Not Available [facility] [address] [place], [address], 01/28/2017 09:40:19 01/29/20 17 01/28/2017 CMP, serum or plasm a alkaline phosphatase 62 U/L 35-105 normal Not Available [facility] [address] [place], [address], 01/28/2017 09:40:19 01/29/20 17 01/28/2017 CMP, serum or plasm a AST 23 U/L 0-32 normal Not Available [facility] [address] [place] [address], [address], 01/28/2017 09:40:19 01/29/20 17 01/28/2017 CMP, serum or plasm a ALT 24 U/L 0-33 normal Not Available [facility] [address] [place] [address], [address], 01/28/2017 09:40:19 01/29/20 17 01/28/2017 T4, free, serum T4,free 1.14 NG/dL 0.93-1 .70 normal Not Available [facility] [address] [place], [address], 01/28/2017 09:49:38 01/29/20 17 01/28/2017 TSH, serum or plasm a TSH 3.580 uIU/m L 0.290- 5.500 normal Not Available [facility] [address] [place], [address], 01/28/2017 09:53:58 01/08/20 18 01/07/2018 gluco se, finge rstic k, blood glucose, fingerstick 78 mg/dL 70 - 100 Not Available [facility] [place] [address] [place] [address], [address], 01/07/2018 11:22:53 Result Notes None recorded. 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 730002878 Active 2014 From Automated Load;Prov ider: Peraza, Lorie;S tatus: Active Not Available [facility] 6 05:14:09 Renal disorder due to type 1 diabetes mellitus 776591700 Active 2014 From Automated Load;Prov ider: Peraza, Lorie;S tatus: Active Not Available [facility] 6 05:14:09 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 202838462 Active 2014 From Automated Load;Prov ider: Peraza, Lorie;S tatus: Active Not Available [facility] 6 05:14:09 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 Procedures Surgical History Date Name Laterality Status Provider Name and Address Organization Details Recorded Time [employer]el [employer] Surgery completed [facility] 10/01/2016 10:04:51 Eye Surgery completed [facility] 10/01/2016 10:05:02 Imaging Results None recorded. Procedure Notes None recorded. Medical Equipment None Reported. Allergies Allergen ID Allergen Name Allergen Category Reaction Reaction Severity Criticality Documentation Date Start Date Code Code System Note Provider Name and Address Organization Details Recorded Time [id number] Pravachol medicatio n other Not available Not available 05/15/20162005 86159 3 RxNorm React ion: OTHER ; Comme nt: Incre ases CPK;C reate d By: Shreyas eataurora Shell y;Cre ated Date: 006 2:58: 14 PM; LORIE MILLS, SPECIMEN COLLECTOR [address] [place], [address], [facility] 7 17:40:46 [id number] Lipitor medicatio n other Not available Not available 05/15/20162005 79619 5 RxNorm React ion: OTHER ; Comme nt: cause s liver enzym es to incre ase;C reate d By: Galyajaira eataurora Shell y;Cre ated Date: 006 2:57: 40 PM; Not Available [facility] 6 09:53:18 [id number] Niaspan medicatio n Not available Not available Not available 05/15/20162010 81366 6 RxNorm Comme nt: itchy rash; Creat ed By: Deonna Wahl ca;Cr eated Date: 2010 3:54: 51 PM; Not Available [facility] 6 09:53:18 [id number] pravastat in medicatio n myalgias (muscle pain) moderate Not available 05/10/2018 32718 RxNorm LORIE MILLS, SPECIMEN COLLECTOR [address] [place], [address], [facility] 8 11:02:29 Medications Name Sig Start Date Stop Date Status Note LastModified by Organization Details LastModified Time amoxicill in 500 mg capsule active Not Available Not Available Not Available doxazosin 1 mg tablet active Not Available Not Available Not Available azithromy maria elena 250 mg tablet 10/01 completed Not Available Not Available Not Available pravastat in 40 mg tablet Every night at bedtime 01/28 completed Not Available Not Available Not Available sumatript an 100 mg tablet active Not Available Not Available Not Available lisinopri l 20 mg tablet Take 1 tablet twice a day by oral route. active Not Available Not Available No t Available ciproflox acin 250 mg tablet 05/10 completed Not Available Not Available Not Available pravastat in 80 mg tablet Take 1 tablet every day by oral route in the evening. 01/07 completed Not Available Not Available Not Available prednisol one acetate 1 % eye drops,po pension 09/06 completed Not Available Not Available Not Available OneTouch Ultra Test strips As Directed 4 times daily E10.8 2016 active 01/28/17 05/27/17 Not Available Not Available Not Available Calcium-6 00 600 mg (as calcium carbonate 1,500 mg) tablet Daily 01/07 completed Frequenc y: daily;Al t Frequenc y: with meals;Me dication Descript ion: calcium carbonat e; Dosage:1 ; Route:or al; refills: 0; Quantity :otc tablet Not Available Not Available Not Available hydrochlo rothiazid e 12.5 mg capsule 1 every other day active Frequenc y: daily;Me dication Descript ion: hydrochl orothiaz antonio; Dosage:1 ; Route:or al; refills: 0; Quantity :30 Not Available Not Available Not Available lisinopri l 30 mg tablet Take 1 tablet every day by oral route. 05/10 completed Not Available Not Available Not Available insulin syringe U-100 with needle 1 mL 31 gauge x 11/03 completed Not Available Not Available Not Available Novolog U-100 Insulin aspart 100 unit/mL subcutane ous solution 10 units acb, 14 units acl and 14 units acsupper plus scale (up to 50 units daily) E10.8 05/27 completed Not Available Not Available Not Available fluticaso ne propionat e 50 mcg/actua tion nasal spray,po pension active Not Available Not Available Not Available Esgic 50 mg-325 mg-40 mg tablet Three times a day 01/07 completed Instruct ions: for headache s;Freque ncy: tid;Alt Frequenc y: prn;Medi cation Descript ion: APAP/but albital/ caffeine ; Dosage:1 ; Route:or al; refills: PRN 6 mo; Quantity :90 tablet Not Available Not Available Not Available calcitrio l 0.25 mcg capsule 05/10 completed Not Available Not Available Not Available amoxicill in 875 mg-potass ium clavulana te 125 mg tablet 10/01 completed Not Available Not Available Not Available ezetimibe 10 mg tablet 1 tablet Every morning active Not Available Not Available No t Available Novolog FlexPen U-100 Insulin aspart 100 unit/mL (3 mL) subcutane ous 10 units acb, 14 units acl and 21 units ac supper E10.8 active Not Available Not Available No t Available rosuvasta tin 10 mg tablet TAKE 1 TABLET AT BEDTIME active Not Available Not Available No t Available rosuvasta tin 20 mg tablet 1 tablet qhs 07/15 completed Not Available Not Available Not Available metoprolo l tartrate 25 mg tablet TAKE 1 TABLET TWICE A DAY FOR BLOOD PRESSURE (HYPERTE NSION) active Not Available Not Available No t Available nitrofura ntoin monohydra te/macroc rystals 100 mg capsule 01/07 completed Not Available Not Available Not Available Fish Oil 01/28 completed Instruct ions: 2 x daily (OTC);Me dication Descript ion: omega-3 polyunsa turated fatty acids; Route:or al; refills: 0 Not Available Not Available Not Available One Touch Lancets As Directed 4 times daily E10.8 2016 active Instruct ions: Check BG an average of 4 times daily on intensiv e basal/kendell rasta insulin regimen, for diabetes . dx E10.8 with fluctuat ing blood sugars;F requency : as direct.; Medicati on Descript ion: Supplies ; Dosage:1 ; refills: 4; Quantity :400 Not Available Not Available Not Available Insulin Syringe As Directed 10/01 completed Instruct ions: dx E10.8 uses 3 x daily with Novolog; Frequenc y: as direct.; Medicati on Descript ion: Supplies ; Dosage:1 ; refills: 12; Quantity :200 Not Available Not Available Not Available OneTouch Ultra2 Meter kit As Directed 1 daily E11.8 2015 active Instruct ions: E11.9;Fr equency: as direct.; Medicati on Descript ion: Supplies ; Dosage:a s directed ; refills: 0; Quantity :1 Not Available Not Available Not Available BD Insulin Syringe Ult-Fine II 1 mL 31 gauge x 5/16 daily 5 daily E10.8 01/07 completed Not Available Not Available Not Available hydrochlo rothiazid e 12.5 mg tablet 09/06 completed Not Available Not Available Not Available Havrix (PF) 1,440 RUSSELL unit/mL intramusc ular syringe 09/06 completed Not Available Not Available Not Available Lovaza 1 gram capsule 12/21 completed Not Available Not Available Not Available SymlinPen 60 1,500 mcg/1.5 mL subcutane ous pen injector Three times a day 10/01 completed Not Available Not Available Not Available BD Ultra-Fin e Jennifer Pen Needle 32 gauge x 5/32 5 times a day E11.8 active Not Available Not Available No t Available Suprep Bowel Prep Kit 17.5 gram-3.13 gram-1.6 gram oral solution 01/07 completed Not Available Not Available Not Available Geritol Tonic with Ferrex 18 2.5 mg-50 mg-18 mg iron/15 mL oral liquid 10/01 completed Duration : 10 days;Med ication Descript ion: multivit anthony with iron; Route:or al; refills: 0; Quantity :30 liquid Not Available Not Available Not Available Vascepa 1 gram capsule Take 2 capsules twice a day by oral route. active Not Available Not Available No t Available Touxandero SoloStar U-300 Insulin 300 unit/mL (1.5 mL) subcutane ous pen 10/29 completed Not Available Not Available Not Available Tresiba FlexTouch U-200 insulin 200 unit/mL (3 mL) subcutane ous pen 32 units qam, 32 units qpm +2 units to prime needle Bid active Not Available Not Available No t Available Vitals Date Recorded Body height Body mass index (BMI) Body weight Heart rate Systolic And Diastolic Provider Name and Address Organization Details Last Updated DateTime 09/06/2018 165.1 cm 34.6 kg/m2 71879.21 g 70 /min 118/72 mm[Hg] [facility] 09/06/2018 09:35:04 Date Recorded Body height Body mass index (BMI) Body weight Heart rate Systolic And Diastolic Provider Name and Address Organization Details Last Updated DateTime 01/07/2018 165.1 cm 35.3 kg/m2 86621.58 g 70 /min 118/68 mm[Hg] [facility] 01/07/2018 11:11:44 Date Recorded Body height Body mass index (BMI) Body weight Heart rate Systolic And Diastolic Provider Name and Address Organization Details Last Updated DateTime 01/28/2017 165.1 cm 33.3 kg/m2 14084.47 g 70 /min 118/70 mm[Hg] Aleta Pierre [facility] 01/28/2017 10:32:22 Date Recorded Body height Body mass index (BMI) Body weight Heart rate Systolic And Diastolic Provider Name and Address Organization Details Last Updated DateTime 05/10/2018 165.1 cm 33.9 kg/m2 24596.84 g 66 /min 116/68 mm[Hg] Aleta Pierre [facility] 05/10/2018 10:35:33 Date Recorded Body height Body mass index (BMI) Body weight Heart rate Systolic And Diastolic Provider Name and Address Organization Details Last Updated DateTime 05/27/2017 165.1 cm 33.9 kg/m2 46125.84 g 72 /min 116/68 mm[Hg] Aleta Pierre [facility] 05/27/2017 09:11:46 Social History Question Answer Notes LastModified by Organizat ion Details LastModified Time Tobacco Smoking Status Never Smoker Aletajuan Pierre [facility] 10/01/2016 10:04:36 What Was The Date Of Your Most Recent Tobacco Screening? 09/06/2018 Information n ot available 08/08/2019 Sex: Unknown Functional Status None recorded. Mental Status None recorded. Family History Relationship Description Onset Age of this Age Resolved Age Notes LastModified by Organization Details LastModified Time Unspecified Relation Family history of malignant neoplasm [email or web address] Not available 2016 10:04:10 Unspecified Relation Diabetes mellitus [email or web address] Not available 2016 10:04:15 Unspecified Relation Cerebrovascu lar accident [email or web address] Not available 10:04:21 Unspecified Relation Hypertensive disorder [email or web address] Not available 2016 10:04:29 Medical History Condition Response Kidney Disease Y Diabetes Y Hypertension Y Gynecological HistoryNo gynecological history recorded. Obstetrics History GPAL:G 0 P 0 0 0 0 Past Encounters Encounter ID Performer Location Encounter Start Date Encounter Closed Date Diagnosis/Indication Diagnosis SNOMED-CT Code Diagnosis ICD10 Code Diagnosis IMO Codes Diagnosis Note [id number] LORIE MILLS APRN [facility] [address] [place] [address] 10/01/2016 09:50:44 10/01/2016 13:22:25 Uncontrolled type 1 diabetes mellitus 911813292 E10.65 E10.39 E10.21 E10.22 Diabetes Mellitus Type 1, with history of diabetic retinopath y, diabetic peripheral neuropathy , and early Charcot foot, diabetic nephropath y, and CKD with impaired control. A1C today is 7.6%. Goal A1C is less than 7%. We discussed risks associated with uncontroll ed diabetes including microvascu lar risks of diabetic retinopath y, diabetic neuropathy , and diabetic nephropath y and macrovascu lar risks of CAD, PAD, and stroke and agreed on the following treatment plan. RECOMMENDA TIONS: Check BG 4 times daily, to include ac meals and 2 hrs after evening meal. Goal BG 80-130, and less than 180 two hours after meals. Medication instructio ns: Continue Toujeo 32 units am and 32 units pm. Discussed that she has not lost any weight since starting Symlin. Her A1C initially improved but is now higher again. Agreed to discontinu e Symlin and increase Novolog to 8 units acb, 8 units acl and 12 units acs for one day and if her 2 hr pp readings are still elevated, increase to 10 units acb, 10 units acl and 14 units acs. . She already took Symlin this morning, so she will take Symlin with lunch and supper and then discontinu e. She will increase Novolog tomorrow. Rotation of injection sites discussed. Hypoglycem ia symptoms discussed. Explained that hypoglycem ia is considered BG less than 70 but symptoms may be felt at higher BG reading so if possible check BG first. Treatment for hypoglycem ia reviewed. Instructed to treat with 6 oz of juice or 3 glucose tablets (12 grams of carbs), repeat BG check 15 minutes later, and treat again if BG remains less than 70. Advised to always carry glucose tablets/or gel to treat hypoglycem ia if food or drink is not immediatel y available. DIET: Instructed to restrict carbohydra simón to less than 45 grams per meal and less than 15 grams per snack. EXERCISE: Encouraged to be active. 20-30 minutes of mild - moderate intensity exercise daily is recommende d, i.e. walking, stationary bike, etc. Exercise will help with insulin sensitizat ion. EDUCATION: Diabetic education/ nutrition counseling offered and declined at this time because she does not want to come to [place]. She will see if there is a class offered closer to her home. Discussed importance of daily foot care/self foot exam, and annual exam by provider. Instructed to wear diabetic shoes for protection of feet. Reminded to have annual diabetic eye exam to evaluate for diabetic retinopath y. She is up to date for eye exam. Urine microalbum in/protein testing is up to date. She has upper and lower dentures. She is concerned about fatigue and believes something is wrong with her thyroid. Her thyroid level was normal on 02/03/16 with TSH 2.98. I ordered labs to be repeated again d/t her symptoms but I have not gotten the results yet. We will call to see if the labs I ordered were sent to Nephrology . She asked what will happen if I take thyroid hormone even if my thyroid level is normal . I explained that she will not be prescribed thyroid hormone if her thyroid level is normal,but high thyroid levels can cause cardiac abnormalit ies such as atrial fibrillati on, lower bone loss, etc. She then asked about a diet pill that she took in the past but it made her dizzy. She plans to discuss this with her PCP. Patient verbalized understand ing of treatment plan. All questions answered. Follow up appointmen t in 4 months. Benign hypertension 1072 5009 I10 Goal BP is less than 140/90 mmHg. BP today 118/68. Continue current anti-hyper tensive medication which includes metoprolol 25 mg bid (per Endo), Lisinopril 30 mg daily and HCTZ 12.5 mg daily. Hyperlipidemia 78143262 E78.5 Continue pravastati n 40 mg qhs and fish oil 1,000 bid pending labs. Diet and exercise discussed. Goal LDL is less than 100 mg/dl. Obesity 259447007 E66.9 Impaired control. BMI 33.6. Encouraged low calorie/ca rb intake and 20-30 minutes of mild to moderate daily activity to help with weight loss. [id number] LORIE MILLS APRN [facility] [address] [place] [address] 01/28/2017 09:12:42 01/28/2017 14:28:25 Uncontrolled type 2 diabetes mellitus [id number] E11.65 Diabetes Mellitus Type 2, with diabetic retinopath y, peripheral neuropathy and diabetic nephropath y/CKD with impaired but fairly stable control. A1C today is 7.6%. Goal A1C is less than 7%. We discussed risks associated with uncontroll ed diabetes and agreed on the following treatment plan. RECOMMENDA TIONS: Check BG 4 times daily, to include ac meals and 2 hrs after evening meal . Goal BG 80-130, and less than 180 two hours after meals. Medication instructio ns: Continue same insulin as noted above. Rotation of injection sites discussed. Hypoglycem ia symptoms and treatment reviewed. Advised to always carry glucose tablets (4 carbs per tablet) or gel to treat hypoglycem ia if food or drink is not immediatel y available. DIET: Instructed to restrict carbohydra simón to less than 45 grams per meal and less than 15 grams per snack. EXERCISE: Encouraged to be active. 20-30 minutes of mild - moderate intensity exercise daily is recommende d, i.e. walking, stationary bike, etc. EDUCATION: nutrition counseling recommende d but declines at this time d/t taking care of her mother. Instructed to wear diabetic shoes for protection of feet. Eye exam is not up to date and was reminded to make an appointmen t. Urine microalbum in/protein testing is up to date with [facility]. Dental exam/teeth cleaning is up to date. Patient verbalized understand ing of treatment plan. All questions answered. Follow up appointmen t in 4 months. Hyperlipidemia 12251210 E78.5 Slightly improved but triglyceri addis remain elevated. Instructed to continue pravastati n 80 mg qhs. She had stopped taking OTC fish oil because she did not see a benefit. Explained that high triglyceri addis are a risk for pancreatit is. Agreed to a trial of Lovaza 1 gram 2 capsules bid if covered by her insurance. If Lovaza is not covered, recommend that she restart OTC fish oil 1,000 2 capsules bid. Diet and exercise discussed. Goal LDL is less than 100 mg/dl. If she is taking Lovaza or fish oil, will repeat labs in a few months. Benign hypertension 1072 5009 I10 Goal BP is less than 140/90 mmHg. BP today 118/68. Continue current anti-hyper tensive medication : metoprolol 25 mg bid (per Endo), Lisinopril 30 mg daily and HCTZ 12.5 mg daily (per other provider). Obesity 742634537 E66.9 Impaired control. BMI 33.6. Encouraged low calorie/ca rb intake and 20-30 minutes of mild to moderate daily activity to help with weight loss. [id number] LORIE MILLS APRN [facility] [address] [place] [address] 05/27/2017 08:59:52 05/27/2017 11:34:52 Uncontrolled type 1 diabetes mellitus [id number] E10.65 E10.39 E10.21 E10.22 E11.40 Diabetes Mellitus Type 1, with diabetic retinopath y, diabetic peripheral neuropathy with early Charcot foot, diabetic nephropath y, and CKD with impaired and worsening control. A1C today is 8.2%. Goal A1C is less than 7%. RECOMMENDA TIONS: Discussed risks associated with uncontroll ed diabetes and agreed on the following plan: She was instructed to check BG 4 times daily, to include ac meals and 2 hrs after evening meal. Goal BG 80-130, and less than 180 two hours after meals. Medication instructio ns: Continue Toujeo 32 units am and 32 units pm. Continue Novolog 10 units before breakfast, 14 units before lunch and increase to 17 units before supper. Hypoglycem ia symptoms and treatment discussed. NOTE: at the end of the visit she mentioned that her insurance is not going to cover Toujeo in June but that she has enough to last her until her next appt so she does not need RX today. Her insurance will cover Tresiba or Basaglar, so will plan to change to Tresiba when she needs her next refill. She will call if it is needed prior to her next appt. Discussed insulin pump. She has DM type 1 and the pump would be covered by Medicare but not the closed loop system that she is interested in. She will be given some informatio n to review about a Medtronic pump and the DEXCOM CGM and if interested in a pump, we will discuss further at her next visit. If she is only interested in CGM, she will call the representa tive for the DEXCOM to initiate the process. DIET: Instructed to restrict carbohydra simón to less than 45 grams per meal and less than 15 grams per snack. EXERCISE: Encouraged to be active. 20-30 minutes of mild - moderate intensity activity/ exercise daily is recommende d EDUCATION: Diabetic education/ nutrition counseling has been completed in the past. Reminded to find a local DM nutrition class. Continue to wear diabetic shoes for protection of feet.She is not up to date for eye exam and was reminded to make an appointmen t.Urine microalbum in/protein testing is followed by [facility].Dental exam: She has upper and lower dentures. She asked for RX for Esgic Plus for migraines which I declined to refill. Advised to get from PCP. Patient verbalized understand ing of treatment plan. All questions answered. Follow up appointmen t in 4 months. Benign hypertension 1072 5009 I10 Goal BP is less than 140/90 mmHg. BP today 116/68. Continue current anti-hyper tensive medication : metoprolol 25 mg bid (per Endo) and Lisinopril 30 mg daily and HCTZ 12.5 mg daily (per other provider). Hyperlipidemia 41665264 E78.5 Continue pravastati n 80 mg qhs and omega 3- 1 gram 2 capsules bid. Fasting lipids. She will be given a lab order to have done at a facility closer to her home. . [id number] LORIE MILLS APRN [facility] [address] [place] [address] 01/07/2018 10:40:51 01/07/2018 12:33:35 Uncontrolled type 1 diabetes mellitus [id number] E10.65 E10.39 E10.21 E10.22 E11.40 Diabetes Mellitus Type 1, complicate d by diabetic retinopath y, diabetic peripheral neuropathy with early Charcot foot, diabetic nephropath y, and CKD with impaired and worsening control. A1C today is 8.3%. RECOMMENDA TIONS: Discussed risks/comp lications associated with uncontroll ed diabetes and agreed on the following plan: She was instructed to check BG 4 times daily, to include ac meals and 2 hrs after evening meal. Medication instructio ns: Continue Tresiba U200 - 32 units am and 32 units pm. Continue Novolog 10 units before breakfast, 14 units before lunch and 17 units before supper Plus scale as noted above. Hypoglycem ia symptoms and treatment discussed. Discussed insulin pump and DEXCOM CGM last visit and is not interested . DIET: Instructed to restrict carbohydra simón to less than 45 grams per meal and less than 15 grams per snack. EXERCISE: Encouraged 20-30 minutes of exercise daily, as tolerated. EDUCATION: Diabetic education/ nutrition counseling has been completed in the past. MNT fabricio rodriguez Reminded again to find a local DM nutrition class because she does not want to come to [place]. Continue to wear diabetic shoes for protection of feet. She was given RX for a new pair today.She is up to date for eye exam.Urine microalbum in/protein testing is followed by [facility].Dental exam: She has upper and lower dentures. Follow up appointmen t in 4 months. Benign hypertension 1072 5009 I10 BP today 118/68. Continue current anti-hyper tensive medication : metoprolol 25 mg bid (per Endo) and Lisinopril 30 mg daily and HCTZ 12.5 mg daily (per other provider). Hyperlipidemia 91416639 E78.5 08/16/17 - chol 449, Trig 952, HDL 39. Unable to determine LDL. Change to Rosuvastat in 20 mg qhs and continue omega 3- (generic Lovaza), 1 gram 2 capsules bid. Start Zetia 10 mg daily.Fast ing labs before next visit (in 4 months). Lab order given to patient. Obesity 722012079 E66.9 Impaired control. BMI 35.3. Discussed low calorie/ca rb intake and 20-30 minutes of mild to moderate daily activity to help with weight loss. Handout provided. [id number] LORIE MILLS APRN [facility] [address] [place] [address] 05/10/2018 09:38:20 05/10/2018 16:03:09 Uncontrolled type 1 diabetes mellitus [id number] E10.65 E10.39 E10.21 E10.22 E11.40 Diabetes Mellitus Type 1, with multiple complicati ons including: diabetic retinopath y, diabetic peripheral neuropathy with Charcot foot, and diabetic nephropath y/ CKD with impaired but improved control. A1C today is 8.1%. RECOMMENDA TIONS:Dm nded of risks/comp lications associated with uncontroll ed diabetes and agreed on the following plan: Continue to check BG 4 times daily, to include ac meals and 2 hrs after evening meal. Medication instructio ns: Continue Tresiba U200 - 32 units am and 32 units pm. Continue Novolog 10 units before breakfast, 14 units before lunch and increase to 19 units before supper. She seldom needs to add the scale, so it will be discontinu ed. Hypoglycem ia symptoms and treatment discussed. Handout provided. Not interested in insulin pump or DEXCOM CGM. DIET: Instructed to restrict carbohydra simón to less than 45 grams per meal and less than 15 grams per snack. EXERCISE: Recommend 20-30 minutes of exercise daily, as tolerated. EDUCATION: Diabetic education/ nutrition counseling has been completed in the past. MNT recommende d but has declined coming to [place] for a class. Reminded to check on a local class which would be closer to where she lives. Continue to wear diabetic shoes for protection of feet.She is up to date for eye exam.Urine microalbum in/protein testing is followed by [facility].Dental exam not appropriat e - She has upper and lower dentures. Follow up appointcorine [facility] in 4 months. Benign hypertension 1072 5009 I10 BP today 116/68. Continue same anti-hyper tensive medication : metoprolol 25 mg bid (per Endo) and Lisinopril 30 mg daily and HCTZ 12.5 mg daily (per other provider). Hyperlipidemia 98534098 E78.5 Continue Rosuvastat in 20 mg qhs, omega 3- (generic Lovaza), 1 gram 2 capsules bid, and ezetimibe 10 mg daily.Will call for a copy of the labs that were recently done at [facility]. ADDENDUM: chol 98, HDL 40, Trig 114, LDL 35, AST 75 (normal 15-37), ALT 141 (normal 12-78). Will decrease Rosuvastat in to 10 mg qhs and repeat labs in 2 months. Lab order will be mailed to Ms. Romero. Obesity 388783497 E66.9 Improved - BMI 33.9. Discussed low calorie/ca rb intake and 20-30 minutes of daily exercise. Handout provided. [id number] LORIE MILLS APRN [facility] [address] [place] [address] 09/06/2018 08:58:17 09/06/2018 10:25:46 Benign hypertension 65986188 I10 BP today 118/72. Continue metoprolol 25 mg bid (per Endo) and Lisinopril 20 mg bid and HCTZ 12.5 mg daily (per other provider). Uncontroll ed type 1 diabetes mellitus [id number] E10.65 E10.39 E10.21 E10.22 E11.40 Diabetes Mellitus Type 1, complicate d by diabetic retinopath y, diabetic peripheral neuropathy with Charcot foot, and diabetic nephropath y/ CKD with impaired control. A1C today is 8.2%. RECOMMENDA TIONS:Dm nded of risks/comp lications associated with uncontroll ed diabetes and agreed on the following plan: Continue to check BG 4 times daily, to include ac meals and 2 hrs after evening meal. Medication instructio ns: Continue Tresiba U200 - 32 units am and 32 units pm. Continue Novolog 10 units before breakfast, 14 units before lunch and increase to 21 units before supper. Hypoglycem ia symptoms and treatment discussed. Handout provided. Remains uninterest ed in insulin pump and DEXCOM CGM. DIET: Instructed to restrict carbohydra simón to less than 45 grams per meal and less than 15 grams per snack. EXERCISE: Recommend 20-30 minutes of exercise daily, as tolerated. EDUCATION: Diabetic education/ nutrition counseling has been completed in the past. MNT recommende d but has declined coming to [place] for a class. Recommend that she attend a class closer to her home. Reminded to wear diabetic shoes for protection of feet.She is up to date for eye exam.Urine microalbum in/protein testing is followed by [facility].Dental : She has upper and lower dentures. Follow up appointcorine [facility] in 4 months. Hyperlipidemia 79786516 E78.5 05/03/18 - chol 98, HDL 40, Trig 114, LDL 35, AST 75 (15-37), ALT 141 (12-78). Rosuvastat in was decreased to 10 mg daily. Labs repeated on 07/14/18: chol 118, HDL 43, Trig 135, LDL 48, AST 25, ALT 55 (Improved) . Continue Rosuvastat in 10 mg qhs, omega 3- (generic Lovaza), 1 gram 2 capsules bid, and ezetimibe 10 mg daily. Advised to get OTC fish oil 1,000 mg bid acb and acs if insurance does not cover omega-3. Obesity [id number] E66.9 Not improved - BMI 34.6. Discussed low calorie/ca rb intake and 20-30 minutes of daily exercise. Handout provided. Health Concerns Section Related Observation LastModified by Organization Bharti ls LastModified Time None Recorded Concern Status LastModified by Organization Details LastModified Time None Recorded Advance Directives Directive None Recorded Payers Insurance Date Sequence Insurance Name Policy Number Policy Burns Covered Member ID Burns Member ID Guarantor Name 11/08/2024 2 MEDICAID-[facility] - FFS/TRADITIO NAL Janee Romero [id number] Janee Romero 11/08/2024 1 [place] Janee Romero [id number] Janee Romero Notes Date Note Type Note Provider Name and Address Organization Details Recorded Time 01/28/2017 text/html Ms. Romero is a 67 year old female with a past medical history as detailed above, and is being seen today for follow up of (1)DM type 1 diagnosed at age 32 , (2)hypertension, and (3)hyperlipidemia. She feels well today with no significant complaint. 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 She felt fine. She went to [facility] and her sodium was 142. Current diabetic medication: Toujeo 32 units am and 32 units pm, Novolog 10 acb, 14 acl and 14 acs plus scale ac meals: <100=0, 101-140=1, 141-180=2, 181-220=3, 221-260=4, >260=5. She was using a One Touch meter but could not get the strips because all the mail order supplies she called told her they did not have them. She gets her medications from [facility] and has not checked with them or with the local [facility] pharmacy. She brought written BG readings today which shows fasting ranges from 88 - 180 with most readings in the lower 100 range. Her BG before lunch readings ranged 69 - 160, before supper 75-162, and at bedtime 65-210. She denies frequent hypoglycemia. Her random glucose is 170 about 2 hours after breakfast. Her last A1C was 7.6% and current A1C has remained the same at 7.6%. Diet: 3 meals daily, has improved over the supper because she is eating more garden vegetables. She tries to follow a low carb diet Exercise: more walking, gardening Ms. Romero has a history of diabetic retinopathy. Plans to make appointment with Dr. Dias in [place]. Eye exam remains past due. She has diabetic peripheral neuropathy, wears DM shoes, and is followed by podiatry prn (Dr. Gilbert). She has a history of diabetic nephropathy, and CKD, and is followed by [facility] every 4-6 months. Hypertension -YES, SERGIO-I or ARB -YES-lisinopril, Hyperlipidemia -YES, on statin therapy -YES-pravastatin. Review of labs: see above LORIE MILLS, SPECIMEN COLLECTOR [address] [place], [phone], [facility] 01/28/2017 12:00:16 05/27/2017 text/html Ms. Romero is a 67 year old female with a past medical history as detailed above. She is being seen today for follow up of (1) DM type 1 diagnosed at age 32, (2)hypertension, and (3)hyperlipidemia. She reports that she has been under a lot of stress trying to help her 92 year old mother who has Alzheimer's. She has noticed that her BG increases when she is more stressed. Her mother lives alone and it takes almost an hour to get to her house, so Ms. Romero is needing to check on her frequently. Current diabetic medication: Toujeo 32 units am and 32 units pm, Novolog 10 units acb, 14 units acl and 14 units acs plus scale: <100-0, 101-140=1, 141-180=2, 181-220-3, 221-260=4 and >260=5. Reviewed written BG readings which shows that she has been checking BG 4 x daily. Fasting ranges from 86-210, before lunch 69-168, before supper 76-210 and at bedtime 139-237. Her last A1C was 7.6% and current A1C has increased to 8.2%. Diet: 3 meals daily, seldom eats bedtime snack. She was supposed to find a local MNT class but has not done so yet. Does not want to come to [place]. Exercise: remains active and walks a lot, uses hand weights Diabetic retinopathy: NO. Last eye exam was over 2 years ago. Diabetic peripheral neuropathy: YES. Wears DM shoes: YES. Currently followed by podiatry. Diabetic nephropathy: YES. CKD: YES. Followed by [facility]. She had a recent visit and was told her labs were normal except potassium was slightly elevated. Hypertension -YES, SERGIO-I or ARB -YES-lisinopril, Hyperlipidemia -YES, on statin therapy -YES-pravastatin. Triglycerides remained elevated last visit and she was given RX to start Lovaza. She is taking generic Pomona -3 two capsules bid. LORIE MILLS, SPECIMEN COLLECTOR [address] [place], [phone], [facility] 05/27/2017 12:41:28 01/07/2018 text/html Ms. Romero is 67 years old with a past medical history as noted above. She is seen today for follow up of (1) DM type 1 diagnosed at age 32, (2)hypertension, and (3)hyperlipidemia. Current diabetic medication: Changed from Toujeo to Tresiba U200 about one month ago - 32 units am and 32 units pm, Novolog 10 units acb, 14 units acl and 17 units acs plus scale: <100-0, 101-140=1, 141-180=2, 181-220-3, 221-260=4 and >260=5. Reviewed written BG readings which shows that she has been checking BG 4 x daily. For the past two weeks - fasting BG ranges from 80-210, before lunch 60-212, before supper 75-448 and at bedtime 101-398. The high readings were just a few days ago after getting a steroid injection in her left knee. Her last A1C had increased from 7.6% to 8.2% and current A1C has increased to 8.3%. Diet: 3 meals daily, seldom eats bedtime snack. She still has not attended a diabetic nutrition class d/t being so busy with other appointments, i.e. eye exam, mammogram (which was abnormal) and had to have a repeat mammogram and US, then a fine needle aspiration of an enlarged lymph node on the left with results being indeterminant but could be lymphoma or thought it might be d/t an infection. She has an appointment to see an oncologist on 01/20/18 (Dr. Leone). Exercise: not as active recently d/t left knee pain Diabetic retinopathy: YES. Previous eye exam was 4 years ago. Had recent exam with Dr. Ragsdale (September or October 2017) and was noted to have diabetic retinopathy which did not require any treatment at this time. Diabetic peripheral neuropathy: YES. Wears DM shoes: YES. Currently followed by podiatry - Dr. Gilbert. Diabetic nephropathy: YES. CKD: YES. Followed by [facility]. Has been started on calcitriol and doxazosin. HCTZ has been decreased to every other day. Hypertension -YES, SERGIO-I or ARB -YES-lisinopril, Hyperlipidemia -YES, on statin therapy -YES-pravastatin and Pomona 3 2 capsules bid. However, she decreased pravastatin to 40 mg about 6 weeks ago because she was having myalgia which has improved since she decreased the dose. Labs: She brought a copy of labs dated 08/16/17 that was ordered by her primary care physician: HGb 13.9, BUN 36, CR 1.65, Chol 449, trig 952, HDL 39, unable to calculate LDL. Urine Protein/creatinine ratio= 1693. LORIE MILLS, SPECIMEN COLLECTOR [address] [place], [phone], [facility] 01/07/2018 12:54:11 05/10/2018 text/html Ms. Romero is 68 years old with a past medical history as noted above. She is being seen today for follow up of (1) DM type 1 diagnosed at age 32, (2)hypertension, and (3)hyperlipidemia. She reports that she was recently diagnosed with CLL, stage 1. No treatment is recommended at this time. An abnormality was initially noted when she had a mammogram but there was no mass in her breast or lungs. She was referred to Dr. Leone (Oncology). PET scan was normal but labs showed CLL. Current diabetic medication: Tresiba U200 - 32 units am and 32 units pm, Novolog 10 units acb, 14 units acl and 17 units acs plus scale: <100-0, 101-140=1, 141-180=2, 181-220-3, 221-260=4 and >260=5. Reviewed written BG readings which shows that she has been checking BG 4 x daily. Fastin, 142, 161, 175, 71., 101, 147. Before lunch: 160, 135, 77, 117, 111, 151, 78. Before supper 149, 159, 147, 72, 118, 159. and 2 hr after supper: 153, 175, 169, 155, 182, 210, 180. The only time her BG is consistently elevated is 2 hr after supper. Her last A1C was 8.3%. Her current A1C has decreased only slightly to 8.1%. Diet: 3 meals daily, seldom eats bedtime snack. Exercise: none at present Diabetic retinopathy: YES. Dr. Ragsdale - last eye exam was about 6 months ago and was noted to have diabetic retinopathy which did not require any treatment. Next appt 06/2018. Diabetic peripheral neuropathy: YES. Wears DM shoes: YES. Currently followed by podiatry - Dr. Gilbert. Diabetic nephropathy: YES. CKD: YES. Followed by [facility]. Last appt was a few weeks ago. Hypertension -YES, SERGIO-I or ARB -YES-lisinopril, Hyperlipidemia -YES, on statin therapy -YES-rosuvastatin and Pomona 3 2 capsules bid. Changed to Rosuvastatin a few months ago d/t myalgia with Pravastatin. She had fasting labs about one week ago at [facility] but I have not received the results yet. LORIE MILLS, SPECIMEN COLLECTOR [address] [place], [phone], [facility] 05/10/2018 12:37:30 09/06/2018 text/html Ms. Romero is 68 years old with a medical history as noted above. She is seen today for follow up of (1) DM type 1 diagnosed at age 32, (2)hypertension, and (3)hyperlipidemia. She reports that she has been in her usual state of health. Continues to have a lot of stress related to her mother but has not been ill herself. Current diabetic medication: Tresiba U200 - 32 units am and 32 units pm, Novolog 10 units acb, 14 units acl and 19 units acs.Reviewed written BG readings which shows that she has been checking BG 4 x daily. Fastin, 113, 163, 139, 162. Before lunch: 111, 129, 144, 168, 115, 137. Before supper 169, 175, 150, 82, 136, 102, 184. and 2 hr after supper: 157, 168, 167, 122, 188, 180, 142, 169. Again, the only time her BG is consistently elevated is 2 hr after supper. Her last A1C was 8.2%. Her current A1C has increased to 8.2%. Diet: 3 meals daily, seldom snacks Exercise: none at present Diabetic retinopathy: YES. Dr. Ragsdale - yearly exam. Has appt next week. Diabetic peripheral neuropathy: YES. Wears DM shoes: YES. Currently followed by podiatry - Dr. Gilbert. Diabetic nephropathy: YES. CKD: YES. Followed by [facility]. Has appt in a couple of weeks. Hypertension -YES, SERGIO-I or ARB -YES-lisinopril, Hyperlipidemia -YES, on statin therapy -YES-rosuvastatin , Zetia, and Pomona 3 - 2 capsules bid. LFTs were elevated: AST 75, ALT 141 on 05/03/18. Rosuvastatin was decreased from 20 mg to 10 mg daily and LFTs improved (AST 25, ALT 55 on 07/14/18). Insurance is not going to cover Pomona 3 RX any longer. LORIE MILLS, SPECIMEN COLLECTOR [address] [facility], [place], [phone], [facility] 09/06/2018 12:28:29 OBGyn Episode No OBEpisode recorded.
[2025-05-11 17:32] VITALS: BP 149/56; PULSE 81; RESP 18; TEMP 36.8; O2SAT 97; BMI 26.4
--- OUTSIDE RECORDS SUMMARY | 2025-05-11 17:32 | XMS_ITS | Clinical Summary ---
Author Organization [facility] Address [address] [place] [address] Care Team Providers Care Collar Fuser Name Role Phone Kinza Bennett MD Primary Care Provider + Allergies Active Allergy Reactions Criticality Noted Date Comments Pravastatin Myalgia Medium 06/02/2019 Medications Unable to find 1 each 1 (One) Time. exetimibe 10mg qd Active hydrochlorothi azide (MICROZIDE) 12.5 MG capsule Take 1 capsule by mouth Daily. Active doxazosin (CARDURA) 1 MG tablet Take 1 tablet by mouth 2 (Two) Times a Day. Active lisinopril (PRINIVIL,ZEST RIL) 30 MG tablet Take 1 tablet by mouth Daily. 1 qam 4 9 Active metoprolol tartrate (LOPRESSOR) 25 MG tablet Take 1 tablet by mouth 2 (Two) Times a Day. 0 Active fluticasone (FLONASE) 50 MCG/ACT nasal spray fluticasone propionate 50 mcg/actuation nasal spray,suspension as needed Active butalbital-sergio taminophen-caf feine (FIORICET, ESGIC) 50-325-40 MG per tablet As needed Active Calcium Carbonate+Ashley min D 600-200 MG-UNIT tablet Calcium 600 + D(3) 1 po daily Active Cholecalcifero l (Vitamin D3) 1.25 MG (55901 UT) capsule Vitamin D3 2000 units daily po Active rosuvastatin (CRESTOR) 10 MG tablet TAKE 1 TABLET DAILY 90 tablet 3 4 Active Insulin Degludec (Tresiba FlexTouch) 200 UNIT/ML solution pen-injector pen injection INJECT 42 UNITS SUBCUTANEOUSLY TWO TIMES A DAY. 36 mL 3 4 Active ezetimibe (ZETIA) 10 MG tablet TAKE 1 TABLET DAILY 90 tablet 3 4 Active Continuous Glucose Pattern Vault Clerk (Dexcom G7 Pattern Vault Clerk) device Use 1 each See Admin Instructions. 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 Assessment & Plan (07/29/2023 1:08 PM EST): Continue ophthalmology follow up. Assessment & Plan (01/07/2023 9:26 AM EDT): Ophthalmology follow up. Uncontrolled type 1 diabetes mellitus with hyper glycemia 07/25/2020 Assessment & Plan (02/08/2024 11:37 AM EDT): Diabetes is improving with treatment. Continue current treatment regimen. Diabetes will be reassessed in 6 months. DexCom G7 CGM was downloaded today. Data was reviewed from 01/26/24 to 02/08/24. This showed better overnight glucose. Some mild postprandial spikes but no patterns for insulin adjustments. Time in range was 63%. Assessment & Plan (07/29/2023 1:13 PM EST): Diabetes is worsening. Continue current treatment regimen. Diabetes will be reassessed in 3 months. DexCom G7 CGM was downloaded today. Data was reviewed from 07/16/23 to 07/29/23. This showed better overnight control. Having some higher glucose readings during the day. Encouraged her to titrate up the mealtime insulin. Assessment & Plan (01/07/2023 9:33 AM EDT): Diabetes is improving with treatment. Continue current treatment regimen. Diabetes will be reassessed in 3 months. She is interested in getting DexCom G7. She will contact the DME company to have them send form to us. Assessment & Plan (07/14/2022 2:02 PM EST): Diabetes is unchanged. A1c better but may be falsely low due to recent transfusion. Recent fasting FSBS at goal. Continue current treatment regimen. But be more aggressive with mealtime insulin. Diabetes will be reassessed in 3 months. Retinal photos were performed today. This revealed mod NPDR OU and macular edema OD. Will refer to retina specialist. Assessment & Plan (02/24/2022 1:15 PM EDT): Diabetes is worsening. A1c above goal at 8.2%. Continue current treatment regimen. But increase insulin. Diabetes will be reassessed in 3 months. Assessment & Plan (04/23/2021 4:04 PM EDT): Diabetes is worsening. A1c increased to 7.7%. Continue current treatment regimen. We discussed using CGM today. Will send Rx for FreeStyle Eleazar 2 to her mail order pharmacy to see if this is covered. Diabetes will be reassessed in 3 months. Retinal photos were performed today. This revealed no evidence of diabetic retinopathy. Assessment & Plan (07/25/2020 10:45 AM EST): Diabetes is improving with treatment. Continue current treatment regimen. Diabetes will be reassessed in 3 months. A1c much better. She has changed injection sites from abdomen to arms and legs. FSBS have improved dramatically. Type I diabetes mellitus wit h renal manifestations, uncontrolled 07/25/2020 Assessment & Plan (04/22/2021 11:54 AM EDT): Continue SERGIO-I. Continue nephrology follow up. Assessment & Plan (07/25/2020 10:46 AM EST): Continue lisinopril. Continue follow up with nephrology. She asked about SGLT-2 inhibitor treatment on behalf of the director sterile processing. We discussed that these aren't approved for people with type I DM yet. Also she reports her eGFR was 30. The SGLT-2 inhibitors don't work well with eGFR that low. CRI (chronic renal insufficiency) 07/25/2020 Assessment & Plan (02/08/2024 11:31 AM EDT): Continue nephrology follow up. Assessment & Plan (07/29/2023 1:07 PM EST): Trying to track down recent labs. Continue nephrology follow up. Assessment & Plan (01/07/2023 9:31 AM EDT): Continue nephrology follow up. Assessment & Plan (02/24/2022 1:08 PM EDT): Continue nephrology follow up. Benign hypertension 07/25/2020 Assessment & Plan (02/08/2024 11:29 AM EDT): Hypertension is stable and controlled Continue current treatment regimen. Blood pressure will be reassessed in 6 months. Assessment & Plan (07/29/2023 1:07 PM EST): Hypertension is unchanged. Continue current treatment regimen. Blood pressure will be reassessed at the next regular appointment. Assessment & Plan (01/07/2023 9:23 AM EDT): Hypertension is unchanged. Continue current treatment regimen. Blood pressure will be reassessed at the next regular appointment. Assessment & Plan (07/07/2022 10:42 AM EST): Hypertension is unchanged. Continue current treatment regimen. Blood pressure will be reassessed at the next regular appointment. Assessment & Plan (02/24/2022 1:08 PM EDT): Hypertension is unchanged. Continue current treatment regimen. Blood pressure will be reassessed at the next regular appointment. Assessment & Plan (04/22/2021 11:55 AM EDT): Hypertension is improving with treatment. Continue current treatment regimen. Blood pressure will be reassessed at the next regular appointment. Assessment & Plan (07/25/2020 10:46 AM EST): Hypertension is unchanged. Continue current treatment regimen. Blood pressure will be reassessed in 3 months. Mixed hyperlipidemia 07/25/2020 Assessment & Plan (02/08/2024 11:30 AM EDT): Continue statin and ezetimibe. Plan to check lipids next visit. Assessment & Plan (07/29/2023 1:08 PM EST): Continue statin. Trying to track down recent labs. Assessment & Plan (01/07/2023 9:25 AM EDT): Continue stain and ezetimibe. Assessment & Plan (07/07/2022 10:42 AM EST): Continue statin and ezetimibe. Assessment & Plan (02/24/2022 1:08 PM EDT): Continue statin and ezetimibe. Assessment & Plan (04/22/2021 12:02 PM EDT): Continue statin and ezetimibe. Assessment & Plan (07/25/2020 10:47 AM EST): Continue statin and ezetimibe. She will have recent lipid panel faxed to us. CLL (chronic lymphocytic leukemia) 01/20/2018 Cancer Staging:Clinical:Modified Valle Stage I(Modified Valle risk: Intermediate, Lymphocytosis: Present, Adenopathy: Present, Organomegaly: Absent, Anemia: Absent, Thrombocytopenia: Absent) - Signed by Addi Leone MD on 02/08/2018 Encounters Date Type Department Care Team Description 05/04/2025 Telephone [facility] ENDOCRINOLOGY [address] [facility] [address] [place] [address] Jostin Collins MD 05/03/2025 Telephone [facility] ENDOCRINOLOGY [address] [facility] [address] [place] [address] Lester Fine MD MEDICAL RECORDS 05/03/2025 [facility] ENDOCRINOLOGY [address] [place] [address] Lester Fine MD 03/28/2025 [facility] ENDOCRINOLOGY [address] [place] [address] Lester Fine MD 02/12/2025 [facility] ENDOCRINOLOGY [address] [facility] [address] [place] [address] Lester Fine MD TRANSFER OF CARE from Last 3 Months Immunizations Immunization Administration Dates Next Due COVID-19 (MODERNA) 1st,2nd,3 rd Dose Monovalent 02/20/2021,08/15/2020,07/18/2020 Fluzone High-Dose 65+YRS 04/04/2019,09/2017,04/09/2017,04/09,03/18/2015 Hepatitis A 01/02/2019,06/01/2018 Pneumococcal Conjugate 13-Va lent (PCV13) 04/09/2016 Pneumococcal Polysaccharide (PPSV23) 09/03/2017, 06/21/2011 Td, Not Adsorbed 04/20/2007 Zostavax 04/16/2014 Family History Medical History Relation Name Comments Heart disease Father COPD Mother Lung disease Mother Diabetes Son Hyperlipidemia Son Breast cancer Neg Hx Ovarian cancer Neg Hx Relation Name Status Comments Brother brain tumor not cancer Alive Cousin unknown cancer Alive Father Mother Son Social History Tobacco Use Types Packs/Day Years Used Date Smoking Tobacco: Never Smokeless Tobacco: Never Tobacco Cessation:Counseling Given: Not Answered Alcohol Use Standard Drinks/Week Comments No 0 (1 standard drink = 0.6 oz pur e alcohol) PHQ-2 Answer Date Recorded Retired Total Score 0 12/04/2019 Abuse Screen Answer Date Recorded Unsafe at Home or Work/School Not on file 10 /04/2023 Feels Threatened by Someone? Not on file [...] Sign Reading Time Taken Comments Blood Pressure 118/70 02/08/2024 11:15 AM EDT Pulse 67 02/08/2024 11:15 AM EDT Temperature 36.3 C (97.3 F) 07/25/2020 9:51 AM EST Respiratory Rate 18 12/04/2019 10:22 AM EDT Oxygen Saturation 100% 02/08/2024 11:15 AM EDT Inhaled Oxygen Concentration - - Weight 84.4 kg (186 lb) 02/08/2024 11:15 AM EDT Height 165.1 cm (5' 5 ) 02/08/2024 11:15 AM EDT Body Mass Index 30.95 02/08/2024 11:15 AM EDT Plan of Treatment Upcoming Encounters Date Type Department Care Team (Late st Contact Info) Description 05/24/2025 10:45 AM EST Office Visit [facility] ENDOCRINOLOGY [facility] [address] Jostin Collins MD [address] [facility] [address] [place] [address] Health Maintenance Due Date Last Done Comments COLOGUARD 1995 COLON CANCER SCREENING 5 YEA R SIGMOIDOSCOPY 1995 CT COLONOGRAPHY 1995 FECAL OCCULT BLOOD TEST 1995 FIT Testing (1 year) 1995 DIABETIC FOOT EXAM 01/25/2014 01/25/2013, 11/30/2012 ZOSTER VACCINE (1 of 2) 06/11/2014 04/16/2014 HEPATITIS C SCREENING 01/20/2018 DXA SCAN 09/17/2019 09/16/2017 ANNUAL WELLNESS VISIT 04/18/2021 04/18/2020 , 04/04/2019, 09/03/2017 LIPID PANEL 06/26/2023 06/26/2022, 01/21, 04/11/2020, Additional history exists URINE MICROALBUMIN-CREATININ E RATIO (uACR) 07/29/2024 07/29/2023, 07/23/2023 HEMOGLOBIN A1C 08/10/2024 02/08/2024, 02/0 01/2024, 01/07/2023, Additional history exists INFLUENZA VACCINE 01/19/2025 04/09/2023, , 04/09/2023, Additional history exists RSV Vaccine - Adults (1 - 1- dose 75+ series) 2025 COVID-19 Vaccine (6 - 2024-2 6 season) 2025 03/10/2022, 10/07/2021, 02/20/2021, Additional history exists DIABETIC EYE EXAM 11/02/2025 11/02/2024, , 08/12/2022, Additional history exists COLONOSCOPY 11/30/2027 11/29/2017 COLORECTAL CANCER SCREENING 11/30/2027 TDAP/TD VACCINES (2 - Td or Tdap) 04/02/2032 022, 04/20/2007 Pneumococcal Vaccine 50+ Completed 018, 04/09/2016, 06/21/2011, Additional history exists MAMMOGRAM Discontinued 12/24/2017, 0711/2017, 11/29/2017, Additional history exists Procedures Procedure Name Priority Date/Time Associated Diagnosis Comments SCANNED - EYE EXAM 11/02/2024 POCT GLYCOSYLATED HEMOGLOBIN (HGB A1C) Routine 02/08/2024 11:23 AM EDT Uncontrolled type 1 diabetes mellitus with hyperglycemia MICROALBUMIN / CREATININE URINE RATIO Routine 07/29/2023 1:18 PM EST Uncontrolled type 1 diabetes mellitus with hyperglycemia MAMMO DIAGNOSTIC DIGITAL TOMOSYNTHESIS BILATERAL W CAD Routine 12/24/2017 9:20 AM EDT Localized enlarged lymph nodes from Last 3 Months or Most Recently Relevant to Health Maintenance Results * EYE EXAM SCANNED (11/02/2024) Anatomical Region Laterality Modality Other Chayito Hamilton MD CHART REVIEW TABS Final Result * (ABNORMAL) POC Glycosylated Hemoglobin (Hb A1C) (02/08/2024 11:23 AM EDT) Hemoglobin A1C 6.8(A) 4.5 - 5.7 % [facility] Lot Number [id number] [facility] Expiration Date 10/06/25 [facility] Blood 02/08/2024 11:2 3 AM EDT Lester Fine MD POINT OF CARE TEST ORDERA BLES Final Result [facility]
[address] [place] [address], * (ABNORMAL) Microalbumin / Creatinine Urine Ratio - Urine, Clean Catch (07/29/2023 1:18 PM EST) Microalbumin/C reatinine Ratio 2,139.5(H) 0.0 - 29.0 mg/g 07/29/2023 7:44 PM EST [facility] Creatinine, Urine 103.2 mg/dL 07/29/2023 7:44 PM EST [facility] Microalbumin, Urine 220.8 mg/dL 07/29/2023 7:44 PM EST [facility] Urine Urine specimen obtained by clean catch procedure / Unknown Collection / Unknown 07/29/2023 1:18 PM EST 07/29/2023 1:18 PM EST Lester Fine MD URINE ORDERABLES Final Re sult [facility]
[address] [place] [address], * (ABNORMAL) Mammo Diagnostic Digital Tomosynthesis Bilateral With CAD (12/24/2017 9:20 AM EDT) Anatomical Region Laterality Modality Breast Bilateral Mammography 12/24/2017 10:1 7 AM EDT Impressions 12/24/2017 11:16 AM EDT BI-RADS 4 SUSPICIOUS ABNORMALITY LEFT BREAST RECOMMENDATION: Ultrasound-guided fine-needle aspiration of a prominent left axillary lymph node. Material will be sent for both cytology as well as for flow cytometry. If results are benign reactive adenopathy than 6 month follow-up diagnostic bilateral mammogram would be recommended. The standard false-negative rate of mammography is between 10% and 25%. Complex patterns or increased breast density will markedly elevate the false-negative rate of mammography. A results letter, in lay terminology, will be given to the patient at the conclusion of the exam. ____ Physician Order Ultrasound Guided Fine Needle Aspiration Left Axillary Lymph Node Diagnosis: Abnormal Mammogram This report was finalized on 12/24/2017 11:[address] Jane Paul MD. Narrative 12/24/2017 11:16 AM EDT EXAMINATION: BILATERAL DIAGNOSTIC DIGITAL MAMMOGRAM WITH TOMOSYNTHESIS AND TARGETED BILATERAL BREAST ULTRASOUND HISTORY: Second opinion from outside study. Patient provides no history to explain bilateral axillary adenopathy. TECHNIQUE: 2-D 3-D standard views of both breasts, combination 2-D 3-D right CC and right MLO spot compression views, combination 2-D 3-D right bilateral 90 degree anterior compression lateral views. COMPARISON: Comparison is made to outside digitized mammograms dating back to 09/08/2011. FINDINGS: The breast tissue is fatty replaced. There is bilateral axillary adenopathy. No suspicious masses, microcalcifications or areas of architectural distortion are identified. On the right a mass persists in the medial lower right breast. Targeted bilateral axillary ultrasound demonstrates bilateral prominent lymph nodes. Ultrasound of the right breast demonstrates a cluster of microcysts at 5:30, 4 cm from the nipple accounting for the mass on mammography and tomography. us Flakita Alejandro MD IMG MAMMOGRAPHY ORDERABLE S Final Result from Last 3 Months or Most Recently Relevant to Health Maintenance Insurance MEDICARE A & B MEDICAID [place] Care Teams Collar Fuser Relationship Specialty Start Date End Date Kinza Bennett MD [address] [place] [id number] PCP - General Family Medicine 05/27/16
--- OUTSIDE RECORDS SUMMARY | 2025-05-11 17:32 | XMS_ITS | Encounter Summary ---
[facility] [address] [place] [address] Care Team Providers Care Optical Engineer Name Role Phone Kinza Bennett MD Primary Care Provider + Encounter Details Date Type Department Care Team (Late st Contact Info) Description 03/28/2025 Telephone [facility] MEDICAL [facility] ENDOCRINOLOGY [address] [address] Lester Fine MD [address] [facility] [address] [place], [place] [id number] Social History Tobacco Use Types Packs/Day Years [...] encounter Miscellaneous Notes * Telephone Encounter - Lexie Balderrama RegSched Rep - 03/28/2025 9:10 AM EDT The [facility] received a fax that requires your attention. The document has been indexed to the patient???s chart for your review. Reason for sending: DIABETIC SUPPLIES - PATIENT REQUEST FOR FOR SIGNATURE Name of Sender: [employer] [address] [place] [address] PHONE [phone] FAX [phone] Date Indexed: 03-28-2025 Notes (if needed): INDEXED UNDER MEDIA TAB. documented in this encounter Plan of Treatment Upcoming Encounters Date Type Department Care Team (Late st Contact Info) Description 05/24/2025 10:45 AM EST Office Visit [facility] ENDOCRINOLOGY [address] [address] Jostin Collins MD [address] [address] documented as of this encounter Visit Diagnoses Not on filedocumented in this encounter Care Teams Optical Engineer Relationship Specialty Start Date End Date Kinza Bennett MD [address] [place] [id number] PCP - General Family Medicine 05/27/16 documented as of this encounter
--- OUTSIDE RECORDS SUMMARY | 2025-05-11 17:32 | XMS_ITS | Encounter Summary ---
[facility] [address] [place] [address] Care Team Providers Care Emissions Testing And Repair Technician Name Role Phone Kinza Bennett MD Primary Care Provider + Encounter Details Date Type Department Care Team (Late st Contact Info) Description 05/04/2025 Telephone [facility] END[facility]CRINOLOGY [address] [facility] [address] [place] [address] Jostin Collins MD [address] Count Includes [facility] [address] [place] [address] Social History Tobacco Use Types Packs/Day Years [...] as of this encounter Plan of Treatment Upcoming Encounters Date Type Department Care Team (Late st Contact Info) Description 05/24/2025 10:45 AM EST Office Visit [facility] ENDOCRINOLOGY [address] [phone] Jostin Collins MD [facility] [address] documented as of this encounter Visit Diagnoses Not on filedocumented in this encounter Care Teams Emissions Testing And Repair Technician Relationship Specialty Start Date End Date Kinza Bennett MD [address] [address] PCP - General Family Medicine 05/27/16 documented as of this encounter
--- OUTSIDE RECORDS SUMMARY | 2025-05-11 17:32 | XMS_ITS | Encounter Summary ---
Author Organization [facility] Address [address] [place] [address] Care Team Providers Care Driver Salesman Name Role Phone Kinza Bennett MD Primary Care Provider + Encounter Details Date Type Department Care Team (Late st Contact Info) Description 05/03/2025 Telephone [facility] MEDICAL [email or web address] ENDOCRINOLOGY [address] [address] Lester Fine MD [address] [facility] [address] [place], [place] [id number] Social History Tobacco Use Types Packs/Day Years [...] Encounter - Ashleigh Villalba MA - 05/03/2025 11:56 AM EST Patient not seen in over a year. Paperwork will need to be signed when patient is seen in May. * Telephone Encounter - Leo Gore MA - 05/03/2025 11:42 AM EST Patient had most recently seen Dr. Fine. Paperwork would need to be signed by Dr. Fine * Telephone Encounter - Beatrice Elam RegSched Rep - 05/03/2025 9:32 AM EST [facility] called regarding needing a form they had faxed to our office for patients CGM supplies. [facility] patients supplies are due to be shipped out today, but the order they have from our from 2022 is . They are needing form faxed to [phone]. documented in this encounter Plan of Treatment Upcoming Encounters Date Type Department Care Team (Late st Contact Info) Description 05/24/2025 10:45 AM EST Office Visit [facility] ENDOCRINOLOGY [address] [phone] Jostin Collins MD [address] [address] documented as of this encounter Visit Diagnoses Not on filedocumented in this encounter Care Teams Driver Salesman Relationship Specialty Start Date End Date Kinza Bennett MD [address] [address] PCP - General Family Medicine 05/27/16 documented as of this encounter
--- NOTE | 2025-05-11 17:38 | ED_ITS ---
<Statement entered by Guy Martinez DO - 05/12/25 01:19> I was consulted by the ZEN, and we discussed the complexity of problems being addressed. I approved the treatment and management plan for this patient's care in the emergency department, thus performing a substantive portion of the medical decision making. Guy Martinez DO I did independently evaluate this patient. Patient states that she has a history of end-stage renal disease and chronic pleural effusions. This is because her to develop acute hypoxic respiratory failure in the past necessitating thoracentesis x 2. Patient tells me that she was recently evaluated by her seamless tube roller and they changed her target weight to several kilograms lower than what it currently is in an effort to pull off enough fluid to rid of her pleural effusions. She states that this week was the first week that they began pulling more fluid than they have in the past. She states that after her last dialysis session on Wednesday she began feeling horrible with bodyaches and an overall feeling of malaise. She also reports musculoskeletal pain in her back as well as nausea and aversion to food. Workup was initiated with hematologic labs. Labs were personally interpreted by me and demonstrate no leukocytosis and no actionable anemia. Patient does not have any electrolyte derangements that are actionable. Her potassium is normal at 4.5. Her creatinine is stably elevated. We did obtain a troponin and delta troponin which were stable at 0.02. She is not having any chest pain so I do not feel that this is actionable at this time. I discussed with the patient that she is likely feeling the way that she is feeling in the setting of adjusting her dialysis regimen and that it may take her body some time to adjust. We will send her with a prescription of Robaxin for the muscle aches and back pain that she is experiencing. We would also send her with Zofran for the nausea. I have asked her to return to the emergency department if she develops fevers, chest pain, shortness of breath, or any other worsening symptoms. At this time all questions were answered and all parties were agreeable discharge Discharge Plan Disposition Patient Disposition: Home, Self-Care Prescriptions Prescriptions: New methocarbamol 500 mg tablet 500 mg PO BID 7 Days Qty: 14 0RF ondansetron 4 mg tablet,disintegrating 4 mg PO DAILY 3 Days Qty: 3 0RF No Action ciprofloxacin HCl 250 MG tablet 250 mg PO BID 7 Days Qty: 14 0RF doxazosin 1 MG tablet 1 mg PO DAILY pravastatin 80 MG tablet 80 mg PO DAILY lisinopril 30 tablet 30 mg PO BID metoprolol succinate 25 MG tablet extended release 24 hr 25 mg PO BID calcitriol 0.25 capsule 0.25 mg PO WEEKLY insulin aspart U-100 [Novolog FlexPen U-100 Insulin] 100 insulin pen 10 - 14 units SQ TID ezetimibe [Zetia] 10 MG tablet 10 mg PO HS insulin degludec [Tresiba FlexTouch U-100] 100 UNIT/ML insulin pen 32 unit SQ BID prednisolone acetate 5 ML drops,suspension 1 - 2 drops EYE-BOTH QID Qty: 1 0RF cefdinir 300 MG capsule 300 mg PO BID Qty: 14 0RF Referrals Follow up/Referrals: Kinza Bennett [Primary Care Provider, Medical] - See instructions Activity Restrictions/Add. Instructions Additional Instructions/Restrictions: Today you were evaluated in the emergency department. Please follow-up with your PCP, follow-up with dialysis Wednesday. Please take the Robaxin for your back pain and Zofran for nausea. Return to the ED for any worsening of your condition. Clinical Impressions Clinical Impression: Fatigue, Chronic renal failure, Pleural effusion, Back pain, Nausea Instructions Patient Instructions: DI for Fatigue Print Language Print Language: Kazakh Discharge ED Provider: Guy Martinez Adult HPI General Chief complaint: Weakness Stated complaint: Possibly Dehydrated; General Weakness; Nausea Time Seen by Provider: 05/11/25 17:24 Mode of Arrival: Ambulatory Source of Information: Patient Description of Symptoms (Recalled from ER Triage Doc. by RN): Reports that she had dialysis on Wednesday and feels like they took too much fluid off. States they took off 1.5L and they have never done that before. Reports weakness, dizziness, nausea and lower back pain. States she did not feel well today so she did not go to dialysis today. History of Present Illness HPI narrative: patient is a 75-year-old female PMHx diabetes, renal failure, currently on dialysis who presents to the ED with complaints of generalized fatigue and concern for dehydration. Patient states that her last dialysis appointment they increased the amount of fluid they take off of her, she states she has felt excessively fatigued since then. Related Data Home Medications ?Medication ?Instructions ?Recorded ?Confirmed calcitriol 0.25 mcg capsule 0.25 mg PO WEEKLY kidney/t hyroid 11/23/17 04/24/18 doxazosin 1 mg tablet 1 mg PO DAILY bp 11/23/17 insulin aspart U-100 100 unit/mL 10 - 14 units SQ TID blood sugatr 11/23/17 11/29/17 (3 mL) subcutaneous pen (Novolog FlexPen U-100 Insulin aspart) lisinopril 30 mg tablet 30 mg PO BID Hypertension 09/12/21 metoprolol succinate 25 mg 25 mg PO BID Hypertension 0 11/23/17 09/12/21 tablet,extended release 24 hr pravastatin 80 mg tablet 80 mg PO DAILY Cholesterol 0 11/23/17 09/12/21 ezetimibe 10 mg tablet (Zetia) 10 mg PO HS Cholesterol 04/24/18 04/24/18 insulin degludec 100 unit/mL (3 32 unit SQ BID DM 10/0604/24/18 mL) subcutaneous pen (Tresiba FlexTouch U-100 insulin) Previous Rx's ?Medication ?Instructions ?Recorded prednisolone acetate 1 % eye 1 - 2 drops EYE-BOTH QID ##1 04/24/18 drops,suspension cefdinir 300 mg capsule 300 mg PO BID #14 caps 01/29 ciprofloxacin HCl 250 mg tablet 250 mg PO BID 7 days # 14 tabs 09/12/21 methocarbamol 500 mg tablet 500 mg PO BID 7 days #14 t abs 05/11/25 ondansetron 4 mg disintegrating 4 mg PO DAILY 3 days # 3 tabs 05/11/25 tablet Allergies Allergy/AdvReac Type Severity Reaction Status Date / Time atorvastatin (From LIPITOR) Allergy Mild ACHEY Verified 01/29/21 10:05 [facility] Disclaimer: The information contained in this section may have been updated after the patient was seen, as this information can be updated by other users. Social History Smoking Status: Never smoker alcohol intake: never current occupational status: other Travel in the last 8 weeks?: None caffeine: Yes Have you lived/traveled outside [place] in past 30 days?: No Contact w/someone who lives/traveled outside [place] past 30 days?: No Exposure to someone with infectious disease in past 14 days?: No Do you have a fever (greater than 100.4 F or 38 C)?: No Have you tested positive for COVID-19?: No Exposed to someone with COVID-19 in past 14 days?: No Do you have a sore throat?: No Do you have a cough?: No Do you have any weakness?: Yes Do you have any diarrhea?: No Are you experiencing any unusual bleeding?: No Do you have any muscle aches/pain?: No Do you have any abdominal pain?: Yes Are you experiencing loss of taste or smell?: No ROS Obtained: Yes Systems reviewed as appropriate & no additional complaints except as documented Physical Exam General General appearance: alert Eye Eye exam: Present PERRL Neck Neck exam: Present full ROM Chest Chest inspection: Present normal inspection Respiratory Respiratory exam: Present normal lung sounds bilaterally; Absent respiratory distress Cardiovascular Cardiovascular exam: Present regular rate Abdominal Exam Abdominal exam: Present soft; Absent distention or tenderness Back Exam Back exam: Present full ROM Neurological Exam Neurological exam: Present alert and oriented X3 Skin Skin exam: Present dry Medical Decision Making Medical Records Screening: Per USPSTF and CDC recommendations, given the prevalence of disease in our region, it is our hospital?s policy to screen for HIV and viral Hepatitis for all patients aged 18 and over and those with ongoing risk factors. Dirk Inquiry Pt receiving controlled substance: No Vital Signs: 05/11/25 17:32 05/11/25 17:42 05/11/25 18:00 Temperature 98.2 F Temperature Source Oral Pulse Rate 81 79 Pulse Rate [Radial] 81 Respiratory Rate 18 21 19 Blood Pressure 166/71 H 171/75 H Blood Pressure [Right Arm] 149/56 H Blood Pressure Mean [Right Arm] 87 Blood Pressure Source [Right Arm] Automatic Cuff Blood Pressure Position [Right Arm] Sitting 02 Sat by Pulse Oximetry 97 95 96 Oxygen Delivery Method Room Air Room Air 05/11/25 18:30 05/11/25 20:09 Temperature 98.4 F Temperature Source Oral Pulse Rate 80 74 Pulse Rate [Radial] Respiratory Rate 21 20 Blood Pressure 171/71 H 132/78 Blood Pressure [Right Arm] Blood Pressure Mean [Right Arm] Blood Pressure Source [Right Arm] Blood Pressure Position [Right Arm] 02 Sat by Pulse Oximetry 95 Oxygen Delivery Method Room Air Room Air Lab Data Lab Results 05/11/25 17:32: WBC 5.6, RBC 3.77 L, Hgb 11.6 L, Hct 36.4 L, MCV 96.6, MCH 30.8, MCHC 31.9, RDW 16.8, Plt Count 97 L, MPV 12.1 H, Neut % (Auto) 70.5, Lymph % (Auto) 23.1, Craven % (Auto) 4.8, Eos % (Auto) 0.5, Baso % (Auto) 0.7, Neut # (Auto) 3.9, Lymph # (Auto) 1.3, Craven # (Auto) 0.3, Eos # (Auto) 0.0, Baso # (Auto) 0.0, Sodium 132 L, Potassium 4.5, Chloride 97 L, Carbon Dioxide 24, Anion Gap 15.5 H, BUN 42 H, Creatinine 4.60 H, Estimated Creat Clear 12, Estimated GFR 9 L*, Est GFR ( Amer) 11 L*, Glucose 150 H, Calcium 9.5, Total Bilirubin 0.7, AST 34, ALT 32, Alkaline Phosphatase 75, Troponin I 0.02, NT-Pro-B Natriuret Pep 9350 H, Total Protein 6.4 D, Albumin 4.4, Globulin 2.0, A lbumin/Globulin Ratio 2.2 H, HCV Ab JONNIE w/Rflx PCR Qn Negative, HIV Ag/Ab Combo Qual Negative 05/11/25 19:39: Troponin I 0.02 05/11/25 17:32 05/11/25 17:32 Orders (Tests/Meds): ED MEDICATIONS Discontinued Medications Generic Name Dose Route Start Last Admin Trade Name Freq PRN Reason Stop Dose Admin Lidocaine 1 each 05/11/25 19:44 05/11/25 19:49 Lidocaine 5% Transdermal Patch TD 05/11/25 19:45 1 each ONCE ONE Administration Methocarbamol 500 mg 05/11/25 18:26 05/11/25 18:35 Methocarbamol 500mg Tablet PO 05/11/25 18:27 500 mg ONCE ONE Administration Ondansetron HCl 4 mg 05/11/25 18:26 05/11/25 18:35 Ondansetron 4mg/2ml Vial IV 05/11/25 18:27 4 mg ONCE ONE Administration ORDERS Category Date Time Status CXR --portable [XR chest portable] Stat Exams 05/11/25 17:42 Completed BNP [NT Pro Brain Natriuretic Pep.] Stat Lab 05/11/25 17:32 Completed CBC w/Auto Diff [Complete Blood Count Auto Diff] Stat Lab 05/11/25 17:32 Completed CMP [Comprehensive Metabolic Panel] Stat Lab 05/11/25 17:32 Completed HIV Combo Stat Lab 05/11/25 17:32 Completed Hepatitis C Ab Qual. W/ RFX Stat Lab 05/11/25 17:32 Completed Trop I [Troponin I] Stat Lab 05/11/25 17:32 Completed Troponin I Q3H Lab 05/11/25 19:39 Completed Troponin I Q3H Lab 05/11/25 23:45 Ordered Urinalysis and Microscopic Stat Lab 05/11/25 17:36 Ordered Medical Decision Narrative: In summary, patient is a 75-year-old female PMHx diabetes, renal failure, currently on dialysis who presents to the ED with complaints of generalized fatigue and concern for dehydration. Patient states that her last dialysis appointment they increased the amount of fluid they take off of her, she states she has felt excessively fatigued since then. She reports that she has mild lower back pain. She denies any other complaints at this time. She states she has been having vaginal bleeding from a uterine fibroid but that is being evaluated by her primary physician. Patient states she has still been urinating. Denies fever, chills, body aches, headache, visual disturbances, chest pain, shortness of breath, abdominal pain, dysuria. Differential diagnosis includes dehydration, electrolyte abnormality, infectious process, ACS, among others. Upon initial evaluation patient is alert, oriented and cooperative. She is hemodynamically stable. CBC unremarkable for leukocytosis, stable H&H. CMP remarkable for sodium 132, anion gap 15.5, BUN 42, creatinine 4.60, GFR 9, all of this appears to be baseline. BNP 9,350. First troponin 0.02. Chest x-ray remarkable for bilateral pleural effusions. I discussed with patient workup is overall unremarkable other than her increasing kidney function which is most likely due to her missing dialysis today. Discussed the bilateral pleural effusions and patient states that she has had those for quite a while and they are chronic. Discussed that she will need to make sure that she goes to dialysis Wednesday. Patient states she is still having mild lower back pain but has improved since her Robaxin and Lidoderm patch. Discussed need for follow-up. Discussed return precautions to the ED and patient and family verbalized understanding. Critical Care Critical Care Time Critical Care Time: No
[2025-05-11 17:42] VITALS: BP 166/71; PULSE 81; RESP 21; O2SAT 95
--- NOTE | 2025-05-11 17:42 | XR_ITS ---
PROCEDURE INFORMATION: Exam: XR Chest Exam date and time: 05/11/2025 5:44 PM Age: 75 years old Clinical indication: Shortness of breath and other: Cp; Additional info: Cp SOA TECHNIQUE: Imaging protocol: Radiologic exam of the chest. Views: 1 view. COMPARISON: No relevant prior studies available. FINDINGS: Lungs: Right lower lobe atelectasis. Pleural spaces: Bilateral pleural effusions left greater than right. Heart/Mediastinum: Unremarkable. No cardiomegaly. Bones/joints: Unremarkable. IMPRESSION: 1. Right lower lobe atelectasis. 2. Bilateral pleural effusions left greater than right.
[2025-05-11 17:45] LABS: Hematocrit 36.4 % (37.0-47.0); Hemoglobin 11.6 g/dL (12.2-16.2); Immature Granulocytes % 0.4 %; Mean Corpuscular HGB Conc 31.9 g/dL (31.8-35.4); Mean Corpuscular Hemoglobin 30.8 pg (27.0-31.2); Mean Corpuscular Volume 96.6 fl (81-99); Nucleated Red Blood Cells % 0 %; Platelet Count 97 K/mm3 (142-424); Red Blood Count 3.77 M/mm3 (4.20-5.40); Red Cell Distribution Width-SD 59.4 fL; White Blood Count 5.6 K/mm3 (4.8-10.8)
[2025-05-11 17:54] LABS: Alanine Aminotransferase 32 U/L (12-78); Albumin Level 4.4 g/dl (3.5-5.0); Albumin/Globulin Ratio 2.2 (1.1-1.8); Alkaline Phosphatase 75 U/L (38-126); Anion Gap 15.5 mEq/L (5-15); Aspartate Amino Transferase 34 U/L (14-36); Bilirubin,Total 0.7 mg/dl (0.2-1.3); Blood Urea Nitrogen 42 mg/dl (7-17); Calcium 9.5 mg/dl (8.4-10.2); Carbon Dioxide 24 mmol/L (22.0-30.0); Chloride 97 mmol/L (98-107); Creatinine Clearance Estimated 12 mL/min (50-200); Estimated Glomerular Filt Rate 9 ml/min (>60); GFR (African American) 11 ML/MIN (>60); Globulin 2.0 g/dL (1.3-3.2); Glucose 150 mg/dl (74-100); Potassium 4.5 mmoL/L (3.5-5.1); Sodium 132 mmol/L (136-145); Total Protein,Serum 6.4 g/dl (6.3-8.2)
[2025-05-11 18:00] VITALS: BP 171/75; PULSE 79; RESP 19; O2SAT 96
[2025-05-11 18:00] LABS: Creatinine,Serum 4.60 mg/dl (0.52-1.04)
--- NOTE | 2025-05-11 18:00 | PC.NURSE ---
Sam MARTINEZ notified of CR 4.6
[2025-05-11 18:06] LABS: NT Pro Brain Natriuretic Pep. 9350 pg/mL (0-450); Troponin I 0.02 ng/ml (0.00-0.034)
[2025-05-11 18:30] VITALS: BP 171/71; PULSE 80; RESP 21; O2SAT 95
[2025-05-11] MEDS: METHOCARBAMOL 500MG TABLET 500 MG PO (18:35)
[2025-05-11] MEDS: ONDANSETRON 4MG/2ML VIAL 4 MG IV (18:35)
--- NOTE | 2025-05-11 19:23 | PC.NURSE ---
Applied 2L NC
[2025-05-11 19:40] LABS: Hepatitis C Ab Qual. W/ RFX NEGATIVE (Negative)
--- NOTE | 2025-05-11 19:43 | PC.NURSE ---
Sent 2nd troponin to lab. Called lab to let them know, Provider wanted a 2hr
[2025-05-11] MEDS: LIDOCAINE 5% TRANSDERMAL PATCH 1 EACH TD (19:49)
[2025-05-11 20:06] LABS: Troponin I 0.02 ng/ml (0.00-0.034)
[2025-05-11 20:09] VITALS: BP 132/78; PULSE 74; RESP 20; TEMP 36.9; O2SAT 98
== END 2025-05-11 20:14 | disposition home or self-care (01) ==
PROVIDERS: Nurse Practitioner; Emergency Provider Student in an Organized Health Care Education/Training Program; PCP Family Medicine
DX: M54.59 Other low back pain (principal); R11.0 Nausea; R53.81 Other malaise; E87.1 Hypo-osmolality and hyponatremia; N18.6 End stage renal disease; J90 Pleural effusion, not elsewhere classified; I12.0 Hypertensive chronic kidney disease with stage 5 chronic kidney disease or end stage renal disease; E11.22 Type 2 diabetes mellitus with diabetic chronic kidney disease; Z99.2 Dependence on renal dialysis
CPT/HCPCS: 71045; 80053; 83880; 84484; 85025; 86803; 87389; 96374; 99285; J2405